=== PATIENT | male | born 1985 | race Caucasian/White ===

== ENCOUNTER → 2020-07-28 13:38 | Outpatient (CLI) | payer OTHER, SELFPAY ==
--- NOTE | ~2020-07-28 | US_ITS ---
EXAMINATION: US retroperitoneal comp DATE: 07/28/2020 14:05 INDICATION: Renal colic. Abdominal pain. Enlarged kidney. TECHNIQUE: Multiple ultrasound grayscale images of the kidneys were obtained. COMPARISON: None. FINDINGS: The right kidney measures 13.5 x 5.6 x 6.5 cm. The left kidney measures 14.0 x 6.2 x 6.0 cm. The kidn eys demonstrate normal echogenicity. Left hydronephrosis. 7 mm echogenic and shadowing stone at the l ower pole of the left kidney. No right-sided hydronephrosis or nephrolithiasis. The bladder is normal . IMPRESSION: 1. Mild left hydronephrosis with 7 mm stone at the lower pole of the left kidney suggesting possibil ity of a nonvisualized obstructing renal stone. Reviewed, dictated and finalized at location A. IMPRESSION: 1. Mild left hydronephrosis with 7 mm stone at the lower pole of the left kidn ey suggesting possibility of a nonvisualized obstructing renal stone.
== END ==
PROVIDERS: Visit Provider Urology
DX: N23 Unspecified renal colic (principal)
CPT/HCPCS: 76770

== ENCOUNTER → 2020-08-10 08:01 | Outpatient (CLI) | payer OTHER, SELFPAY ==
--- NOTE | ~2020-08-10 | CT_ITS ---
EXAMINATION: CT abdomen pelvis wo con EXAM DATE: 08/10/2020 08:21 INDICATION: Renal colic. TECHNIQUE: Spiral CT of the abdomen and pelvis was performed without contrast. Axial, coronal and sag ittal images were reviewed. The dose-length product (DLP) for this examination was 766.34 mGy-cm. T he exposure was tailored according to patient size (auto mA exposure control), and iterative reconstr uction (ASIR) was used as additional dose reduction technique. There is no prior study for compariso n. FINDINGS: There are bilateral kidney stones, larger stone burden on the left with an inferior stone o r stones measuring about 9 mm in size. There are 2 punctate right calyceal stones. Mildly dilated rig ht renal pelvis, but no obstructing ureteral stones. The prostate is unremarkable. The bladder is un remarkable. The liver, spleen, adrenal glands and pancreas are unremarkable. Gallbladder is unremar kable. No biliary obstruction. There is no retroperitoneal or pelvic lymphadenopathy. The appendix is normal. The stomach and small bowel are unremarkable. There is expected amount of c olonic stool. No free intraperitoneal gas. The heart is normal in size. There are no pericardial or pleural effusions. The lung bases are unremarkable. The bones are unremarkable. IMPRESSION: Bilateral calyceal stones. Dilated left renal pelvis without obstructing etiology identif ied. Reviewed, dictated and finalized at location A. IMPRESSION: Bilateral calyceal stones. Dilated left renal pelvis without obstru cting etiology identified.
== END ==
PROVIDERS: PCP Internal Medicine; Visit Provider Urology
DX: N23 Unspecified renal colic (principal); N20.0 Calculus of kidney
CPT/HCPCS: 74176

== ENCOUNTER → 2020-08-22 10:06 | Outpatient (CLI) | payer OTHER, SELFPAY ==
--- NOTE | ~2020-08-22 | XR_ITS ---
XR abdomen/kub 1V 08/22/2020 10:45 Indication: Renal colic Procedure: KUB Comparison: No prior studies for comparison. Findings: Bowel gas pattern is nonobstructive. Moderate colonic fecal loading. There are clustered st ones in the left kidney. No acute osseous abnormality. Impression: 1: Left nephrolithiasis. Reviewed, dictated and finalized at location A. Impression: 1: Left nephrolithiasis.
== END ==
PROVIDERS: PCP Internal Medicine; Visit Provider Urology
DX: N20.0 Calculus of kidney (principal)
CPT/HCPCS: 74018

== ENCOUNTER → 2020-09-29 15:24 | Outpatient (CLI) | payer OTHER, SELFPAY ==
--- NOTE | ~2020-09-29 | XR_ITS ---
XR abdomen/kub 1V 09/29/2020 15:41 Indication: Renal colic Procedure: KUB Comparison: 08/22/2020 Findings: There are multiple left renal stones. Bowel gas pattern nonobstructive. Moderate colonic fe lesli loading. No acute osseous abnormality. Impression: 1: Left nephrolithiasis. Reviewed, dictated and finalized at location A. Impression: 1: Left nephrolithiasis.
== END ==
PROVIDERS: PCP Internal Medicine; Visit Provider Nurse Practitioner Adult Health
DX: N23 Unspecified renal colic (principal); N20.0 Calculus of kidney
CPT/HCPCS: 74018

== ENCOUNTER → 2020-10-07 10:24 | Outpatient (CLI) | payer OTHER, SELFPAY ==
--- NOTE | ~2020-10-07 | XR_ITS ---
EXAMINATION: XR abdomen/kub 1V DATE: 10/07/2020 11:55 INDICATION: Left ureteral stone. TECHNIQUE: A supine view of the abdomen on 2 radiographs was obtained. COMPARISON: 09/29/2020 FINDINGS: 11 mm cluster of stones at a lower pole calyx of the left kidney. There are three, 3-4 mm stones in t he mid to distal left ureter projecting over the left sacral ala projecting medial to couple unchange d bone islands. No stones seen at the right kidney or ureter. Moderate amount of stool scattered thro ughout the colon. No dilated loops of bowel to suggest obstruction. Visualized lung bases are clear. Heart size is normal. IMPRESSION: 1. Left nephrolithiasis with 1 mm cluster of stones at a lower pole calyx of the left kidney and thre e, 3-4 mm stones in the mid to distal left ureter. Reviewed, dictated and finalized at location A. IMPRESSION: 1. Left nephrolithiasis with 1 mm cluster of stones at a lower pole calyx of th e left kidney and three, 3-4 mm stones in the mid to distal left ureter.
== END ==
PROVIDERS: PCP Internal Medicine; Visit Provider Urology
DX: N20.1 Calculus of ureter (principal)
CPT/HCPCS: 74018

== ENCOUNTER 2020-10-10 07:06 | Outpatient (CLI) | payer OTHER, SELFPAY ==
--- NOTE | 2020-10-10 07:23 | ECG_ITS ---
Measurements Intervals [place] Rate: 76 P: 50 ME: 135 QRS: 50 QRSD: 117 T: 28 QT: 379 QTc: 428 Interpretive Statements SINUS RHYTHM WITH SINUS ARRHYTHMIA MODERATE INTRAVENTRICULAR CONDUCTION DELAY BORDERLINE ST-T WAVE ABNORMALITY- INFERIOR LEADS BORDERLINE ECG Electronically Signed On 10-10-2020 8:13:36 CDT by Steve Tejada D.O.
[2020-10-10 07:39] LABS: Anion Gap 10 mmol/L (8-16); Blood Urea Nitrogen 12 mg/dL (9-20); Calcium 10.1 mg/dL (8.4-10.2); Carbon Dioxide 30 mmol/L (22-30); Chloride 100 mmol/L (98-107); Estimated Glomerular Filt Rate > 60; Glucose 153 mg/dL (65-110); Potassium 4.1 mmol/L (3.4-5.0); Sodium 140 mmol/L (137-145)
== END 2020-10-10 07:07 | disposition home or self-care (01) ==
PROVIDERS: PCP Internal Medicine; Visit Provider Anesthesiology
DX: E11.9 Type 2 diabetes mellitus without complications (principal); Z01.818 Encounter for other preprocedural examination; I45.9 Conduction disorder, unspecified
CPT/HCPCS: 36415; 80048; 93005

== ENCOUNTER 2020-10-10 21:29 | Emergency (ER) | payer OTHER, SELFPAY ==
[2020-10-10] VITALS (16 sets, daily range): BP systolic 117–150; BP diastolic 80–96; PULSE 97; RESP 18; TEMP 36.7; O2SAT 94–100
--- NOTE | ~2020-10-10 | CT_ITS ---
EXAMINATION: CT abdomen pelvis wo con DATE: 10/10/2020 22:24 INDICATION: Left flank pain TECHNIQUE: Computed tomography (CT) of the abdomen and pelvis was performed without intravenous contr ast. Automated exposure control and iterative reconstruction technique were employed. The dose-length product was 449.75 mGy-cm. COMPARISON: 08/10/20 FINDINGS: Unchanged 5 mm right middle lobe nodule. Heart size is normal. No pericardial or pleural effusion. Li galo, gallbladder, spleen, pancreas and bilateral adrenal glands are normal. Bowels including the appe ndix are normal. No free intraperitoneal gas or fluid. No pathologically enlarged abdominal or pelvic lymphadenopathy. Mild degenerative skeletal changes in the spine and at the bilateral hips. There is a cluster of 4 stones measuring from 3-5 mm at the distalmost left ureter. There is more pro ximal mild left hydroureter and moderate to severe left hydronephrosis. 8 mm stone at a lower pole ca lyx of the left kidney with a couple additional punctate 1 mm or smaller right renal stones. 3 mm and 2 mm nonobstructing stones in the right kidney. Latter is normal. IMPRESSION: 1. Bilateral nephrolithiasis with a linear collection of four, 3-5 mm stones at the distalmost left u reter resulting in moderate to severe left hydronephrosis. Reviewed, dictated and finalized at location A. IMPRESSION: 1. Bilateral nephrolithiasis with a linear collection of four, 3-5 mm stones at the distalmost left ureter resulting in moderate to severe left hydronephrosis .
[2020-10-10] MEDS: SODIUM CHLORIDE 0.9% IV 1,000 ML 999 ML IV CONT (22:07)
[2020-10-10] MEDS: MORPHINE SULFATE (*CRX) 4 MG/ML INJ IV PUSH (22:08)
[2020-10-10] MEDS: ONDANSETRON INJ 4 MG/2 ML VIAL IV PUSH (22:08)
[2020-10-10 22:19] LABS: Basophils Percent Auto 0.4 % (0.2-1.2); Eosinophils Percent Auto 0.4 % (0-4.4); Hematocrit 43.2 % (42.0-52.0); Hemoglobin 14.3 g/dL (14.0-18.0); Immature Granulocyte Absolute 0.01 K/mm3 (0.00-0.031); Immature Granulocyte Percent A 0.1 % (0-0.5); Lymphocytes Absolute Auto 0.93 K/mm3 (0.9-3.2); Lymphocytes Percent Auto 11.3 % (18.3-44.2); Mean Corpuscular HGB Conc 33.1 g/dl (32-36); Mean Corpuscular Hemoglobin 29.1 pg (26-34); Mean Platelet Volume 9.8 fl (7.4-10.4); Monocytes Absolute Auto 0.8 K/mm3 (0.1-0.6); Monocytes Percent Auto 9.9 % (2.6-8.5); Neutrophils Absolute Auto 6.4 K/mm3 (1.3-6.7); Neutrophils Percent Auto 77.9 % (45.5-73.1); Platelet Count Result 251 k/mm3 (150-375); Red Blood Count 4.91 M/mm3 (4.6-6.20); Red Cell Distribution Width 12.6 % (11.5-14.5); White Blood Count 8.2 K/mm3 (4.5-10.0)
[2020-10-10 22:52] LABS: Alanine Aminotransferase 21 U/L (4-50); Albumin Level 4.2 g/dL (3.5-5.1); Alkaline Phosphatase 68 U/L (38-126); Anion Gap 9 mmol/L (8-16); Aspartate Amino Transferase 31 U/L (17-59); Bilirubin,Total 0.5 mg/dL (0.2-1.3); Blood Urea Nitrogen 15 mg/dL (9-20); Calcium 9.9 mg/dL (8.4-10.2); Carbon Dioxide 29 mmol/L (22-30); Chloride 97 mmol/L (98-107); Estimated CRCL calculation 115 ml/min; Estimated Glomerular Filt Rate > 60; Glucose 191 mg/dL (65-110); Lipase 114 U/L (23-300); Potassium 3.7 mmol/L (3.4-5.0); Sodium 135 mmol/L (137-145)
[2020-10-10 23:02] LABS: Add Urine Microscopic? YES; Appearance Urine Clear (Clear); Bilirubin Urine Negative (Negative); Blood Urine 3+ (Negative); Color Urine Yellow (Yellow); Glucose Urine UA 3+ mg/dL (Negative); Ketones Urine Negative (Negative); Leukocyte Esterase Ur Negative LEU/UL (Negative); Mucus Urine Rare /lpf; Nitrate Urine Negative (Negative); Protein Urine 1+ mg/dL (Negative); RBC Urine >75 /hpf (0-2); Specific Grav Ur 1.024 (1.001-1.035); Urobilinogen Urine Negative mg/dL (<2.0); WBC Urine 0-3 /hpf
--- NOTE | 2020-10-10 23:02 | ED.GENADULT ---
HPI - General Adult General Chief complaint: Abdominal Pain Stated complaint: Kidney stone Time Seen by Provider: 10/10/20 21:48 History of Present Illness HPI narrative: Patient a 35-year-old gentleman who presents the emergency department with chief complaint of left-sided flank pain. Patient reports he is being followed for kidney stones by Dr. Garcia and reports that he is currently been attempting to pass a stone. Patient states that it got worse today reports that the pain is sharp reports not improved by anything reports that he is pacing around the room and unable to get comfortable. Patient denies fever Related Data Home Medications Medication Instructions Recorded Confirmed allopurinol 300 mg PO DAILY 10/09/20 10/09/20 atorvastatin 20 mg PO DAILY 10/09/20 10/09/20 dulaglutide [Trulicity] 3 mg SUBCUT WEEKLY 10/09/20 10/09/20 empagliflozin [Jardiance] 10 mg PO DAILY 10/09/20 10/09/20 glimepiride 2 mg PO BID 10/09/20 10/09/20 insulin lispro protamin-lispro 24 unit SUBCUT BID 10/09/20 10/09/20 [Humalog Mix 75-25(U-100)Insuln] metformin 1,000 mg PO BID 10/09/20 10/09/20 tamsulosin mg PO 10/10/20 tamsulosin mg PO 10/10/20 tramadol mg 10/10/20 tramadol mg 10/10/20 Allergies Allergy/AdvReac Type Severity Reaction Status Date / Time No Known Allergies Allergy Verified 10/10/20 21:41 Review of Systems Review of Systems: Narrative: A 10 system review of systems was completed on the patient and is negative except for what is stated in the HPI. Nursing and ancillary documentation was reviewed. [facility] Social History Social History Smoking status: Never smoker Alcohol intake: current Drinks per week: 1 Exam Narrative: Exam Narrative: GENERAL: Well-appearing, well-nourished, and in no acute distress. HEAD: Normocephalic, atraumatic. EYES: PERRLA and EOMI. ENT: Nares clear, no rhinorrhea or epistaxis. Mucous membranes moist. NECK: Supple. CHEST: Clear to auscultation. No respiratory distress. HEART: Regular rate and rhythm. No murmur heard. Normal peripheral pulses. ABDOMEN: Soft, nontender, nondistended, normal active bowel sounds. EXTREMITIES: Normal range of motion. No edema. SKIN: Warm, dry, no rash. NEURO: No focal deficits. Alert and oriented x3. PSYCH: Normal mood and affect. Course Vital Signs Vital signs: Vital Signs Temperature 36.7 C 10/10/20 21:45 Pulse Rate 97 10/10/20 21:45 Respiratory Rate 18 10/10/20 21:45 Blood Pressure 150/96 H 10/10/20 21:45 Pulse Oximetry 100 10/10/20 21:45 Temperature 36.7 C 10/10/20 21:45 Pulse Rate 97 10/10/20 21:45 Respiratory Rate 18 10/10/20 21:45 Blood Pressure 127/81 10/10/20 23:16 Pulse Oximetry 98 10/10/20 23:16 Medical Decision Making Vital Signs Vital Signs: Vital Signs Temperature 36.7 C 10/10/20 21:45 Pulse Rate 97 10/10/20 21:45 Respiratory Rate 18 10/10/20 21:45 Blood Pressure 150/96 H 10/10/20 21:45 Pulse Oximetry 100 10/10/20 21:45 Temperature 36.7 C 10/10/20 21:45 Pulse Rate 97 10/10/20 21:45 Respiratory Rate 18 10/10/20 21:45 Blood Pressure 127/81 10/10/20 23:16 Pulse Oximetry 98 10/10/20 23:16 Lab Data Result diagrams: 10/10/20 22:10 10/10/20 22:10 Labs: Lab Results 10/10/20 10/10/20 10/10/20 Range/Units 22:10 22:10 22:37 WBC 8.2 (4.5-10.0) K/mm3 RBC 4.91 (4.6-6.20) M/mm3 Hgb 14.3 (14.0-18.0) g/dL Hct 43.2 (42.0-52.0) % MCV 88.0 (80-100) fl MCH 29.1 (26-34) pg MCHC 33.1 (32-36) g/dl RDW 12.6 (11.5-14.5) % Plt Count 251 (150-375) k/mm3 MPV 9.8 (7.4-10.4) fl Immature Gran % (Auto) 0.1 (0-0.5) % Neut % (Auto) 77.9 H (45.5-73.1) % Lymph % (Auto) 11.3 L (18.3-44.2) % Gila % (Auto) 9.9 H (2.6-8.5) % Eos % (Auto) 0.4 (0-4.4) % Baso % (Auto) 0.4 (0.2-1.2) % Lymph # (Auto
[2020-10-10] MEDS: HYDROmorphone HCL INJ (*CRX) 1 MG/ML SYR IV PUSH (23:22)
[2020-10-11] VITALS (7 sets, daily range): BP systolic 116–124; BP diastolic 75–78; PULSE 67; RESP 16; O2SAT 95–98
== END 2020-10-11 00:56 | disposition home or self-care (01) ==
PROVIDERS: Emergency Provider Emergency Medicine; PCP Internal Medicine
DX: N13.2 Hydronephrosis with renal and ureteral calculous obstruction (principal); Z79.84 Long term (current) use of oral hypoglycemic drugs; E11.9 Type 2 diabetes mellitus without complications
CPT/HCPCS: 36415; 74176; 80053; 81001; 83690; 85025; 96361; 96374; 96375; 99284; J1170; J2270; J2405; J7030

== ENCOUNTER 2020-10-11 20:08 | Inpatient (IN) | payer OTHER, SELFPAY ==
--- NOTE | ~2020-10-11 | XR_ITS ---
EXAMINATION: XR abdomen/kub 1V DATE: 10/11/2020 20:28 INDICATION: Kidney stone TECHNIQUE: A supine view of the abdomen on 2 radiographs was obtained. COMPARISON: CT dated 10/10/2020 FINDINGS: Steinstrasse with linear collection of multiple small stones measuring up to 5 mm situated along a 2. 5 cm length of the distalmost left ureter. There are a few additional small stones are seen at the lo wer pole of the left kidney and 3 mm stone at the upper pole of the right kidney. Normal bowel gas pa ttern with large amount of stool in the proximal colon. Lung bases are clear. Mild lumbar dextrocurva ture. IMPRESSION: 1. Bilateral nephrolithiasis including steinstrasse with linear collection of multiple stones measuri ng up to 5 mm at the distalmost left ureter. Reviewed, dictated and finalized at location A. IMPRESSION: 1. Bilateral nephrolithiasis including steinstrasse with linear collection of m ultiple stones measuring up to 5 mm at the distalmost left ureter.
--- NOTE | ~2020-10-11 | XR_ITS ---
EXAMINATION: XR retrograde pyelo w/stent LT EXAM DATE: 10/13/2020 12:23 INDICATION: Left-sided retrograde stent. TECHNIQUE: Fluoroscopy used during XR retrograde pyelo w/stent LT performed by Dr. Ian avila MD, urologist. The radiologist Jamarcus Bates M.D. dictating this report of the image(s) availabl e was not present for the procedure. Total fluoroscopic time of 46. The DAP for this procedure was 673 radcm2. A total of 11 images sent to PACS from the exam. Cine run(s) available for review. FINDINGS: Left ureter was cannulated, injected. There is mild left hydronephrosis. A double-J ureter al stent was placed. Correlate with procedure note. IMPRESSION: Mild left hydronephrosis. Stent in position. Reviewed, dictated and finalized at location A.
[2020-10-11 20:09] VITALS: BP 154/97; PULSE 99; RESP 20; TEMP 36.8; O2SAT 99
[2020-10-11 21:00] VITALS: RESP 16; O2SAT 99
[2020-10-11 21:08] LABS: Basophils Percent Auto 0.3 % (0.2-1.2); Eosinophils Percent Auto 0.3 % (0-4.4); Hematocrit 42.3 % (42.0-52.0); Immature Granulocyte Absolute 0.01 K/mm3 (0.00-0.031); Immature Granulocyte Percent A 0.1 % (0-0.5); Lymphocytes Percent Auto 10.2 % (18.3-44.2); Mean Corpuscular HGB Conc 33.1 g/dl (32-36); Mean Corpuscular Hemoglobin 29.2 pg (26-34); Mean Corpuscular Volume 88.3 fl (80-100); Monocytes Absolute Auto 0.7 K/mm3 (0.1-0.6); Monocytes Percent Auto 10.5 % (2.6-8.5); Neutrophils Absolute Auto 5.4 K/mm3 (1.3-6.7); Neutrophils Percent Auto 78.6 % (45.5-73.1); Platelet Count Result 228 k/mm3 (150-375); Red Blood Count 4.79 M/mm3 (4.6-6.20); Red Cell Distribution Width 12.8 % (11.5-14.5); White Blood Count 6.9 K/mm3 (4.5-10.0)
[2020-10-11] MEDS: SODIUM CHLORIDE 0.9% IV 1,000 ML 999 ML IV CONT (21:11)
[2020-10-11] MEDS: ONDANSETRON INJ 4 MG/2 ML VIAL IV PUSH (21:12)
[2020-10-11] MEDS: HYDROmorphone HCL INJ (*CRX) 1 MG/ML SYR IV PUSH (21:12)
[2020-10-11 21:15] VITALS: RESP 16; O2SAT 99
[2020-10-11 21:20] LABS: Alanine Aminotransferase 20 U/L (4-50); Albumin Level 3.8 g/dL (3.5-5.1); Alkaline Phosphatase 53 U/L (38-126); Anion Gap 8 mmol/L (8-16); Aspartate Amino Transferase 26 U/L (17-59); Bilirubin,Total 0.5 mg/dL (0.2-1.3); Blood Urea Nitrogen 11 mg/dL (9-20); Calcium 9.2 mg/dL (8.4-10.2); Carbon Dioxide 29 mmol/L (22-30); Chloride 101 mmol/L (98-107); Estimated CRCL calculation 142 ml/min; Estimated Glomerular Filt Rate > 60; Glucose 147 mg/dL (65-110); Lipase 421 U/L (23-300); Potassium 4.2 mmol/L (3.4-5.0); Sodium 138 mmol/L (137-145)
--- NOTE | 2020-10-11 21:20 | PC.NURSE ---
Addendum entered by Inez Hinson RN 10/11/20 21:24: Pt denies difficulty urinating. urine clear, yellow. voided approx. 450 ml on arrival without issue. Original Note: pt here last night for left flank pain and known kidney stone. scheduled for surgery 10/13 with urology. pt reports no changes and pain similar to last night. iv placed, labs drawn, and pt medicated as ordered. call light in reach.
--- NOTE | 2020-10-11 21:25 | ED.GENADULT ---
HPI - General Adult General Chief complaint: Urogenital-Male Stated complaint: kidney stone Time Seen by Provider: 10/11/20 20:22 History of Present Illness HPI narrative: Patient 35-year-old gentleman who presents the emergency department with chief complaint of flank pain. Patient was seen in the emergency department last night after he had pain from the kidney stone that he is scheduled to have a procedure on Monday. Patient sees Dr. Garcia as his primary urologist and reports that he has a stone in the distal ureter. The patient was taking tramadol was seen in the ER pain was controlled and the patient was started on hydrocodone as an outpatient. The patient returns after he feels as though his pain has gotten worse at home and reports he been unable to manage it at home. Related Data Home Medications Medication Instructions Recorded Confirmed allopurinol 300 mg PO DAILY 10/09/20 10/11/20 atorvastatin 20 mg PO DAILY 10/09/20 10/11/20 dulaglutide [Trulicity] 3 mg SUBCUT WEEKLY 10/09/20 10/11/20 empagliflozin [Jardiance] 10 mg PO DAILY 10/09/20 10/11/20 glimepiride 2 mg PO BID 10/09/20 10/11/20 insulin lispro protamin-lispro 24 unit SUBCUT BID 10/09/20 10/11/20 [Humalog Mix 75-25(U-100)Insuln] metformin 1,000 mg PO BID 10/09/20 10/11/20 tamsulosin 0.4 mg PO DAILY 10/10/20 10/11/20 tramadol 50 mg PO PRN 10/10/20 Allergies Allergy/AdvReac Type Severity Reaction Status Date / Time No Known Allergies Allergy Verified 10/11/20 20:12 Review of Systems Review of Systems: Narrative: A 10 system review of systems was completed on the patient and is negative except for what is stated in the HPI. Nursing and ancillary documentation was reviewed. [facility] Social History Social History Smoking status: Never smoker Alcohol intake: current Drinks per week: 1 Gender identity (if verbalized by the patient): Male Exam Narrative: Exam Narrative: GENERAL: Well-appearing, well-nourished, and in no acute distress. HEAD: Normocephalic, atraumatic. EYES: PERRLA and EOMI. ENT: Nares clear, no rhinorrhea or epistaxis. Mucous membranes moist. NECK: Supple. CHEST: Clear to auscultation. No respiratory distress. HEART: Regular rate and rhythm. No murmur heard. Normal peripheral pulses. ABDOMEN: Soft, nontender, nondistended, normal active bowel sounds. EXTREMITIES: Normal range of motion. No edema. SKIN: Warm, dry, no rash. NEURO: No focal deficits. Alert and oriented x3. PSYCH: Normal mood and affect. Course Vital Signs Vital signs: Vital Signs Temperature 36.8 C 10/11/20 20:09 Pulse Rate 99 10/11/20 20:09 Respiratory Rate 20 10/11/20 20:09 Blood Pressure 154/97 H 10/11/20 20:09 Pulse Oximetry 99 10/11/20 20:09 Temperature 36.8 C 10/11/20 20:09 Pulse Rate 99 10/11/20 20:09 Respiratory Rate 16 10/11/20 21:15 Blood Pressure 154/97 H 10/11/20 20:09 Pulse Oximetry 99 10/11/20 21:15 Medical Decision Making Vital Signs Vital Signs: Vital Signs Temperature 36.8 C 10/11/20 20:09 Pulse Rate 99 10/11/20 20:09 Respiratory Rate 20 10/11/20 20:09 Blood Pressure 154/97 H 10/11/20 20:09 Pulse Oximetry 99 10/11/20 20:09 Temperature 36.8 C 10/11/20 20:09 Pulse Rate 99 10/11/20 20:09 Respiratory Rate 16 10/11/20 21:15 Blood Pressure 154/97 H 10/11/20 20:09 Pulse Oximetry 99 10/11/20 21:15 Lab Data Result diagrams: 10/11/20 21:00 10/11/20 21:00 Labs: Lab Results 10/11/20 10/11/20 Range/Units 21:00 21:00 WBC 6.9 (4.5-10.0) K/mm3 RBC 4.79 (4.6-6.20) M/mm3 Hgb 14.0 (14.0-18.0) g/dL Hct 42.3 (42.0-52.0) % MCV 88.3 (80-100) fl MCH 29.2 (26-34) pg MCHC 33.1 (32-36) g/dl RDW 12.8 (11.5-14.5) % Plt Count 228 (150-375) k/mm3 MPV 10.0 (7.4-10.4) fl Immature Gran % (Auto) 0.1 (0-0.5) % Neut % (Auto) 78.6 H
[2020-10-11] MEDS: KETOROLAC 30 MG/ML VIAL (*BKC) 15 MG IV PUSH (21:56)
--- NOTE | 2020-10-11 22:52 | PC.NURSE ---
Report received from RORO Wiley RN. Awaiting patient arrival to floor.
--- NOTE | 2020-10-11 22:53 | PC.NURSE ---
Report to LAZARUS Duffy. Pt admitted to room 323-2.
[2020-10-11 22:54] VITALS: BP 154/97; PULSE 99; RESP 16; O2SAT 99
[2020-10-11 23:00] VITALS: BP 139/79; PULSE 82; RESP 18; TEMP 36.3; O2SAT 98
--- NOTE | 2020-10-11 23:11 | ADMGEN ---
This patient, Weston Magdaleno, was admitted to 3 Med Surg Room 323-02@v [id number]. Patient/family oriented to hospital policies and general routines including ID bracelet, bed and alarms, visiting hours, pain management, procedures, bathroom and other care routines, personal items, smoking policy, room service/diet, and visiting hours. Information on how to activate the Rapid Response Team has been discussed. Patient/Family are encouraged to report perceived risks to care and to ask questions if they do not understand what they are told or what they should do.
[2020-10-11] MEDS: SODIUM CHLORIDE 0.9% IV 1,000 ML 125 ML IV CONT (23:25)
--- NOTE | 2020-10-12 00:20 | PM.IMHP ---
H&P: HPI History of Present Illness Date/Time: 10/12/20 00:20 Chief Complaint: FLANK PAIN Narrative: THIS IS A 35-YEAR-OLD MALE WITH PAST MEDICAL HISTORY SIGNIFICANT FOR GOUT, TYPE 2 DIABETES MELLITUS, DIET AND ORAL AGENTS CONTROLLED WELL HUMALOG INSULIN, UROLITHIASIS PATIENT PRESENTED TO THE EMERGENCY ROOM DUE TO LEFT FLANK PAIN NOW ON AND OFF FOR A WEEK OR SO BUT WORSE TODAY PATIENT HAD AND OUTPATIENT EXTRACORPOREAL WAVE LITHOTRIPSY. HE DENIES ANY FEVERS CHILLS RIGORS ANY NAUSEA VOMITING DIARRHEA PAIN IS LOCALIZED TO THE LEFT FLANK. PAIN WAS 10/10 IN INTENSITY. HE HAD BEEN TO THE EMERGENCY DEPARTMENT THE NIGHT BEFORE AND WAS DISCHARGED WITH ORAL MEDICATIONS FOR PAIN CONTROL HOWEVER HE HAD TO RETURN TODAY DUE TO UNCONTROLLED PAIN. CT OF ABDOMEN AND PELVIS WAS SIGNIFICANT FOR SEVERAL STONES IN THE LEFT DISTAL URETER WITH HYDRONEPHROSIS. Review of Systems Review of Systems: Narrative: PATIENT PRESENTED TO THE EMERGENCY ROOM DUE TO LEFT FLANK PAIN Constitutional: Constitutional: Denies chills and Denies fever(s) Eyes: Eyes: Denies change in vision ENT: Denies nasal congestion, Denies nasal discharge and Denies nasal obstruction Cardiovascular: Cardiovascular: Denies syncope, Denies irregular heart rhythm, Denies claudication, Denies leg edema, Denies lightheadedness, Denies radiating jaw, neck or arm pain, Denies palpitations and Denies dyspnea on exertion Respiratory: Respiratory: Denies cough and Denies dyspnea Gastrointestinal: Gastrointestinal: Denies abdominal pain, Denies diarrhea, Denies nausea and Denies vomiting Genitourinary: Genitourinary: Reports flank pain Musculoskeletal: Musculoskeletal: Reports no additional musculoskeletal complaints Integumentary/Breasts: Skin/Breast: Reports system reviewed and no additional complaints, except as docu Neurologic: Reports system reviewed and no additional complaints, except as documented Psychiatric: Psychiatric: Reports no additional psychiatric complaints Endocrine: Endocrine: Reports no additional endocrine complaints Hematologic/Lymphatic: Hematologic/Lymphatic: Reports no additional hematologic/lymphatic complaints Allergic/Immunologic: Allergic/Immunologic: Reports no additional allergic/immunologic complaints [facility] Family History Family History (Updated 10/11/20 @ 23:36 by Loulou Gutierrez RN) Father Diabetes mellitus Mother Hypertension Social History Social History Smoking status: Never smoker Alcohol intake: current Drinks per week: 1 Substance use: never Substance use type: does not use Gender identity (if verbalized by the patient): Male Spiritual care concerns: No Meds Home Medications and Allergies Home Medications Medication Instructions Recorded Confirmed Type allopurinol 300 mg PO DAILY 10/09/20 10/11/20 History atorvastatin 20 mg PO DAILY 10/09/20 10/11/20 History dulaglutide [Trulicity] 3 mg SUBCUT WEEKLY 10/09/20 10/11/20 History empagliflozin [Jardiance] 10 mg PO DAILY 10/09/20 10/11/20 History glimepiride 2 mg PO BID 10/09/20 10/11/20 History insulin lispro protamin-lispro 24 unit SUBCUT BID 10/09/20 10/11/20 History [Humalog Mix 75-25(U-100)Insuln] metformin 1,000 mg PO BID 10/09/20 10/11/20 History tamsulosin 0.4 mg PO DAILY 10/10/20 10/11/20 History hydrocodone-acetaminophen 1 tablet PO Q6H PRN 3 Days #12 10/11/20 10/11/20 Rx tablet ondansetron 4 mg PO Q8H PRN #10 tablet 10/11/20 10/11/20 Rx Allergies Allergy/AdvReac Type Severity Reaction Status Date / Time No Known Allergies Allergy Verified 10/11/20 23:19 Vital Signs Vital Signs - 24 hr 10/11/20 20:09 10/11/20 21:00 10/11/20 21:15 Temperature 98.2 F Pulse Rate 99 Respiratory Rate 20 16 16 Blood Pressure 154/97 H Pulse Oximetry 99 99 99 10/11/20 22:54 10/11/20 23:00 Temperature 97.3 F L Pulse Rate 99 82 Respiratory Rate 16 18 Blood Pressure 154/
[2020-10-12 06:00] VITALS: BP 132/76; PULSE 86; RESP 20; TEMP 36.5; O2SAT 98
[2020-10-12 06:59] LABS: Basophils Percent Auto 0.4 % (0.2-1.2); Eosinophils Absolute Auto 0.1 K/mm3 (0-0.3); Eosinophils Percent Auto 2.4 % (0-4.4); Hemoglobin 12.3 g/dL (14.0-18.0); Immature Granulocyte Absolute 0.02 K/mm3 (0.00-0.031); Immature Granulocyte Percent A 0.4 % (0-0.5); Lymphocytes Absolute Auto 1.21 K/mm3 (0.9-3.2); Lymphocytes Percent Auto 22.6 % (18.3-44.2); Mean Corpuscular HGB Conc 33.2 g/dl (32-36); Mean Corpuscular Hemoglobin 29.3 pg (26-34); Mean Corpuscular Volume 88.1 fl (80-100); Mean Platelet Volume 10.3 fl (7.4-10.4); Monocytes Absolute Auto 0.7 K/mm3 (0.1-0.6); Monocytes Percent Auto 12.3 % (2.6-8.5); Neutrophils Absolute Auto 3.3 K/mm3 (1.3-6.7); Neutrophils Percent Auto 61.9 % (45.5-73.1); Platelet Count Result 207 k/mm3 (150-375); Red Cell Distribution Width 12.7 % (11.5-14.5); White Blood Count 5.4 K/mm3 (4.5-10.0)
[2020-10-12 07:05] LABS: Anion Gap 8 mmol/L (8-16); Blood Urea Nitrogen 10 mg/dL (9-20); Calcium 8.7 mg/dL (8.4-10.2); Carbon Dioxide 28 mmol/L (22-30); Chloride 104 mmol/L (98-107); Estimated CRCL calculation 115 ml/min; Estimated Glomerular Filt Rate > 60; Glucose 100 mg/dL (65-110); Potassium 3.7 mmol/L (3.4-5.0); Sodium 140 mmol/L (137-145)
[2020-10-12] MEDS: SODIUM CHLORIDE 0.9% IV 1,000 ML 125 ML IV CONT (07:46)
[2020-10-12 08:31] LABS: Glucose Point of Care 105 mg/dl (65-105)
[2020-10-12] MEDS: allopurinoL 300 MG TABLET PO (09:02)
[2020-10-12] MEDS: TAMSULOSIN HCL 0.4 MG CAPSULE PO (09:02)
[2020-10-12 10:12] LABS: Glucose Point of Care 99 mg/dl (65-105)
[2020-10-12] MEDS: ATORVASTATIN 20 MG TABLET PO (12:14)
[2020-10-12 12:17] LABS: Glucose Point of Care 90 mg/dl (65-105)
--- NOTE | 2020-10-12 12:50 | WPDUROPN2 ---
Progress Note: A&P Assessment and Plan (1) Hydronephrosis: Code(s): N13.30 - Unspecified hydronephrosis Status: Acute (2) Flank pain: Code(s): R10.9 - Unspecified abdominal pain Status: Acute (3) Ureterolithiasis: Code(s): N20.1 - Calculus of ureter Status: Acute Assessment and Plan: Okay for patient to eat, will plan to proceed with his surgery tomorrow as planned, keep overnight for pain control. NPO after midnight. Obtain consent: Cystoscopy, left ureteroscopy with stone extraction, left stent placement, left retrograde pyelogram and possible holmium laser. Subjective Subjective Date/Time Seen: 10/12/20 12:50 Patient seems to be doing well on pain medication at this time, he states he is in no pain today. He was having severe discomfort over the weekend which brought him to the ER twice, ultimately being admitted the second time. He was already scheduled for Monday with Dr. Garcia for a cystoscopy, left ureteroscopy with stone extraction, left stent placement, left retrograde pyelogram and possible holmium laser. He was seen in the office last week and diagnosed with steinstrasse stones noted on KUB in the left ureter, then placed on the OR schedule for tomorrow. Review of Systems Cardiovascular: Cardiovascular: Denies chest pain Respiratory: Respiratory: Reports no additional respiratory complaints Gastrointestinal: Gastrointestinal: Denies abdominal pain, Denies nausea and Denies vomiting Genitourinary: Genitourinary: Denies hematuria, Denies dysuria, Denies flank pain, Denies urinary frequency, Denies urinary hesitancy and Denies urinary urgency Exam Resp: Effort & Inspection: normal respiratory effort Cardio: Rate: regular rate GI: GI Palp: Yes Soft to palpation and No Tenderness to palpation present (GI) : General: Yes no CVA tenderness Extrem: General: no edema Objective Data Vital Signs Vital Signs: Vital Signs - 24 hr 10/11/20 20:09 10/11/20 21:00 10/11/20 21:15 Temperature 98.2 F Pulse Rate 99 Respiratory Rate 20 16 16 Blood Pressure 154/97 H Pulse Oximetry 99 99 99 10/11/20 22:54 10/11/20 23:00 10/12/20 06:00 Temperature 97.3 F L 97.7 F Pulse Rate 99 82 86 Respiratory Rate 16 18 20 Blood Pressure 154/97 H 139/79 132/76 Pulse Oximetry 99 98 98 Intake/Output Intake/Output: Intake & Output 10/09/20 10/10/20 10/11/20 10/12/20 23:59 23:59 23:59 23:59 Intake Total 1000 1000 Balance 1000 1000 Meds/Results Medications: Active Medications Generic Name Dose Route Start Last Admin Trade Name Freq PRN Reason Stop Dose Admin Hydrocodone Bitart/Acetaminophen 1 tab 10/12/20 00:56 Hydrocodone/Acetaminophen (*Crx) 5-325 Mg Tablet PO Q6H PRN Pain Rated 4-6 Allopurinol 300 mg 10/12/20 08:00 10/12/20 09:02 Allopurinol 300 Mg Tablet PO 300 mg DAILY@0800 KETTY Administration Atorvastatin Calcium 20 mg 10/12/20 09:00 10/12/20 12:14 Atorvastatin 20 Mg Tablet PO 20 mg DAILY KETTY Administration Dextrose 12.5 gm 10/11/20 21:42 Dextrose 50% 25 Gm/50 Ml Syringe IV PUSH PRN PRN Hypoglycemia Protocol Glucagon 1 mg 10/11/20 21:42 Glucagon For Inj 1 Mg Vial IM PRN PRN Hypoglycemia Protocol Glucose 15 gm 10/11/20 21:42 Glucose Oral Gel 15 Gm Of Glucse In 37.5 Gm Tube PO PRN PRN Hypoglycemia Protocol Hydromorphone HCl 1 mg 10/11/20 21:42 Hydromorphone Hcl Inj (*Crx) 1 Mg/Ml Syr IV PUSH Q4H PRN Pain Rated 7-10 Sodium Chloride 1,000 mls @ 125 mls/hr 10/11/20 21:45 10/12/20 07:46 Normal Saline Iv IV CONT 125 mls/hr .Q8H KETTY Administration Dextrose 1,000 mls @ 100 mls/hr 10/11/20 21:42 Dextrose 5% 1,000 Ml IVPB PRN PRN Hypoglycemia Protocol Insulin Lispro Protam/Lispro Human 24 units 10/12/20 08:00 10/12/20 09:03 Insulin Npl/Insulin Lispro 75/25 100 Units/Ml Vial (*Bkc) SUB-Q Not Giv
[2020-10-12 14:00] VITALS: BP 126/76; PULSE 100; RESP 16; TEMP 36.6; O2SAT 99
[2020-10-12] MEDS: HYDROmorphone HCL INJ (*CRX) 1 MG/ML SYR IV PUSH (16:25)
--- NOTE | 2020-10-12 17:02 | PM.IMPN ---
Progress Note: A&P Assessment and Plan (1) Flank pain: Code(s): R10.9 - Unspecified abdominal pain Status: Acute Assessment and Plan: PLACED IN OBSERVATION CARB CONSISTENT DIET VITALS PER UNIT PROTOCOL UP AT BENJA PAIN CONTROL IV FLUIDS (2) Ureterolithiasis: Code(s): N20.1 - Calculus of ureter Status: Acute Assessment and Plan: UROLOGY HAS BEEN CONSULTED (3) Hydronephrosis: Code(s): N13.30 - Unspecified hydronephrosis Status: Acute Assessment and Plan: SECONDARY TO OBSTRUCTION IV FLUIDS Subjective Date/time seen: 10/12/20 17:02 Pt is admitted for ureterolithiasis; agree with current H/P Objective Data Vital Signs Vital Signs: Vital Signs - 24 hr 10/11/20 20:09 10/11/20 21:00 10/11/20 21:15 Temperature 36.8 C Pulse Rate 99 Respiratory Rate 20 16 16 Blood Pressure 154/97 H Pulse Oximetry 99 99 99 10/11/20 22:54 10/11/20 23:00 10/12/20 06:00 Temperature 36.3 C L 36.5 C Pulse Rate 99 82 86 Respiratory Rate 16 18 20 Blood Pressure 154/97 H 139/79 132/76 Pulse Oximetry 99 98 98 10/12/20 14:00 Temperature 36.6 C Pulse Rate 100 Respiratory Rate 16 Blood Pressure 126/76 Pulse Oximetry 99 Intake/Output Intake/Output: Intake & Output 10/09/20 10/10/20 10/11/20 10/12/20 23:59 23:59 23:59 23:59 Intake Total 1000 1590 Balance 1000 1590 Meds/Results Medications: Active Medications Generic Name Dose Route Start Last Admin Trade Name Freq PRN Reason Stop Dose Admin Hydrocodone Bitart/Acetaminophen 1 tab 10/12/20 00:56 Hydrocodone/Acetaminophen (*Crx) 5-325 Mg Tablet PO Q6H PRN Pain Rated 4-6 Allopurinol 300 mg 10/12/20 08:00 10/12/20 09:02 Allopurinol 300 Mg Tablet PO 300 mg DAILY@0800 KETTY Administration Atorvastatin Calcium 20 mg 10/12/20 09:00 10/12/20 12:14 Atorvastatin 20 Mg Tablet PO 20 mg DAILY KETTY Administration Dextrose 12.5 gm 10/11/20 21:42 Dextrose 50% 25 Gm/50 Ml Syringe IV PUSH PRN PRN Hypoglycemia Protocol Glucagon 1 mg 10/11/20 21:42 Glucagon For Inj 1 Mg Vial IM PRN PRN Hypoglycemia Protocol Glucose 15 gm 10/11/20 21:42 Glucose Oral Gel 15 Gm Of Glucse In 37.5 Gm Tube PO PRN PRN Hypoglycemia Protocol Hydromorphone HCl 1 mg 10/11/20 21:42 10/12/20 16:25 Hydromorphone Hcl Inj (*Crx) 1 Mg/Ml Syr IV PUSH 1 mg Q4H PRN Administration Pain Rated 7-10 Dextrose 1,000 mls @ 100 mls/hr 10/11/20 21:42 Dextrose 5% 1,000 Ml IVPB PRN PRN Hypoglycemia Protocol Insulin Lispro Protam/Lispro Human 24 units 10/12/20 08:00 10/12/20 09:03 Insulin Npl/Insulin Lispro 75/25 100 Units/Ml Vial (*Bkc) SUB-Q Not Given BIDWM [facility] Ketorolac Tromethamine 30 mg 10/11/20 21:42 Ketorolac 30 Mg/Ml Vial (*Bkc) IV PUSH 10/16/20 21:43 Q6H PRN Pain Rated 4-6 Ondansetron HCl 4 mg 10/11/20 21:42 Ondansetron Inj 4 Mg/2 Ml Vial IV PUSH Q4H PRN Nausea Tamsulosin HCl 0.4 mg 10/12/20 09:00 10/12/20 09:02 Tamsulosin Hcl 0.4 Mg Capsule PO 0.4 mg DAILY KETTY Administration Radiology Results: ITS Impressions Abdomen X-Ray 10/11/20 20:29 IMPRESSION: 1. Bilateral nephrolithiasis including steinstrasse with linear collection of multiple stones measuring up to 5 mm at the distalmost left ureter. Labs Labs: Laboratory Results - last 24 hr 10/11/20 10/11/20 10/12/20 21:00 21:00 06:19 WBC 6.9 5.4 RBC 4.79 4.20 L Hgb 14.0 12.3 L Hct 42.3 37.0 L MCV 88.3 88.1 MCH 29.2 29.3 MCHC 33.1 33.2 RDW 12.8 12.7 Plt Count 228 207 MPV 10.0 10.3 Immature Gran % (Auto) 0.1 0.4 Neut % (Auto) 78.6 H 61.9 Lymph % (Auto) 10.2 L 22.6 Ballard % (Auto) 10.5 H 12.3 H Eos % (Auto) 0.3 2.4 Baso % (Auto) 0.3 0.4 Lymph # (Auto) 0.70 L 1.21 Ballard # (Auto) 0.7 H 0.7 H Eos # (Auto) 0.0 0.1 Baso # (
[2020-10-12 17:30] LABS: Hemoglobin A1C 7.7 % (<5.7)
[2020-10-12 18:12] LABS: Glucose Point of Care 144 mg/dl (65-105)
[2020-10-12] MEDS: KETOROLAC 30 MG/ML VIAL (*BKC) IV PUSH (18:47)
[2020-10-12 21:20] LABS: Glucose Point of Care 227 mg/dl (65-105)
[2020-10-12 22:00] VITALS: BP 131/85; PULSE 76; RESP 14; TEMP 37.3; O2SAT 98
[2020-10-13] VITALS (9 sets, daily range): BP systolic 109–135; BP diastolic 63–95; PULSE 70–89; RESP 13–16; TEMP 36.2–37.4; O2SAT 97–100
[2020-10-13 07:59] LABS: Glucose Point of Care 172 mg/dl (65-105)
[2020-10-13] MEDS: ATORVASTATIN 20 MG TABLET PO (08:38)
[2020-10-13] MEDS: TAMSULOSIN HCL 0.4 MG CAPSULE PO (08:38)
[2020-10-13] MEDS: allopurinoL 300 MG TABLET PO (08:38)
[2020-10-13 11:06] LABS: Glucose Point of Care 147 mg/dl (65-105)
--- NOTE | 2020-10-13 11:14 | P.PNUR_ITS ---
Subjective Subjective Date/Time Seen: 10/13/20 11:14 Objective Data Vital Signs Vital Signs: Vital Signs - 24 hr 10/12/20 14:00 10/12/20 22:00 10/13/20 06:00 Temperature 36.6 C 37.3 C 36.4 C Pulse Rate 100 76 70 Respiratory Rate 16 14 14 Blood Pressure 126/76 131/85 132/77 Pulse Oximetry 99 98 100 Intake/Output Intake/Output: Intake & Output 10/10/20 10/11/20 10/12/20 10/13/20 23:59 23:59 23:59 23:59 Intake Total 1000 2930 300 Output Total 900 900 Balance 1000 2030 -600 Meds/Results Medications: Active Medications Generic Name Dose Route Start Last Admin Trade Name Freq PRN Reason Stop Dose Admin Hydrocodone Bitart/Acetaminophen 1 tab 10/12/20 00:56 Hydrocodone/Acetaminophen (*Crx) 5-325 Mg Tablet PO Q6H PRN Pain Rated 4-6 Allopurinol 300 mg 10/12/20 08:00 10/13/20 08:38 Allopurinol 300 Mg Tablet PO 300 mg DAILY@0800 KETTY Administration Atorvastatin Calcium 20 mg 10/12/20 09:00 10/13/20 08:38 Atorvastatin 20 Mg Tablet PO 20 mg DAILY KETTY Administration Dextrose 12.5 gm 10/11/20 21:42 Dextrose 50% 25 Gm/50 Ml Syringe IV PUSH PRN PRN Hypoglycemia Protocol Glucagon 1 mg 10/11/20 21:42 Glucagon For Inj 1 Mg Vial IM PRN PRN Hypoglycemia Protocol Glucose 15 gm 10/11/20 21:42 Glucose Oral Gel 15 Gm Of Glucse In 37.5 Gm Tube PO PRN PRN Hypoglycemia Protocol Hydromorphone HCl 1 mg 10/11/20 21:42 10/12/20 16:25 Hydromorphone Hcl Inj (*Crx) 1 Mg/Ml Syr IV PUSH 1 mg Q4H PRN Administration Pain Rated 7-10 Dextrose 1,000 mls @ 100 mls/hr 10/11/20 21:42 Dextrose 5% 1,000 Ml IVPB PRN PRN Hypoglycemia Protocol Cefazolin Sodium 2 gm in 50 mls @ 100 mls/hr 10/13/20 11:13 Ancef 2 Gm/D5w 50 Ml IVPB 10/13/20 11:42 ONCE ONE Insulin Aspart 3 - 6 units 10/12/20 17:00 10/13/20 08:39 Insulin Aspart (*Bkc) 100 Units/Ml SUB-Q Not Given TIDWM [facility] Protocol Insulin Lispro Protam/Lispro Human 24 units 10/12/20 08:00 10/13/20 08:39 Insulin Npl/Insulin Lispro 75/25 100 Units/Ml Vial (*Bkc) SUB-Q Not Given BIDWM [facility] Ketorolac Tromethamine 30 mg 10/11/20 21:42 10/12/20 18:47 Ketorolac 30 Mg/Ml Vial (*Bkc) IV PUSH 10/16/20 21:43 30 mg Q6H PRN Administration Pain Rated 4-6 Ondansetron HCl 4 mg 10/11/20 21:42 Ondansetron Inj 4 Mg/2 Ml Vial IV PUSH Q4H PRN Nausea Tamsulosin HCl 0.4 mg 10/12/20 09:00 10/13/20 08:38 Tamsulosin Hcl 0.4 Mg Capsule PO 0.4 mg DAILY [facility] Administration Radiology Results: ITS Impressions Abdomen X-Ray 10/11/20 20:29 IMPRESSION: 1. Bilateral nephrolithiasis including steinstrasse with linear collection of multiple stones measuring up to 5 mm at the distalmost left ureter. Labs Labs: Laboratory Results - last 24 hr 10/12/20 10/12/20 10/12/20 06:17 11:56 18:00 POC Capillary Glucose 90 144 H H
--- NOTE | 2020-10-13 11:14 | WPDHPUPDATE1 ---
History and Physical Update Update Date/Time: 10/13/20 11:14 History and Physical has been reviewed, including an updated exam of the patient. There are NO changes in the patient's condition. Risks, benefits, and alternatives have been discussed and questions answered. Patient agrees to proceed with procedure. will proceed with cystoscopy, left retrograde pyelogram, left ureteroscopy with stone extraction, possible holmium laser and stent placement
[2020-10-13] MEDS: LACTATED RINGERS 1,000 ML 30 ML IV CONT (11:15)
--- NOTE | 2020-10-13 11:15 | PC.NURSE ---
To OR per CRISTINO linares na. Report given to RN.
--- NOTE | 2020-10-13 11:16 | WPDUROPN2 ---
Progress Note: A&P Assessment and Plan (1) Ureterolithiasis: Code(s): N20.1 - Calculus of ureter Status: Acute Assessment and Plan: Will plan for cystoscopy, left retrograde pyelogram, left ureteroscopy with stone extraction, possible holmium laser and stent placement Subjective Subjective Date/Time Seen: 10/13/20 11:16 Principal diagnosis: left ureteral and renal calculus Interval history: patient is then passed the Steinstrasse of stones in the left ureter. Will proceed with intervention today. Review of Systems Review of Systems: All systems reviewed & are unremarkable except as noted in HPI and below Exam Const: General: cooperative Resp: Effort & Inspection: normal respiratory effort Cardio: Rate: regular rate Objective Data Vital Signs Vital Signs: Vital Signs - 24 hr 10/12/20 14:00 10/12/20 22:00 10/13/20 06:00 Temperature 36.6 C 37.3 C 36.4 C Pulse Rate 100 76 70 Respiratory Rate 16 14 14 Blood Pressure 126/76 131/85 132/77 Pulse Oximetry 99 98 100 Intake/Output Intake/Output: Intake & Output 10/10/20 10/11/20 10/12/20 10/13/20 23:59 23:59 23:59 23:59 Intake Total 1000 2930 300 Output Total 900 900 Balance 1000 2030 -600 Meds/Results Medications: Active Medications Generic Name Dose Route Start Last Admin Trade Name Freq PRN Reason Stop Dose Admin Hydrocodone Bitart/Acetaminophen 1 tab 10/12/20 00:56 Hydrocodone/Acetaminophen (*Crx) 5-325 Mg Tablet PO Q6H PRN Pain Rated 4-6 Allopurinol 300 mg 10/12/20 08:00 10/13/20 08:38 Allopurinol 300 Mg Tablet PO 300 mg DAILY@0800 KETTY Administration Atorvastatin Calcium 20 mg 10/12/20 09:00 10/13/20 08:38 Atorvastatin 20 Mg Tablet PO 20 mg DAILY KETTY Administration Dextrose 12.5 gm 10/11/20 21:42 Dextrose 50% 25 Gm/50 Ml Syringe IV PUSH PRN PRN Hypoglycemia Protocol Glucagon 1 mg 10/11/20 21:42 Glucagon For Inj 1 Mg Vial IM PRN PRN Hypoglycemia Protocol Glucose 15 gm 10/11/20 21:42 Glucose Oral Gel 15 Gm Of Glucse In 37.5 Gm Tube PO PRN PRN Hypoglycemia Protocol Hydromorphone HCl 1 mg 10/11/20 21:42 10/12/20 16:25 Hydromorphone Hcl Inj (*Crx) 1 Mg/Ml Syr IV PUSH 1 mg Q4H PRN Administration Pain Rated 7-10 Dextrose 1,000 mls @ 100 mls/hr 10/11/20 21:42 Dextrose 5% 1,000 Ml IVPB PRN PRN Hypoglycemia Protocol Cefazolin Sodium 2 gm in 50 mls @ 100 mls/hr 10/13/20 11:13 Ancef 2 Gm/D5w 50 Ml IVPB 10/13/20 11:42 ONCE ONE Insulin Aspart 3 - 6 units 10/12/20 17:00 10/13/20 08:39 Insulin Aspart (*Bkc) 100 Units/Ml SUB-Q Not Given TIDWM [facility] Protocol Insulin Lispro Protam/Lispro Human 24 units 10/12/20 08:00 10/13/20 08:39 Insulin Npl/Insulin Lispro 75/25 100 Units/Ml Vial (*Bkc) SUB-Q Not Given BIDWM [facility] Ketorolac Tromethamine 30 mg 10/11/20 21:42 10/12/20 18:47 Ketorolac 30 Mg/Ml Vial (*Bkc) IV PUSH 10/16/20 21:43 30 mg Q6H PRN Administration Pain Rated 4-6 Ondansetron HCl 4 mg 10/11/20 21:42 Ondansetron Inj 4 Mg/2 Ml Vial IV PUSH Q4H PRN Nausea Tamsulosin HCl 0.4 mg 10/12/20 09:00 10/13/20 08:38 Tamsulosin Hcl 0.4 Mg Capsule PO 0.4 mg DAILY KETTY Administration Radiology Results: ITS Impressions Abdomen X-Ray 10/11/20 20:29 IMPRESSION: 1. Bilateral nephrolithiasis including steinstrasse with linear collection of multiple stones measuring up to 5 mm at the distalmost left ureter. Labs Labs: Laboratory Results - last 24 hr 10/12/20 10/12/20 10/12/20 06:17 11:56 18:00 POC Capillary Glucose 90 144 H Hemoglobin A1c 7.7 H 10/12/20 10/13/20 10/13/20 20:15 07:57 11:03 POC Capillary Glucose 227 H 172 H 147 H Hemoglobin A1c
[2020-10-13] MEDS: ceFAZolin 2 GM/D5W 50 ML 2 GM/50 ML BAG IVPB (11:37)
--- NOTE | 2020-10-13 12:19 | W.PM.PROC2 ---
Procedure Note - Detailed Date of Procedure 10/13/20 Pre-op Diagnosis Ureterolithiasis, intractable pain Post-op Diagnosis same Procedure Performed cystoscopy left retrograde pyelogram, left ureteroscopy with stone extraction, left ureteral stent placement 4.8 Panamanian contour Surgeon Ian Garcia MD Description of Procedure patient is taken to the operative suite and correctly identified. Once anesthesia was obtained was placed in dorsal lithotomy position and prepped and draped usual sterile fashion. Nineteen Panamanian scope was inserted into the bladder. There is no tumors. There is some small stones noted in the bladder which were evacuated. A guidewire was then placed in the left ureteral orifice. We dilated with an 8/10 dilator. Ureteral scope was inserted. The Steinstrasse that was noted on initial exam was now gone. He has passed those stones. We thus placed a access sheath in and placed a mini flexible scope up into the kidney. We noted approximately 20-30 small little stones in the left lower pole. We retrieved a significant amount of the stones. Some were just too small to grasp. Pyelogram was then performed to confirm placement of the stent. 4.8 Panamanian contour stent was then placed with the proximal end coiled in the renal pelvis and the distal in the bladder. Bladder was drained. 2% viscous lidocaine was inserted into the urethra the patient is taken recovery stable condition. He can be discharged home later today in follow-up in the office in a week's time for stent removal. Urine Output 900 Drains Yes Packing No Pathology yes Complications No immediate complications Condition stable Disposition PACU
[2020-10-13 13:03] LABS: Glucose Point of Care 137 mg/dl (65-105)
--- NOTE | 2020-10-13 13:13 | SUR.PHASEI ---
[id number] sbar faxed floor notified
--- NOTE | 2020-10-13 13:40 | PC.NURSE ---
Returned from OR per stretcher. Report received from RN.
[2020-10-13 14:50] LABS: Glucose Point of Care 130 mg/dl (65-105)
--- NOTE | 2020-10-13 17:00 | PM.DS ---
DS: Admitting Diagnosis Discharge Date 10/13/20 Admitting Diagnosis ureterolithiasis DS: Summary Hospital Course Hospital Course: Date of service 10/13/2020 Hospital Course: 35-YEAR-OLD man with a PMH significant for Gout; DM typ II who presented to the ED with intermittent worsening left flank pain. The pain started approximately 1 week prior. He underwent extracorporeal wave lithotripsy outpatient. He was also recently seen in the ED the night prior to admission and was dischraged with oral pain medication. He received no relief an returned her to [place]. CT of A/P showed several stones in the left distal ureter with hydronephrosis. He was admitted and Dr. Izquierdo was consulted. IVF fluids were initiated and supportive care provided with pain control. He underwent cystoscopy left retrograde pyelogram, left ureteroscopy with stone extraction, left ureteral stent placement 4.8 Somali contour. He tolerated the procedure well. He now tolerating his diet and pain denies any pain. He is stable for discharge and will follow up with urology outpatient for stent removal. Discharge Diagnosis (1) Hydronephrosis: Code(s): N13.30 - Unspecified hydronephrosis Status: Acute (2) Flank pain: Code(s): R10.9 - Unspecified abdominal pain Status: Acute (3) Ureterolithiasis: Code(s): N20.1 - Calculus of ureter Status: Acute Time Spent with Patient Time attestation: Total time spent providing and/or coordinating discharge services: Time spent: Greater than 30 minutes Exam Narrative: Const: General: no acute distress, alert and awake Orientation/consciousness: patient oriented x3 HENMT: Head: normocephalic and atraumatic Ears: hearing grossly normal bilaterally and external ears normal Face and sinus: face symmetric Mouth: Yes Normal oral and palatal mucosa present Eyes: EOM: EOMs intact bilaterally Neck: Neck: full ROM, trachea midline and no JVD Thyroid: thyroid normal Chest: Chest palpation & inspection: normal inspection of the chest Resp: Effort & Inspection: normal respiratory effort Auscultation: clear to auscultation bilaterally Cardio: Jugular venous distension: no JVD Rate: regular rate Rhythm: regular rhythm Heart sounds: S1 normal heart sound present and S2 normal heart sound present GI: Inspection: normal to inspection GI Palp: Yes Soft to palpation Percussion: Yes normal to percussion Auscultation: normal bowel sounds : General: Yes no CVA tenderness Back/Spine/Pelvis: Back: no CVA tenderness Skin: General skin exam: normal color Rashes: no rashes Neuro: General: patient oriented x3 and CN's II-XI intact bilaterally Cranial nerves: Yes Equal, round and reactive pupils present Speech: normal speech Psych: Appearance: grossly normal Affect: normal affect Judgement: Good judgement present (Psych) DS: Data Data Completed and Pending Completed studies during hospitalization: Pending at discharge 10/13/20 12:17 Surgical [PTH] Routine Discharge Plan Discharge Attending physician on discharge: Johnie Rice Consulting providers: Cleopatra Moreira ; Mickey Hernandez ; Cleopatra Edwards ; Ian Garcia ; Jamarcus Bates ; Stew Alves Discharging Clinician: Cleopatra Moreira Patient Disposition: Home, Self-Care Activity: no shower, no straining and as tolerated Diet: regular Discharge Instructions: Patient will need to call the office to schedule a stent removal next week with Dr. Garcia. [phone] Patient Instructions: Antibiotic Form, Cystoscopy (GEN) Stand Alone Forms: General Discharge Information Follow-up/Referrals: Johns,Dl Chamberlain MD [Primary Care Provider] - 2 Weeks Ian Garcia MD [Physician] - Discharge Medications: New sulfamethoxazole-trimethoprim [Bactrim DS] 800-160 mg tablet 1 tablet PO .qd Qty: 3 RF: 0 Continued tamsulosin 0.4 mg capsule 0.4 mg PO DAILY RF: 0 h
== END 2020-10-13 16:09 | disposition home or self-care (01) | DRG 661 ==
LOC: ANHED 21:59 → ANH3MEDSUR 22:25
PROVIDERS: Nurse Practitioner Adult Health; Urology; Admitting Provider Internal Medicine; Emergency Provider Emergency Medicine; PCP Internal Medicine; Visit Provider Internal Medicine
PROC: 0TC18ZZ Extirpation of Matter from Left Kidney, Via Natural or Artificial Opening Endoscopic (ICD-10-PCS; CPT 52352; principal; 2020-10-13 11:30)
DX: N13.2 Hydronephrosis with renal and ureteral calculous obstruction (principal); M10.9 Gout, unspecified; E11.9 Type 2 diabetes mellitus without complications; Z79.4 Long term (current) use of insulin
CPT/HCPCS: 36415; 74018; 74176; 74420; 80048; 80053; 81001; 82365; 82948; 83036; 83690; 85025; 88300; 93005; 96361; 96374; 96375; 99284; 99285; A9270; C1769; C1894; C2617; J0690; J1170; J1200; J1815; J1885; J2250; J2270; J2405; J2704; J3010; J7030; J7120; Q9966

== ENCOUNTER 2022-11-14 06:36 | Day surgery (SDC) | payer OTHER, SELFPAY ==
--- NOTE | 2022-11-14 06:58 | P.PNAN_ITS ---
Anes - Initial Pre Proc Eval Procedure: Operation Date: 11/14/22 08:30 Proposed Procedures p Esophagogastroduodenoscopy - Silvestre Foley MD s Diagnostic Colonoscopy - Silvestre Foley MD Date/Time: 11/14/22 06:58 Surgeon: Silvestre Foley MD Pre Op Diagnosis: Melena, RUQ Pain, Gerd w/o Esophagitis Patient Data Age: 37 Gender: M Height: 1.83 m Weight: 103.5 kg Allergies Allergy/AdvReac Type Severity Reaction Status Date / Time No Known Allergies Allergy Verified 11/14/22 07:35 Home Medications Medication Instructions Recorded Confirmed Type allopurinol 300 mg tablet 300 mg PO DAILY 10/09/20 11/14/22 History atorvastatin 20 mg tablet 20 mg PO DAILY 10/09/20 11/14/22 History empagliflozin 10 mg tablet 10 mg PO DAILY 10/09/20 11/14/22 History (Jardiance) glimepiride 2 mg tablet 2 mg PO BID 10/09/20 11/14/22 History insulin lispro protamine-lispro 24 unit subcut BID 10/09/20 11/14/22 History 100 unit/mL (75-25) subcutaneous pen metformin 1,000 mg tablet 1,000 mg PO BID 10/09/20 11/14/22 History tirzepatide 5 mg/0.5 mL 5 mg subcut WEEKLY 10/14/22 11/14/22 History subcutaneous pen injector (Mounjaro) Patient hx anesthesia problems: none Family hx anesthesia problems: none Results Review: All pre-operative results and documents have been reviewed as part of the pre- operative evaluation. [facility] Past Medical History Medical History (Updated 10/14/22 @ 12:36 by Misty Jorgensen APRN) Diabetes mellitus Diabetes type 2, controlled GERD (gastroesophageal reflux disease) Hematochezia Hyperlipidemia RUQ pain Family History Family History Father Diabetes mellitus Mother Hypertension Social History Social History Smoking status: Never smoker Alcohol intake: current Drinks per week: 1 Substance use: never Substance use type: does not use Living arrangements: with family Gender identity (if verbalized by the patient): Male Spiritual care concerns: No Anes - Eval Final PreProcedure Day of Procedure 11/14/22 06:58 Patient weight: obese Heart: regular rate and rhythm Lungs: clear to auscultation Airway: Mallampati scale class II Neurological: alert and oriented Last oral intake: >/= 8 hours ASA classification: III Emergent: no Anesthetic plan: proceed Anesthesia type and monitoring: general GIVS and standard monitoring Results Review: All pre-operative results and documents have been reviewed as part of the pre- operative evaluation. Informed Consent: The patient's anesthetic plan and its attendant risks and benefits were discussed with the patient/family/POA. Questions were solicited and answers provided to the satisfaction of the patient/family/POA.
[2022-11-14 07:38] VITALS: BP 121/83; PULSE 84; RESP 14; TEMP 36.9; O2SAT 98
[2022-11-14] MEDS: LACTATED RINGERS 1,000 ML 150 ML IV CONT (07:51)
--- NOTE | 2022-11-14 08:34 | WPDHPUPDATE1 ---
History and Physical Update Update Date/Time: 11/14/22 08:34 History and Physical has been reviewed, including an updated exam of the patient. There are NO changes in the patient's condition. Risks, benefits, and alternatives have been discussed and questions answered. Patient agrees to proceed with procedure.
[2022-11-14 09:08] VITALS: BP 108/74; PULSE 89; RESP 20; O2SAT 95
[2022-11-14 09:18] VITALS: BP 116/88; PULSE 81; RESP 20; O2SAT 100
[2022-11-14 09:28] VITALS: BP 113/83; PULSE 73; RESP 20; O2SAT 100
--- NOTE | 2022-11-14 12:34 | WPDANESPN ---
Anes - Prog Note Post-Op Date/Time: 11/14/22 12:34 Cardiovascular status: normal Respiratory status: normal Airway patency: baseline Mental status: baseline Post-Op hydration status: normal Vital Signs: Last Vital Signs Temp 36.9 C 11/14/22 07:38 Pulse 73 11/14/22 09:28 Resp 20 11/14/22 09:28 BP 113/83 11/14/22 09:28 Pulse Ox 100 11/14/22 09:28 O2 Del Method Room Air 11/14/22 09:28 Pain Score (VAS): 0 I/O: Intake & Output 11/13/22 11/14/22 11/14/22 23:59 07:59 15:59 Intake Total 600 Balance 600 Post-procedural complaints: none Patient Feedback: Patient satisfied with anesthetic care. Other Findings: Patient vital signs back to baseline. Patient denies nausea and vomiting. Patient's pain under control. Patient OK for discharge.
[2022-11-15 14:19] LABS: Glucose Point of Care 174 mg/dl (65-105)
== END 2022-11-14 09:36 | disposition home or self-care (01) ==
PROVIDERS: PCP Internal Medicine; Visit Provider Internal Medicine Gastroenterology
PROC: 0DJ08ZZ Inspection of Upper Intestinal Tract, Via Natural or Artificial Opening Endoscopic (ICD-10-PCS; CPT 43235; principal; 2022-11-14 08:30)
PROC: 0DJD8ZZ Inspection of Lower Intestinal Tract, Via Natural or Artificial Opening Endoscopic (ICD-10-PCS; CPT 45378; 2022-11-14 08:30)
DX: K21.9 Gastro-esophageal reflux disease without esophagitis (principal); K92.1 Melena; K64.8 Other hemorrhoids; K22.2 Esophageal obstruction; K21.00 Gastro-esophageal reflux disease with esophagitis, without bleeding; K29.70 Gastritis, unspecified, without bleeding; K29.80 Duodenitis without bleeding; K44.9 Diaphragmatic hernia without obstruction or gangrene
CPT/HCPCS: 45378; 43249; 43239

== ENCOUNTER 2022-11-14 08:00 | Outpatient (NON) | payer OTHER, SELFPAY | END 2022-11-14 08:01 | disposition home or self-care (01) | LOC: ANHLAB 11-15 09:16 | PROVIDERS: PCP Internal Medicine; Visit Provider Internal Medicine Gastroenterology | DX: K21.9 Gastro-esophageal reflux disease without esophagitis (principal) | CPT/HCPCS: 88305 ==

== ENCOUNTER → 2023-04-03 08:21 | Outpatient (CLI) | payer OTHER, SELFPAY ==
--- NOTE | ~2023-04-03 | MR_ITS ---
MRI of the lumbar spine Clinical History: Back pain Technique: Axial T2-weighted images, and sagittal T1-weighted, T2-weighted, and T2 fat-sat images wer e acquired. Following intravenous administration of 15 cc MultiHance gadolinium, T1-weighted fat-sat imaging was performed in the axial and sagittal planes. Findings: There is no fracture or sublocation of the lumbar spine. Vertebral bodies maintain normal h eight and alignment. No suspicious marrow signal abnormality seen. At L1-L2, there is no disc bulge or herniation. There is mild facet joint hypertrophy. No spinal lovely l stenosis or neural foraminal narrowing. At L2-L3, there is minimal disc bulge with mild facet arthropathy. No central canal stenosis or neura l foraminal narrowing. L3-L4, there is mild disc protrusion/bulge with mild to moderate facet arthropathy. No gabriela central canal stenosis. There is minimal bilateral neural foraminal narrowing. At L4-L5, there is disc bulge, most prominent at the left foraminal region, with advanced bilateral f acet arthropathy. There is mild to moderate left neural foraminal narrowing. Right neural foramen pre served. No central canal stenosis. At L5-S1, there is disc protrusion at the right paracentral to right foraminal region with moderate b ilateral facet arthropathy. There is moderate to advanced right neural foraminal narrowing as well as probable impingement of the descending right S1-S2 level nerve root. No left neural foraminal narrow ing. There is mild compression of the right side of the thecal sac. Paravertebral soft tissues are unremarkable. No abnormal post contrast enhancement identified. Impression: Degenerative spondylosis at L4-L5 and L5-S1, as detailed above. In particular, there is narrowing of the right L5-S1 level neural foramen and probable impingement of the descending right S1-S2 level ner ve root by right paracentral disc protrusion. Reviewed, dictated and finalized at location . HAZARD INSPECTOR Impression: Degenerative spondylosis at L4-L5 and L5-S1, as detailed above. In particular, there is narrowing of the right L5-S1 level neural foramen and probable impinge ment of the descending right S1-S2 level nerve root by right paracentral disc p rotrusion.
== END ==
PROVIDERS: PCP Neurological Surgery; Visit Provider Internal Medicine
DX: M43.06 Spondylolysis, lumbar region (principal); M47.817 Spondylosis without myelopathy or radiculopathy, lumbosacral region
CPT/HCPCS: 72158; A9577

== ENCOUNTER 2023-10-02 09:50 | Outpatient (CLI) | payer OTHER, SELFPAY ==
--- NOTE | ~2023-10-02 | US_ITS ---
Limited Abdominal Sonogram: Real-time sonographic imaging of the right upper quadrant was performed. Clinical History: Right upper quadrant pain Findings: The liver appears normal with no evidence of mass lesion or bile duct dilatation. Main por kwesi vein demonstrates normal direction of flow. The gallbladder is well distended, and appears normal with no evidence of gallstone or wall thickening. The common bile duct measures 5 mm. The visualize d pancreas, aorta, and IVC are unremarkable. Impression: No significant abnormality seen. Reviewed, dictated and finalized at location M. Impression: No significant abnormality seen.
== END 2023-10-02 09:51 ==
LOC: GOSHIMG 09:51
PROVIDERS: PCP Internal Medicine; Visit Provider Nurse Practitioner
DX: R10.11 Right upper quadrant pain (principal)
CPT/HCPCS: 76705

== ENCOUNTER 2023-11-10 07:43 | Outpatient (CLI) | payer OTHER, SELFPAY ==
--- NOTE | ~2023-11-10 | NM_ITS ---
EXAMINATION: NM hepatobiliary wo pharm DATE: 11/10/2023 11:46 CDT INDICATION: Right upper quadrant pain COMPARISON: Ultrasound dated 10/02/2023 TECHNIQUE: 4.9 mCi Tc-99m mebrofenin (Choletec) was administered intravenously. Scintigraphic images of the abdomen were obtained for one hour. At the 1 hour time point, the patient drank 8 oz Ensure, and imaging was continued for 60 minutes. Gallbladder ejection fraction was calculated by the technol ogist. FINDINGS: There is normal clearance of radiotracer from the blood pool. There is homogeneous tracer u ptake by the liver. Activity progresses to the bowel and gallbladder. The gallbladder ejection fract ion is 52%. Note that with this technique, normal GBEF >= 33%. IMPRESSION: 1. Normal hepatobiliary scan. Reviewed, dictated and finalized at location B.
== END 2023-11-10 07:44 | disposition home or self-care (01) ==
PROVIDERS: PCP Internal Medicine; Visit Provider Nurse Practitioner
DX: R10.11 Right upper quadrant pain (principal)
CPT/HCPCS: 78226; A9537

== ENCOUNTER 2024-02-06 08:33 | Outpatient (CLI) | payer OTHER, SELFPAY ==
--- NOTE | ~2024-02-06 | CT_ITS ---
EXAMINATION: CT abdomen pelvis w con DATE: 02/06/2024 09:19 INDICATION: Right upper quadrant abdominal pain TECHNIQUE: Computed tomography (CT) of the abdomen and pelvis was performed with 100 mL Omnipaque-350 intravenous contrast. Automated exposure control and iterative reconstruction technique were employe d. The dose-length product was 922.66 mGy-cm. COMPARISON: 10/10/2020 FINDINGS: Lung bases are clear. Heart size is normal. No pericardial or pleural effusion. Liver, gallbladder, s pleen, pancreas and bilateral adrenal glands are normal. Bilateral nonobstructing nephrolithiasis wit h 2 stones in the right kidney and 4 in the left kidney the largest measuring 5.5 mm at the upper alessandro e the right kidney and the remainder all measuring 2-3 mm. Mild left hydronephrosis with no evident o bstructing stone or mass at the transition point at the ureteropelvic junction. Bilateral ureters are normal. No right-sided hydronephrosis. Bowels are unremarkable with no wall thickening or obstructio n. The appendix is not visualized. No pericecal inflammatory change to suggest acute appendicitis. Bl adder is normal. Trace free fluid in the deep pelvis. No abscess or free intraperitoneal gas. No path ologically enlarged abdominal or pelvic lymphadenopathy. Moderate lower thoracic and mild lumbar spon dylosis. IMPRESSION: 1. Bilateral nonobstructing nephrolithiasis with mild left hydronephrosis without evident obstructing stone or mass at the transition point at the ureteropelvic junction. Reviewed, dictated and finalized at location B. USION ENGINEER IMPRESSION: 1. Bilateral nonobstructing nephrolithiasis with mild left hydronephrosis witho ut evident obstructing stone or mass at the transition point at the ureteropelv ic junction.
[2024-02-06 09:13] LABS: Estimated Glomerular Filt Rate > 60
== END 2024-02-06 08:34 | disposition home or self-care (01) ==
LOC: ANHIMG 08:34
PROVIDERS: PCP Internal Medicine; Visit Provider Nurse Practitioner
DX: N13.2 Hydronephrosis with renal and ureteral calculous obstruction (principal)
CPT/HCPCS: 74177; Q9967

== ENCOUNTER 2024-10-02 01:07 | Day surgery (SDC) | payer BC, SELFPAY ==
[2024-09-11 09:16] VITALS: BMI 31.4
--- OUTSIDE RECORDS SUMMARY | 2024-10-02 01:10 | XMS_ITS | Continuity of Care Document ---
Author Organization [facility] Address [address] [place] [address] Phone Care Team Providers Care Photo Checker Name Role Phone Norbert Armando WOO Unavailable Unavailable Procedures Procedure Date PT Re-evaluation Therapeutic Exercise Therapeutic Activities Neuromuscular Re-Ed Hot or Cold Pack Therapeutic Exercise Therapeutic Activities Neuromuscular Re-Ed Therapeutic Exercise Therapeutic Activities Neuromuscular Re-Ed Hot or Cold Pack Therapeutic Exercise Therapeutic Activities Neuromuscular Re-Ed Hot or Cold Pack Therapeutic Exercise Therapeutic Activities Neuromuscular Re-Ed Hot or Cold Pack Therapeutic Exercise Therapeutic Activities Neuromuscular Re-Ed Hot or Cold Pack Therapeutic Exercise Neuromuscular Re-Ed Manual Therapy Hot or Cold Pack PT Evaluation Moderate Complexity Therapeutic Exercise Neuromuscular Re-Ed Hot or Cold Pack Advance Directives Directive Yes / No Effective Date File Name No Information Encounters Encounter Description Practice Location Reason(s) For Visit Diagnoses Date Provider Providers Copied on Encounter [facility], [address], [place], [place], [id number], tel:[phone] Tl Herrera No Information 0 9 Stuppy Armando. [address] [place] [address], [facility] [address], [place], [facility], . tel:[phone] Referring Provider: Stew Krause, [address], [place], [address]. tel:[phone] [facility], [place], [place], [id number], tel:[phone] OFdaniele Herrera Calcific tendinitis of left shoulderImpingement syndrome of left shoulderAbnormal posture 8 9 Stuppy Armando. [address] [place] [address], [address], [address], . tel:[phone] Referring Provider: Stew Krause, [facility], [place], [address]. tel:[phone] [facility] [address], [place], [place], [id number], [place] tel:[phone] Tl Herrera Calcific tendinitis of left shoulderImpingement syndrome of left shoulderAbnormal posture 2 9 Luna Pippa. . Referring Provider: Stew Krause, [address], [place], [address]. tel:[phone] [facility], [place], [place], [id number], [place] tel:[phone] OFdaniele Herrera Calcific tendinitis of left shoulderImpingement syndrome of left shoulderAbnormal posture 9 Stuppy Armando. [address] [place] [address], [address], [place], [address], [place]. tel:[phone] Referring Provider: Stew Krause, [facility] [facility] [address], [place], [address]. tel:[phone] [facility], [place], [place], [id number], tel:[phone] [place] Calcific tendinitis of left shoulderImpingement syndrome of left shoulderAbnormal posture 9 Stuppy Armando. [address] [place] [address], [address], [place], [place], [facility], . tel:[phone] Referring Provider: Stew Krause, [facility] [facility] [address], [place], [address]. tel:[phone] [facility], [address], [place], [place], [address], tel:[phone] [place] Calcific tendinitis of left shoulderImpingement syndrome of left shoulderAbnormal posture 9 Stuppy Armando. [address] [place] [address], [address], [place], [place], [facility], . tel:[phone] Referring Provider: Stew Krause, [facility] [facility] [address], [place], [address]. tel:[phone] [facility] [address], [place], [place], [address], [place] tel:[phone] [place] Calcific tendinitis of left shoulderImpingement syndrome of left shoulderAbnormal posture 9 Stuppy Armando. [address] [place] [address], [address], [place], [place], [facility], [place]. tel:[phone] Referring Provider: Stew Krause, [facility] [facility] [address], [place], [address]. tel:[phone] [facility] [address], [place], [place], [address], [place] tel:[phone] [place] Calcific tendinitis of left shoulderImpingement syndrome of left shoulderAbnormal posture 9 Stuppy Armando. [address] [place] [address], [address], [place], [place], [facility], [place]. tel:[phone] Referring Provider: Stew Krause, [address], [place], [address]. tel:[phone] Family History Family Member Type Diagnosis Age At Onset No Information Payers Payer name Insurance type Covered green party ID Sariah alcocer(s) [facility] [id number] Social History Type Description Quantity Date Captured Comments Alcohol Use Details Unknown Caffeine Use Details Unknown Tobacco Use Status No Information Smoking Status No Information Non-Smoking Tobacco Use Details : No Details Available : No Details Available Sex Male Chief Complaint And Reason For Visit No Information Reason For Referral Reason For Referral No Information Plan Of Treatment Date Type Action Status Referral Ordered: PCP timeframe: 1 week. (related to Overweight) ordered Referral Ordered: PCP timeframe: 1 week. (related to Overweight) ordered History Of Present Illness Encounter Date Complaint History Of Prese nt Illness No Information Functional Status Date Functional Assessmen t Pain Score 0/10 Instructions Date Instruction Additional Infor mation No Information Assessments Type Assessment Date No Information Patient Care Teams Name Effective Dates (start - stop) Status Members No Information
--- OUTSIDE RECORDS SUMMARY | 2024-10-02 01:10 | XMS_ITS | Continuity of Care Document ---
Author Organization [facility] Address [address] [place] [address] Phone Care Team Providers Care Cable Installer Repairer Helper Name Role Phone Mick BARON, [place] Unavailable Unavailable Procedures Procedure Date EMERGENCY DEPT VISIT Advance Directives Directive Yes / No Effective Date File Name No Information Encounters Encounter Description Practice Location Reason(s) For Visit Diagnoses Date Provider Providers Copied on Encounter EMERGENCY DEPT VISIT [facility], [address], [place], [address], [place] tel:[phone] [facility] Spondylosis w/o myelopathy or radiculopathy, lumbar regionOther intervertebral disc degeneration, lumbosacral region with discogenic back pain and lower extremity painOsteophyte, vertebraeCalculus of kidneyOther chronic pain 5 Mick BARON [place]. [address] [place], [id number] , [place]. 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
--- OUTSIDE RECORDS SUMMARY | 2024-10-02 01:10 | XMS_ITS | Encounter Summary ---
Author Organization [facility] Address [address] [place] [address] Care Team Providers Care Invasive Manager Name Role Phone Dl Johns MD Primary Care Provider Encounter Details Date Type Department Care Team (Latest Contact Info) Description 09/03/2024 Results Follow-Up [facility] [address] [place] [id number] [place] [address] [place] [address] Comprehensive metabolic panel, Lipid panel, Albumin Creatinine Ratio, Urine Social History Tobacco Use Types Packs/Day Years Used Date Smoking Tobacco: Never Smokeless Tobacco: Never Alcohol Use Standard Drinks/Week Comments Yes 0 (1 standard drink = 0.6 oz pur e alcohol) AUDIT-C Answer Date Recorded Q1: How often do you have a drink containing alcohol? Never 04/12/2024 Q2: How many drinks containi ng alcohol do you have on a typical day when you are drinking? Patient does not drink Q3: How often do you have si x or more drinks on one occasion? Never 04/12/2024 PHQ-2 Answer Date Recorded PHQ-2 Total Score (If total score is 3 or more points, staff should administer the PHQ-9) 0 04/12/2024 Sex and Gender Information Value Date Recorded Sex Assigned at Not on file Legal Sex Male 11:20 AM INCIDENT RESPONSE LEAD Gender Identity Not on file Sexual Orientation Straight 04/12/2024 3: 24 PM INCIDENT RESPONSE LEAD documented as of this encounter Plan of Treatment Not on file documented as of this encounter Visit Diagnoses Not on filedocumented in this encounter Care Teams Invasive Manager Relationship Specialty Start Date End Date Dl Johns MD PCP - General 06/24/16 documented as of this encounter
--- OUTSIDE RECORDS SUMMARY | 2024-10-02 01:10 | XMS_ITS | Clinical Summary ---
Author Organization [facility] Address [address] [place] [address] Care Team Providers Care Breakfast And Room Attendant Name Role Phone Unavailable Primary Care Provider Unavailabl e Source Comments [facility],non-owned Affiliates and Associated Physician Practices is amultiple site organization consisting of ambulatory clinics and hospital sitesin [place] and [place]. This disclosure is being madepursuant to the Care Everywhere program and may not contain all information available regarding this patient. Last updated 17.[facility] [employer] Allergies No known active allergies Medications * Be aware that medications may not be up to date on this document. Alwaysverify current medications with the patient. diclofenac sodium EC (VOLTAREN) 75 MG tablet Take 1 Tab by mouth 3 times daily. 90 Tab 5 4 Active metFORMIN (GLUCOPHAGE) 1000 MG tablet Take 1,000 mg by mouth 2 times daily. Active glimepiride (AMARYL) 2 MG tablet Take 2 mg by mouth 2 times daily. Active atorvastatin (LIPITOR) 20 MG tablet Take 20 mg by mouth at bedtime. Active Insulin Lispro Prot & Lispro (HUMALOG MIX 75/25 KWIKPEN SC) Inject 20 Units subcutaneously 2 times daily. Active allopurinol (ZYLOPRIM) 300 MG tablet Take 300 mg by mouth once daily. 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 Not on file Not on file Last Filed Vital Signs Vital Sign Reading Time Taken Comments Blood Pressure - - Pulse - - Temperature - - Respiratory Rate - - Oxygen Saturation - - Inhaled Oxygen Concentration - - Weight 120.2 kg (265 lb) 02/05/2014 7:56 AM INFANTRY WEAPONS OFFICER Height 182.9 cm (6') 02/05/2014 7:56 AM INFANTRY WEAPONS OFFICER Body Mass Index 35.94 02/05/2014 7:56 AM INFANTRY WEAPONS OFFICER Plan of Treatment Health Maintenance Due Date Last Done Comments HIV SCREENING 1999 HEPATITIS C SCREENING 04/24/2002 DTAP/TDAP/TD VACCINES (1 - Tdap) 2003 HEPATITIS B VACCINE (1 of 3 - 19+ 3-dose series) 2003 COVID-19 VACCINE (1 - 2023-2 5 season) 2023 DEPRESSION SCREENING 03/27/2024 INFLUENZA VACCINE (Season Ended) 2024 ZOSTER VACCINE (1 of 2) 2034 HIB VACCINE Aged Out No longer eligi ble based on patient's age to complete this topic HPV VACCINE Aged Out No longer eligi ble based on patient's age to complete this topic MENINGOCOCCAL (Group B) VACC INE SHARED DECISION-MAKING Aged Out No longer eligibl e based on patient's age to complete this topic MENINGOCOCCAL GROUPS A/C/Y/W VACCINE Aged Out No longer eligible b ased on patient's age to complete this topic PNEUMOCOCCAL VACCINE Aged Out No long er eligible based on patient's age to complete this topic Insurance [facility]
--- OUTSIDE RECORDS SUMMARY | 2024-10-02 01:10 | XMS_ITS | Data Portability ---
Author Organization [place] [facility], Main Office Address [address] [place] [address] Assessment No assessment recorded. Plan of Treatment Reminders Order Date Submit Date Provider Last Modified By Organization Details Last Modified Time Details Appointments None recorded. Lab lipid panel, serum 2024 025 [email or web address] [facility], [address] , [place], [address], 5 08:24:51 CMP, serum or plasma 2024 025 [id number] [facility], [address] , [place], [address], 5 08:24:51 uric acid, serum or plasma 2023 024 [place] [facility], [address] , [place], [address], 4 02:59:48 magnesium, serum or plasma 2023 024 [place] [facility], [address] , [place], [address], 4 02:59:47 vitamin B12, serum 2023 024 [place] [facility], [address] , [place], [address], 4 02:59:51 HbA1c (hemoglobin A1c), blood 2023 024 [place] [facility], [address] , [place], [address], 4 02:59:54 microalbumi n, urine 2023 024 [place] [facility], [address], [place], [address], 4 02:59:50 lipid panel, serum 2023 024 [place] [facility], [address], [place], [address], 4 02:59:45 CMP, serum or plasma 2023 024 [place] [facility], [address], [place], [address], 4 02:59:49 TSH, serum or plasma 2023 024 [place] [facility], [address], [place], [address], 4 02:59:53 T4, free, serum 2023 024 [place] [facility], [address], [place], [address], 4 02:59:52 uric acid, serum or plasma 2023 024 [id number] [facility], [address], [place], [address], 4 10:42:28 vitamin B12, serum 2023 024 [facility], [address], [place], [address], 4 10:42:29 magnesium, serum or plasma 2023 024 [facility], [address], [place], [address], 4 10:42:29 HbA1c (hemoglobin A1c), blood 2023 024 [id number] [facility], [address] , [place], [address], 4 10:42:28 lipid panel, serum 2023 024 [id number] [facility], [address], [place], [address], 4 10:42:28 CMP, serum or plasma 2023 024 [id number] [facility], [address], [place], [address], 4 10:42:28 uric acid, serum or plasma 2022 023 [id number] [facility], [address] [facility], [place], [address], 3 12:04:56 CMP, serum or plasma 2022 023 [id number] [facility], [address] [facility], [facility], [place], [address], 3 12:04:55 lipid panel, serum 2022 023 [id number] [facility], [address] [facility], [facility], [place], [address], 3 12:04:55 TSH, serum or plasma 2022 023 [id number] [facility], [address] [facility], [facility], [place], [address], 3 12:04:55 T4, free, serum 2022 023 [id number] [facility], [address] [facility], [facility], [place], [address], 3 12:04:55 Referral None recorded. Procedures None recorded. Surgeries None recorded. Imaging None recorded. Medication Orders methylpredn isolone 4 mg tablets in a dose pack [address] [facility] #[id number], [address], [place], [address], 12:27:52 Patient TargetsNo targets recorded. Patient Instructions Encounter Date Encounter Id Patient Instructions Last Modified By Organization Details Last Modified Time 01/25/2023 [id number] [facility] HAIC: 7.4 Calculated MB mg%Hyperlipidemia- type 2 diabetes-GERD clinically stable. Will check blood work in form of CMP, lipid and thyroid. New on current Rx follow-up in six months.FDA recommendations of a influenza, RSV, COVID, pneumococcal immunizations strongly advised. Portions of the record may have been created with voice recognition software. Occasional wrong-word or s ound-a-like substitutions may have occurred due to the inherent limitations of voice recognition software. Read the chart carefully and recognize, using context, where substitutions have occurred. Next Appt: 6 Months Approximate Date: 07/24/2023 [email or web address] Not available 01/25/2023 17:14:03 07/26/2023 [id number] Follow-up hyperlipidemia, gout, type 2 diabetes, GERD as well as obesity class one all clinically stable. Will check blood work consisting of CBC, CMP, lipid, hemoglobin A1c, B12 and magnesium level. Continue on current Rx follow-up in six months. Next Appointment: 6 Months Approximate Date: 01/22/2024 Portions of the record may have been created with voice recognition software. Occasional wrong-word or s ound-a-like substitutions may have occurred due to the inherent limitations of voice recognition software. Read the chart carefully and recognize, using context, where substitutions have occurred. [email or web address] Not available 07/26/2023 17:07:26 01/24/2024 [id number] Follow-up for hyperlipidemia, type 2 diabetes, GERD, gout will continue with current medication. Check blood work consisting of CBC, CMP, lipid, thyroid, hemoglobin A1c and microalbumin. Continue on current Rx follow-up in six months Follow Up: 6 Months Approximate Date: 07/22/2024 Portions of the record may have been created with voice recognition software. Occasional wrong-word or s ound-a-like substitutions may have occurred due to the inherent limitations of voice recognition software. Read the chart carefully and recognize, using context, where substitutions have occurred. [email or web address] Not available 01/24/2024 17:11:46 07/24/2024 [id number] Follow-up essential hypertension, hyperlipidemia, type 2 diabetes insulin requiring and GERD all clinically stable. Will check blood work consisting of a lipid panel. Does not need the metabolic panels for the hemoglobin A1c pending those results from the clinical social worker. He is not due for a colonoscopy and/or prostate examination. Continue on current Rx follow-up in six months Follow Up: 6 Months Approximate Date: 01/20/2025 Portions of record are template driven. When necessary additional context will be provided. Additionally some portions have been created with voice recognition software. Occasional wrong-word or s ound-a-like substitutions may have occurred due to the inherent limitations of voice recognition software. Read the chart carefully and recognize, using context, where substitutions may have occurred. Created: Dl Johns M.D. 07.24.2024 04:49 PM [email or web address] Not available 07/24/2024 17:49:38 08/20/2024 [id number] Lumbar radiculopathy. Plan to give a trial of a Medrol Dosepak. Keep Appointment: Mon 04:00 PM [place] Portions of record are template driven. When necessary additional context will be provided. Additionally some portions have been created with voice recognition software. Occasional wrong-word or s ound-a-like substitutions may have occurred due to the inherent limitations of voice recognition software. Read the chart carefully and recognize, using context, where substitutions may have occurred. Created: Dl Johns M.D. 08.20.2024 11:27 AM [email or web address] Not available 08/20/2024 12:27:47 Reason for Referral None Reported. Results Created Date Observation Date Name Description Value Unit Range Abnormal Flag Note LastModifiedBy Organization Detail LastModifiedTime 02/04/2002/04/2023 LIPID PANEL , STAND ZEYAD cholesterol, total 134 mg/dL <200 normal Not Available [facility] [address] [place], [address], 02/04/2023 04:51:00 02/04/20 23 02/04/2023 LIPID PANEL , STAND ZEYAD HDL cholesterol 38 mg/dL > or = 40 low Not Available [facility] [address] [place], [address], 02/04/2023 04:51:00 02/04/20 23 02/04/2023 LIPID PANEL , STAND ZEYAD triglyceride s 92 mg/dL <150 normal Not Available [facility] [address] [place], [address], 02/04/2023 04:51:00 02/04/20 23 02/04/2023 LIPID PANEL , STAND ZEYAD LDL-choleste rol 78 mg/dL _(lesli c) normal Refer ence range : <100 Zandra able range <100 mg/dL for prima ry preve ntion ; <70 mg/dL for patie nts with CHD or diabe tic patie nts with > or = 2 CHD risk facto rs. LDL-C is now calcu lated using the Sharla n-Hop kins calcu roslyn n, which is a valid ated novel hemanto guicho santosi zion duran r accur acy than the Fried fatemeh equat ion in the estim ation of LDL-C . Sharla vaughn SS et al. SARA. 2013; 310(1 9): 2061- 2068 (http ://ed ucati on.Qu shannonVital [employer]. com/f aq/FA Q164) Not Available [facility] [address] [facility] , [place], [address], 02/04/2023 04:51:00 02/04/20 23 02/04/2023 LIPID PANEL , STAND ZEYAD chol/HDLC ratio 3.5 (calc ) <5.0 normal Not Available [facility] [address] [place], [address], 02/04/2023 04:51:00 02/04/20 23 02/04/2023 LIPID PANEL , STAND ZEYAD non HDL cholesterol 96 mg/dL _(lesli c) <130 normal For patie nts with diabe lilliana plus 1 major ASCVD risk facto r, treat ing to a non-H DL-C goal of <100 mg/dL (LDL- C of <70 mg/dL ) is consi dered a thera peuti c optio n. Not Available [facility] [address] [place], [address], 02/04/2023 04:51:00 02/04/20 23 02/04/2023 URIC ACID uric acid 3.0 mg/dL 4.0-8. 0 low Thera peuti c targe t for gout patie nts: <6.0 mg/dL Not Available [address] [address] [place], [address], 02/04/2023 04:51:01 02/04/20 23 02/04/2023 COMPR EHENS NORY METAB OLIC PANEL glucose 141 mg/dL 65-99 high Fasti ng refer ence inter brendan For someo ne witho ut known diabe lilliana, a gluco se value >125 mg/dL indic ates that they may have diabe lilliana and this shoul d be confi rmed with a follo w-up test. Not Available [address] [address] [address] , [place], [address], 02/04/2023 04:51:02 02/04/20 23 02/04/2023 COMPR EHENS NORY METAB OLIC PANEL urea nitrogen (BUN) 12 mg/dL 7-25 normal Not Available [address] [address] [place], [address], 02/04/2023 04:51:02 02/04/20 23 02/04/2023 COMPR EHENS NORY METAB OLIC PANEL creatinine 0.78 mg/dL 0.60-1 .26 normal Not Available [facility] [address] [address] [place], [address], 02/04/2023 04:51:02 02/04/20 23 02/04/2023 COMPR EHENS NORY METAB OLIC PANEL eGFR 117 mL/mi n/1.7 3m2 > or = 60 normal Not Available [address] [address] [place], [address], 02/04/2023 04:51:02 02/04/20 23 02/04/2023 COMPR EHENS NORY METAB OLIC PANEL BUN/creatini ne ratio SEE NOTE: (calc ) 6-22 Not Repor fabiana: BUN and Creat inine are withi n refer ence range . Not Available [address] [address] [place], [address], 02/04/2023 04:51:02 02/04/20 23 02/04/2023 COMPR EHENS NORY METAB OLIC PANEL sodium 141 mmol/ L 135-14 6 normal Not Available [address] [address] [place], [address], 02/04/2023 04:51:02 02/04/20 23 02/04/2023 COMPR EHENS NORY METAB OLIC PANEL potassium 4.1 mmol/ L 3.5-5. 3 normal Not Available [address] [address] [place], [address], 02/04/2023 04:51:02 02/04/20 23 02/04/2023 COMPR EHENS NORY METAB OLIC PANEL chloride 103 mmol/ L 98-110 normal Not Available [address], [address], 02/04/2023 04:51:02 02/04/20 23 02/04/2023 COMPR EHENS NORY METAB OLIC PANEL carbon dioxide 30 mmol/ L 20-32 normal Not Available [address], [address], 02/04/2023 04:51:02 02/04/20 23 02/04/2023 COMPR EHENS NORY METAB OLIC PANEL calcium 9.1 mg/dL 8.6-10 .3 normal Not Available [address] [place], [address], 02/04/2023 04:51:02 02/04/20 23 02/04/2023 COMPR EHENS NOYR METAB OLIC PANEL protein, total 6.8 g/dL 6.1-8. 1 normal Not Available [address], [address], 02/04/2023 04:51:02 02/04/20 23 02/04/2023 COMPR EHENS NORY METAB OLIC PANEL albumin 4.2 g/dL 3.6-5. 1 normal Not Available [address], [address], 02/04/2023 04:51:02 02/04/20 23 02/04/2023 COMPR EHENS NORY METAB OLIC PANEL globulin 2.6 g/dL_ (calc ) 1.9-3. 7 normal Not Available [address], [address], 02/04/2023 04:51:02 02/04/20 23 02/04/2023 COMPR EHENS NORY METAB OLIC PANEL albumin/glob ulin ratio 1.6 (calc ) 1.0-2. 5 normal Not Available [address], [address], 02/04/2023 04:51:02 02/04/20 23 02/04/2023 COMPR EHENS NORY METAB OLIC PANEL bilirubin, total 0.4 mg/dL 0.2-1. 2 normal Not Available [address], [address], 02/04/2023 04:51:02 02/04/20 23 02/04/2023 COMPR EHENS NORY METAB OLIC PANEL alkaline phosphatase 54 U/L 36-130 normal Not Available [facility] [address], [address], 02/04/2023 04:51:02 02/04/20 23 02/04/2023 COMPR EHENS NORY METAB OLIC PANEL AST 14 U/L 10-40 normal Not Available [address], [address], 02/04/2023 04:51:02 02/04/20 23 02/04/2023 COMPR EHENS NORY METAB OLIC PANEL ALT 16 U/L 9-46 normal Not Available [address], [address], 02/04/2023 04:51:02 02/04/20 23 02/04/2023 T4, FREE T4, free 1.4 NG/dL 0.8-1. 8 normal Not Available [address], [address], 02/04/2023 04:51:04 02/04/20 23 02/04/2023 TSH TSH 0.92 mIU/L 0.40-4 .50 normal Not Available [address], [address], 02/04/2023 04:51:05 08/05/19 24 08/08/2023 LIPID PANEL , STAND ZEYAD cholesterol, total 137 mg/dL <200 normal Not Available [address], [address], 08/08/2023 03:12:00 08/05/19 24 08/08/2023 LIPID PANEL , STAND ZEYAD HDL cholesterol 38 mg/dL > or = 40 low Not Available [address], [address], 08/08/2023 03:12:00 08/05/19 24 08/08/2023 LIPID PANEL , STAND ZEYAD triglyceride s 81 mg/dL <150 normal Not Available [address], [address], 08/08/2023 03:12:00 08/05/19 24 08/08/2023 LIPID PANEL , STAND ZEYAD LDL-choleste rol 83 mg/dL _(lesli c) normal Refer ence range : <100 Zandra able range <100 mg/dL for prima ry preve ntion ; <70 mg/dL for patie nts with CHD or diabe tic patie nts with > or = 2 CHD risk facto rs. LDL-C is now calcu lated using the Sharla n-Hop kins calcu roslyn n, which is a valid ated novel metho d provi ding duran r accur acy than the Fried fatemeh equat ion in the estim ation of LDL-C . Sharla vaughn SS et al. SARA. 2013; 310(1 9): 2061- 2068 (http ://ed ucati on.Qu estDi [employer]. com/f aq/FA Q164) Not Available [facility] [address] [place] [address] [facility] [place], [address], 08/08/2023 03:12:00 08/05/19 24 08/08/2023 LIPID PANEL , STAND ZEYAD chol/HDLC ratio 3.6 (calc ) <5.0 normal Not Available [facility] [address], [address], 08/08/2023 03:12:00 08/05/19 24 08/08/2023 LIPID PANEL , STAND ZEYAD non HDL cholesterol 99 mg/dL _(lesli c) <130 normal For patie nts with diabe lilliana plus 1 major ASCVD risk facto r, treat ing to a non-H DL-C goal of <100 mg/dL (LDL- C of <70 mg/dL ) is consi dered a thera peuti c optio n. Not Available [facility] [address] [place], [address], 08/08/2023 03:12:00 08/05/19 24 08/08/2023 MAGNE SIUM magnesium 2.0 mg/dL 1.5-2. 5 normal Not Available [facility] [address] [place] [address] [place], [address], 08/08/2023 03:12:01 08/05/19 24 08/08/2023 URIC ACID uric acid 3.4 mg/dL 4.0-8. 0 low Thera peuti c targe t for gout patie nts: <6.0 mg/dL Not Available [address], [address], 08/08/2023 03:12:02 08/05/19 24 08/08/2023 COMPR EHENS NORY METAB OLIC PANEL glucose 138 mg/dL 65-99 high Fasti ng refer ence inter brendan For someo ne witho ut known diabe lilliana, a gluco se value >125 mg/dL indic ates that they may have diabe lilliana and this shoul d be confi rmed with a follo w-up test. Not Available [address], [address], 08/08/2023 03:12:03 08/05/19 24 08/08/2023 COMPR EHENS NORY METAB OLIC PANEL urea nitrogen (BUN) 16 mg/dL 7-25 normal Not Available [address], [address], 08/08/2023 03:12:03 08/05/19 24 08/08/2023 COMPR EHENS NORY METAB OLIC PANEL creatinine 0.81 mg/dL 0.60-1 .26 normal Not Available [address], [address], 08/08/2023 03:12:03 08/05/19 24 08/08/2023 COMPR EHENS NORY METAB OLIC PANEL eGFR 115 mL/mi n/1.7 3m2 > or = 60 normal Not Available [address], [address], 08/08/2023 03:12:03 08/05/19 24 08/08/2023 COMPR EHENS NORY METAB OLIC PANEL BUN/creatini ne ratio SEE NOTE: (calc ) 6-22 Not Repor fabiana: BUN and Creat inine are withi n refer ence range . Not Available [facility] [address] [place], [address], 08/08/2023 03:12:03 08/05/19 24 08/08/2023 COMPR EHENS NORY METAB OLIC PANEL sodium 139 mmol/ L 135-14 6 normal Not Available [address], [address], 08/08/2023 03:12:03 08/05/19 24 08/08/2023 COMPR EHENS NORY METAB OLIC PANEL potassium 4.3 mmol/ L 3.5-5. 3 normal Not Available [address], [address], 08/08/2023 03:12:03 08/05/19 24 08/08/2023 COMPR EHENS NORY METAB OLIC PANEL chloride 103 mmol/ L 98-110 normal Not Available [address], [address], 08/08/2023 03:12:03 08/05/19 24 08/08/2023 COMPR EHENS NORY METAB OLIC PANEL carbon dioxide 28 mmol/ L 20-32 normal Not Available [address], [address], 08/08/2023 03:12:03 08/05/19 24 08/08/2023 COMPR EHENS NORY METAB OLIC PANEL calcium 9.3 mg/dL 8.6-10 .3 normal Not Available [address], [address], 08/08/2023 03:12:03 08/05/19 24 08/08/2023 COMPR EHENS NORY METAB OLIC PANEL protein, total 7.1 g/dL 6.1-8. 1 normal Not Available [address], [address], 08/08/2023 03:12:03 08/05/19 24 08/08/2023 COMPR EHENS NORY METAB OLIC PANEL albumin 4.4 g/dL 3.6-5. 1 normal Not Available [address], [address], 08/08/2023 03:12:03 08/05/19 24 08/08/2023 COMPR EHENS NORY METAB OLIC PANEL globulin 2.7 g/dL_ (calc ) 1.9-3. 7 normal Not Available [address], [address], 08/08/2023 03:12:03 08/05/19 24 08/08/2023 COMPR EHENS NORY METAB OLIC PANEL albumin/glob ulin ratio 1.6 (calc ) 1.0-2. 5 normal Not Available [address], [address], 08/08/2023 03:12:03 08/05/19 24 08/08/2023 COMPR EHENS NORY METAB OLIC PANEL bilirubin, total 0.5 mg/dL 0.2-1. 2 normal Not Available [address], [address], 08/08/2023 03:12:03 08/05/19 24 08/08/2023 COMPR EHENS NORY METAB OLIC PANEL alkaline phosphatase 57 U/L 36-130 normal Not Available [address], [address], 08/08/2023 03:12:03 08/05/19 24 08/08/2023 COMPR EHENS NORY METAB OLIC PANEL AST 29 U/L 10-40 normal Not Available [address], [address], 08/08/2023 03:12:03 08/05/19 24 08/08/2023 COMPR EHENS NORY METAB OLIC PANEL ALT 21 U/L 9-46 normal Not Available [address], [address], 08/08/2023 03:12:03 08/05/19 24 08/08/2023 VITAM IN B12 vitamin B12 368 pg/mL 200-11 00 normal Pleas e Note: Altho ugh the refer ence range for vitam in B12 is 200-1 100 pg/mL , it has been repor fabiana that betwe en 5 and 10% of patie nts with value s betwe en 200 and 400 pg/mL may exper ience neuro psych iatri c and hemat ologi c abnor malit ies due to occul t B12 defic iency ; less than 1% of patie nts with value s above 400 pg/mL will have sympt oms. Not Available [facility] [address] [address], [place], [address], 08/08/2023 03:12:04 08/05/19 24 08/08/2023 HEMOG LOBIN A1C hemoglobin A1C 7.5 %_of_ total _HGB <5.7 high For someo ne witho ut known diabe lilliana, a hemog lobin A1c value of 6.5% or great er indic ates that they may have diabe lilliana and this shoul d be confi rmed with a follo w-up test. For someo ne with known diabe lilliana, a value <7% indic ates that their diabe lilliana is well contr olled and a value great er than or equal to 7% indic ates subop timal contr ol. A1c targe ts shoul d be indiv idual ized based on durat ion of diabe lilliana, age, comor bid condi tions , and other consi derat ions. Curre ntly, no conse nsus exist s regar ding use of hemog lobin A1c for diagn osis of diabe lilliana for child nav. This test was perfo rmed on the Inder radha c503 platf orm. Effec tive , lazaro flores in test platf orms from the [facility] tect to the Inder radha c503 may have shift ed HbA1c resul ts emily red to histo rical resul ts. Based on labor atory valid ation testi ng condu cted at [facility] , the Inder platf orm relat nory to the [facility]bot t platf orm had an avera ge incre ase in HbA1c value of < or = 0.3%. This diffe rence is withi n accep fabiana varia bilit y estab lishe d by the Myriam prabhakar Glyco hemog lobin Stand ardiz ation Progr am. Note that not all indiv idual s will have had a shift in their resul ts and direc t emily rison s betwe en histo rical and curre nt resul ts for testi ng condu cted on diffe rent platf orms is not recom meggan d. Not Available [facility] [address] [place], [address], 08/08/2023 03:12:05 01/26/20 24 01/27/2024 LIPID PANEL , STAND ZEYAD cholesterol, total 129 mg/dL <200 normal Not Available [facility] [address], [address], 01/27/2024 02:59:45 01/26/20 24 01/27/2024 LIPID PANEL , STAND ZEYAD HDL cholesterol 39 mg/dL > or = 40 low Not Available [facility] [address], [address], 01/27/2024 02:59:45 01/26/20 24 01/27/2024 LIPID PANEL , STAND ZEYAD triglyceride s 93 mg/dL <150 normal Not Available [facility] [address], [address], 01/27/2024 02:59:45 01/26/2001/27/2024 LIPID PANEL , STAND ZEYAD LDL-choleste rol 72 mg/dL _(lesli c) normal Refer ence range : <100 Zandra able range <100 mg/dL for prima ry preve ntion ; <70 mg/dL for patie nts with CHD or diabe tic patie nts with > or = 2 CHD risk facto rs. LDL-C is now calcu lated using the Sharla n-[facility] kins sarthak mcgowan n, which is a valid ated novel metho d daniellei zion garland than the Fried fatemeh equat ion in the estim ation of LDL-C . Sharla vaughn SS et al. SARA. 2013; 310(1 9): 2061- 2068 (http ://ed ucati on.[employer]. [employer]/f aq/FA Q164) Not Available [facility] [address] [address] [place], [address], 01/27/2024 02:59:45 01/26/20 24 01/27/2024 LIPID PANEL , STAND ZEYAD chol/HDLC ratio 3.3 (calc ) <5.0 normal Not Available [facility] [address] [address] [address], [place], [address], 01/27/2024 02:59:45 01/26/20 24 01/27/2024 LIPID PANEL , STAND ZEYAD non HDL cholesterol 90 mg/dL _(lesli c) <130 normal For patie nts with diabe lilliana plus 1 major ASCVD risk facto r, treat ing to a non-H DL-C goal of <100 mg/dL (LDL- C of <70 mg/dL ) is belén willis thera peuti c optio n. Not Available [facility] [address] [address] [address], [place], [address], 01/27/2024 02:59:45 01/26/20 24 01/27/2024 MAGNE SIUM magnesium 1.9 mg/dL 1.5-2. 5 normal Not Available [facility] [address] [address] [place], [address], 01/27/2024 02:59:47 01/26/20 24 01/27/2024 URIC ACID uric acid 3.0 mg/dL 4.0-8. 0 low Thera peuti c targe t for gout patie nts: <6.0 mg/dL Not Available [facility] [address] [address] [place], [address], 01/27/2024 02:59:48 01/26/20 24 01/27/2024 COMPR EHENS NORY METAB OLIC PANEL glucose 153 mg/dL 65-99 high Fasti ng refer ence inter brendan For someo ne witho ut known diabe lilliana, a gluco se value >125 mg/dL indic ates that they may have diabe lilliana and this shoul d be confi rmed with a follo w-up test. Not Available [address] [place], [address], 01/27/2024 02:59:49 01/26/2001/27/2024 COMPR EHENS NORY METAB OLIC PANEL urea nitrogen (BUN) 10 mg/dL 7-25 normal Not Available [address] [place], [address], 01/27/2024 02:59:49 01/26/20 24 01/27/2024 COMPR EHENS NORY METAB OLIC PANEL creatinine 0.71 mg/dL 0.60-1 .26 normal Not Available [address] [place], [address], 01/27/2024 02:59:49 01/26/20 24 01/27/2024 COMPR EHENS NORY METAB OLIC PANEL eGFR 120 mL/mi n/1.7 3m2 > or = 60 normal Not Available [address], [address], 01/27/2024 02:59:49 01/26/20 24 01/27/2024 COMPR EHENS NORY METAB OLIC PANEL BUN/creatini ne ratio SEE NOTE: (calc ) 6-22 Not Repor fabiana: BUN and Creat inine are withi n refer ence range . Not Available [address] [address] [place], [address], 01/27/2024 02:59:49 01/26/20 24 01/27/2024 COMPR EHENS NORY METAB OLIC PANEL sodium 138 mmol/ L 135-14 6 normal Not Available [address], [address], 01/27/2024 02:59:49 01/26/20 24 01/27/2024 COMPR EHENS NORY METAB OLIC PANEL potassium 4.1 mmol/ L 3.5-5. 3 normal Not Available [address], [address], 01/27/2024 02:59:49 01/26/20 24 01/27/2024 COMPR EHENS NORY METAB OLIC PANEL chloride 100 mmol/ L 98-110 normal Not Available [address], [address], 01/27/2024 02:59:49 01/26/20 24 01/27/2024 COMPR EHENS NORY METAB OLIC PANEL carbon dioxide 29 mmol/ L 20-32 normal Not Available [address], [address], 01/27/2024 02:59:49 01/26/20 24 01/27/2024 COMPR EHENS NORY METAB OLIC PANEL calcium 9.2 mg/dL 8.6-10 .3 normal Not Available [address], [address], 01/27/2024 02:59:49 01/26/20 24 01/27/2024 COMPR EHENS NORY METAB OLIC PANEL protein, total 6.8 g/dL 6.1-8. 1 normal Not Available [address], [address], 01/27/2024 02:59:49 01/26/20 24 01/27/2024 COMPR EHENS NORY METAB OLIC PANEL albumin 4.3 g/dL 3.6-5. 1 normal Not Available [address], [address], 01/27/2024 02:59:49 01/26/20 24 01/27/2024 COMPR EHENS NORY METAB OLIC PANEL globulin 2.5 g/dL_ (calc ) 1.9-3. 7 normal Not Available [address], [address], 01/27/2024 02:59:49 01/26/20 24 01/27/2024 COMPR EHENS NORY METAB OLIC PANEL albumin/glob ulin ratio 1.7 (calc ) 1.0-2. 5 normal Not Available [address], [address], 01/27/2024 02:59:49 01/26/20 24 01/27/2024 COMPR EHENS NORY METAB OLIC PANEL bilirubin, total 0.5 mg/dL 0.2-1. 2 normal Not Available [address], [address], 01/27/2024 02:59:49 01/26/20 24 01/27/2024 COMPR EHENS NORY METAB OLIC PANEL alkaline phosphatase 83 U/L 36-130 normal Not Available [address], [address], 01/27/2024 02:59:49 01/26/20 24 01/27/2024 COMPR EHENS NORY METAB OLIC PANEL AST 25 U/L 10-40 normal Not Available [address], [address], 01/27/2024 02:59:49 01/26/20 24 01/27/2024 COMPR EHENS NORY METAB OLIC PANEL ALT 33 U/L 9-46 normal Not Available [address], [address], 01/27/2024 02:59:49 01/26/20 24 01/27/2024 ALBUM IN, RANDO M URINE W/O CREAT ININE albumin, urine 0.2 mg/dL see note: normal Refer ence Range : Refer ence Range Not estab lishe d Not Available [address], [address], 01/27/2024 02:59:50 01/26/20 24 01/27/2024 ALBUM IN, RANDO M URINE W/O CREAT ININE KARIN The ADA defin es abnor malit ies in album in excre tion as follo ws: Album inuri a Categ ory Resul t (mg/g creat inine ) Laina l to Mildl y incre ased <30 Moder ately incre ased 30-29 9 Sever milvia incre ased > OR = 300 The ADA recom mends that at least two of three speci mens colle cted withi n a 3-6 month perio d be abnor mal befor e consi torres g a patie nt to be withi n a diagn ostic categ ory. Not Available [employer] [address], [address], 01/27/2024 02:59:50 01/26/20 24 01/27/2024 VITAM IN B12 vitamin B12 324 pg/mL 200-11 00 normal Pleas e Note: Altho ugh the refer ence range for vitam in B12 is 200-1 100 pg/mL , it has been repor fabiana that betwe en 5 and 10% of patie nts with value s betwe en 200 and 400 pg/mL may exper ience neuro psych iatri c and hemat ologi c abnor malit ies due to occul t B12 defic iency ; less than 1% of patie nts with value s above 400 pg/mL will have sympt oms. Not Available [address], [address], 01/27/2024 02:59:51 01/26/20 24 01/27/2024 T4, FREE T4, free 1.6 NG/dL 0.8-1. 8 normal Not Available [employer] [address] [place], [address], 01/27/2024 02:59:52 01/26/20 24 01/27/2024 TSH TSH 0.90 mIU/L 0.40-4 .50 normal Not Available [facility] [address], [address], 01/27/2024 02:59:53 01/26/20 24 01/27/2024 HEMOG LOBIN A1C hemoglobin A1C 8.1 %_of_ total _HGB <5.7 high For someo ne witho ut known diabe lilliana, a hemog lobin A1c value of 6.5% or great er indic ates that they may have diabe lilliana and this shoul d be confi rmed with a follo w-up test. For someo ne with known diabe lilliana, a value <7% indic ates that their diabe lilliana is well contr olled and a value great er than or equal to 7% indic ates subop timal contr ol. A1c targe ts shoul d be indiv idual ized based on durat ion of diabe lilliana, age, comor bid condi tions , and other consi derat ions. Curre ntly, no conse nsus exist s regar ding use of hemog lobin A1c for diagn osis of diabe lilliana for child nav. Not Available [facility] [address], [address], 01/27/2024 02:59:54 08/04/19 25 08/04/2024 LIPID PANEL , STAND ZEYAD cholesterol, total 124 mg/dL <200 normal Not Available [facility] [address], [address], 08/04/2024 07:11:55 08/04/19 25 08/04/2024 LIPID PANEL , STAND ZEYAD HDL cholesterol 41 mg/dL > or = 40 normal Not Available [facility] [address] [place], [address], 08/04/2024 07:11:55 08/04/19 25 08/04/2024 LIPID PANEL , STAND ZEYAD triglyceride s 86 mg/dL <150 normal Not Available [address], [address], 08/04/2024 07:11:55 08/04/19 25 08/04/2024 LIPID PANEL , STAND ZEYAD LDL-choleste rol 66 mg/dL _(lesli c) normal Refer ence range : <100 Zandra able range <100 mg/dL for prima ry preve ntion ; <70 mg/dL for patie nts with CHD or diabe tic patie nts with > or = 2 CHD risk facto rs. LDL-C is now calcu lated using the Sharla n-Hop kins calcu roslyn n, which is a valid ated novel metho d provi ding duran r accur acy than the Fried fatemeh equat ion in the estim ation of LDL-C . Sharla vaughn SS et al. SARA. 2013; 310(1 9): 2061- 2068 (http ://ed ucati on.Qu shannonVital [employer]. DropThought/f aq/FA Q164) Not Available [address] [address] [place], [address], 08/04/2024 07:11:55 08/04/19 25 08/04/2024 LIPID PANEL , STAND ZEYAD chol/HDLC ratio 3.0 (calc ) <5.0 normal Not Available [employer] [facility] [address] [place], [address], 08/04/2024 07:11:55 08/04/19 25 08/04/2024 LIPID PANEL , STAND ZEYAD non HDL cholesterol 83 mg/dL _(lesli c) <130 normal For patie nts with diabe lilliana plus 1 major ASCVD risk facto r, treat ing to a non-H DL-C goal of <100 mg/dL (LDL- C of <70 mg/dL ) is consi dered a thera peuti c optio n. Not Available [employer] [facility] [address] [address] [place], [address], 08/04/2024 07:11:55 08/04/19 25 08/04/2024 COMPR EHENS NORY METAB OLIC PANEL glucose 190 mg/dL 65-99 high Fasti ng refer ence inter brendan For someo ne witho ut known diabe lilliana, a gluco se value >125 mg/dL indic ates that they may have diabe lilliana and this shoul d be confi rmed with a follo w-up test. Not Available [address] [address] [place], [address], 08/04/2024 07:11:57 08/04/19 25 08/04/2024 COMPR EHENS NORY METAB OLIC PANEL urea nitrogen (BUN) 14 mg/dL 7-25 normal Not Available [address], [address], 08/04/2024 07:11:57 08/04/19 25 08/04/2024 COMPR EHENS NORY METAB OLIC PANEL creatinine 0.82 mg/dL 0.60-1 .29 normal Not Available [facility] [address], [address], 08/04/2024 07:11:57 08/04/19 25 08/04/2024 COMPR EHENS NORY METAB OLIC PANEL eGFR 114 mL/mi n/1.7 3m2 > or = 60 normal Not Available [address] [place], [address], 08/04/2024 07:11:57 08/04/19 25 08/04/2024 COMPR EHENS NORY METAB OLIC PANEL BUN/creatini ne ratio SEE NOTE: (calc ) 6-22 Not Repor fabiana: BUN and Creat inine are withi n refer ence range . Not Available [address], [address], 08/04/2024 07:11:57 08/04/19 25 08/04/2024 COMPR EHENS NORY METAB OLIC PANEL sodium 140 mmol/ L 135-14 6 normal Not Available [address], [address], 08/04/2024 07:11:57 08/04/1908/04/2024 COMPR EHENS NORY METAB OLIC PANEL potassium 4.4 mmol/ L 3.5-5. 3 normal Not Available [address], [address], 08/04/2024 07:11:57 08/04/19 25 08/04/2024 COMPR EHENS NORY METAB OLIC PANEL chloride 103 mmol/ L 98-110 normal Not Available [address], [address], 08/04/2024 07:11:57 08/04/19 25 08/04/2024 COMPR EHENS NORY METAB OLIC PANEL carbon dioxide 30 mmol/ L 20-32 normal Not Available [address], [address], 08/04/2024 07:11:57 08/04/1908/04/2024 COMPR EHENS NORY METAB OLIC PANEL calcium 9.3 mg/dL 8.6-10 .3 normal Not Available [address], [address], 08/04/2024 07:11:57 08/04/19 25 08/04/2024 COMPR EHENS NORY METAB OLIC PANEL protein, total 6.7 g/dL 6.1-8. 1 normal Not Available [address], [address], 08/04/2024 07:11:57 08/04/1908/04/2024 COMPR EHENS NORY METAB OLIC PANEL albumin 4.2 g/dL 3.6-5. 1 normal Not Available [address], [address], 08/04/2024 07:11:57 08/04/19 25 08/04/2024 COMPR EHENS NORY METAB OLIC PANEL globulin 2.5 g/dL_ (calc ) 1.9-3. 7 normal Not Available [address], [address], 08/04/2024 07:11:57 08/04/19 25 08/04/2024 COMPR EHENS NORY METAB OLIC PANEL albumin/glob ulin ratio 1.7 (calc ) 1.0-2. 5 normal Not Available [address], [address], 08/04/2024 07:11:57 08/04/19 25 08/04/2024 COMPR EHENS NORY METAB OLIC PANEL bilirubin, total 0.5 mg/dL 0.2-1. 2 normal Not Available [address], [address], 08/04/2024 07:11:57 08/04/19 25 08/04/2024 COMPR EHENS NORY METAB OLIC PANEL alkaline phosphatase 63 U/L 36-130 normal Not Available [address], [address], 08/04/2024 07:11:57 08/04/19 25 08/04/2024 COMPR EHENS NORY METAB OLIC PANEL AST 13 U/L 10-40 normal Not Available [address], [address], 08/04/2024 07:11:57 08/04/19 25 08/04/2024 COMPR EHENS NORY METAB OLIC PANEL ALT 14 U/L 9-46 normal Not Available [address], [address], 08/04/2024 07:11:57 04/03/19 24 04/03/2023 MRI, lumba r spine , w/wo contr ast No observ ation record ed. [address] [facility] [address], [place], [address], 04/03/2023 17:19:53 04/10/19 24 04/03/2023 MRI, lumba r spine , w/o contr ast No observ ation record ed. [place] [id number] Not Available 2023 12:14:45 10/02/19 24 10/02/2023 US, abdom en No observ ation record ed. [address] [facility] [address], [place], [address], 10/02/2023 12:29:58 11/10/19 24 11/10/2023 NM, hepat obili immanuel scan No observ ation record ed. [address], [place], [address], 11/10/2023 16:53:09 02/06/20 24 02/06/2024 CT, abdom en + pelvi s, w/o contr ast No observ ation record ed. [address], [place], [address], 02/06/2024 12:46:26 Result Notes None recorded. Problems Name Problem SNOMED Code Status Onset Date Resolution Date Notes Provider Name and Address Organization Details Recorded Time Disorder of shoulder 716365845 Active Not Available [facility] 3 01:08:57 Lumbar radiculop athy 445345439 Active 2021 Dl Johns MD [address], [place], [address] , [place] [employer] 5 12:24:21 Lumbar radiculop athy 052038476 Completed 201905/08/2019 Dl Johns MD [address], [place], [address] , [place] [employer] 5 12:24:21 Hyperchol esterolem ia 62019732 Active Not Available [facility] 3 01:08:57 Spasm of back muscles 522505662 Active 2021 Not Available [facility] 3 01:08:57 Sciatica 36833948 Completed Not Available [facility] 3 01:08:58 Calyceal renal calculus 969912423 Active Not Available [facility] 3 01:08:58 Calculus in pelviuret cheryl junction 248831428 Active Not Available [facility] 3 01:08:58 Low back pain 596735016 Active 2021 Not Available [facility] 3 01:08:58 Low back strain 241781129 Active 2021 Not Available [facility] 3 01:08:58 Knee pain Active Not Available [facility] 3 01:08:58 Type 2 diabetes mellitus without complicat ion 507385837 Active Not Available [facility] 3 01:08:58 Right side sciatica 40854469869 9101 Active 2019 Not Available [facility] 3 01:08:58 Migraine 23265182 Active Not Available [facility] 3 01:08:59 Gout 78525893 Active Not Available [facility] 3 01:08:59 Kidney stone 33141490 Active 2020 Not Available [facility] 3 01:08:59 Hemorrhoi ds 40927797 Active 2022 Dl Johns MD [address], [place], [address] , [employer] [facility] [employer] 3 12:53:55 Painless rectal bleeding 532006807 Active 2022 Dl Johns MD [address], [place], [address] , [employer] [facility] [employer] [facility] 3 10:38:13 Gastro-es ophageal reflux disease with esophagit is 406922461 Active 2022 Dl Johns MD [address], [place], [address] , [employer] [facility] 3 17:08:09 Prolapsed lumbar intervert ebral disc 999003361 Active 2022 Dl Johns MD [address], [address] [address], [place], [address] , [facility] [employer] [facility] [employer] [facility] 3 10:30:11 Obese class I 36997779117 4107 Active 2023 Dl Johns MD [address] [facility], [address], [address] , [facility] [employer] [facility] [employer] [facility] 4 17:02:31 Essential hypertens ion 46043683 Active 2023 Dl Johns MD [address], [place], [address] , [facility] [employer] [facility] [employer] [facility] 4 14:59:41 Insulin treated type 2 diabetes mellitus 966993329 Active 2024 Dl Johns MD [address], [address], [address] , [facility] [employer] [facility] [employer] [facility] 5 17:45:20 Notes:Some problems listed i n Document: #[id number] could not be added to this patient's chart. Please review this document and add these problems to the patient's chart manually as needed. Problem Notes None recorded. Medical Equipment None Reported. Medications Name Sig Start Date Stop Date Status Note LastModified by Organization Details LastModified Time Singulair 10 mg tablet Take 1 tablet every day by oral route. 05/01 completed Not Available Not Available Not Available losartan 50 mg tablet TAKE 1 TABLET DAILY 2024 active Not Available Not Available Not Avai lable cyclobenzap rine 10 mg tablet Take 1 tablet three times daily 07/27 completed Not Available Not Available Not Available amoxicillin 500 mg capsule Take 1 capsule 3 times a day by oral route for 10 days. 06/20 completed Not Available Not Available Not Available Humalog Mix 75-25 (U-100) Insulin 100 unit/mL subcutaneou s suspension 24 UNITS TWICE A DAY 07/27 completed Not Available Not Available Not Available methocarbam ol 500 mg tablet TAKE 2 TABLETS BY MOUTH 2 TIMES A DAY NEEDED FOR MUSCLE SPASM active Not Available Not Available No t Available metformin 500 mg tablet Take 1 tablet twice a day by oral route. 01/25 completed Not Available Not Available Not Available rabeprazole 20 mg tablet,michelle yed release TAKE 1 TABLET TWICE A DAY active Not Available Not Available No t Available atorvastati n 20 mg tablet TAKE 1 TABLET BY MOUTH ONCEDAILY active Not Available Not Available No t Available atorvastati n 10 mg tablet Take 1 tablet every day by oral route. 2013 active Not Available Not Available Not Avai lable ibuprofen 800 mg tablet Take 1 tablet every 8 hours by oral route as needed. 07/11 completed Not Available Not Available Not Available tizanidine 4 mg tablet 01/26 completed Not Available Not Available Not Available Lotrisone 1 %-0.05 % topical cream Apply by topical route twice daily active Not Available Not Available No t Available hydrocodone 5 mg-acetamin ophen 325 mg tablet Take 1 tablet every 6 hours by oral route as needed. 07/24 completed Not Available Not Available Not Available sucralfate 1 gram tablet 07/24 completed Not Available Not Available Not Available sulfamethox azole 800 mg-trimetho prim 160 mg tablet TAKE 1 TABLET BY MOUTH EVERY DAY 01/27 completed Not Available Not Available Not Available hydrocodone 10 mg-acetamin ophen 325 mg tablet 07/24 completed Not Available Not Available Not Available omeprazole 40 mg capsule,del ayed release Take 1 capsule twice a day by oral route. 07/24 completed Not Available Not Available Not Available tramadol 50 mg tablet TAKE 1 TABLET BY MOUTH EVERY 6 HOURS NEEDED 01/27 completed Not Available Not Available Not Available glimepiride 2 mg tablet TAKE 1 TABLET BY MOUTH TWICE DAILY AFTER BREAKFAST AND DINNER active Not Available Not Available No t Available ketorolac 10 mg tablet TAKE 1 TABLET BY MOUTH EVERY 8 HOURS NEEDED FOR PAIN active Not Available Not Available No t Available oxycodone-a cetaminophe n 5 mg-325 mg tablet 01/26 completed Not Available Not Available Not Available hydrocortis one 2.5 % topical cream with perineal applicator APPLY A THIN LAYER TO THE AFFECTED AREA(S) BY TOPICAL ROUTE 2-4 TIMESDAIL Y 04/30 /2025 completed Not Available Not Available Not Available Tessalon Perles 100 mg capsule Take 1 capsule 3 times a day by oral route. active Not Available Not Available No t Available tamsulosin 0.4 mg capsule TAKE 1 CAPSULE BY MOUTH DAILY 01/27 completed Not Available Not Available Not Available Valium 5 mg tablet Take 1 tablet twice a day by oral route. 07/02 completed Not Available Not Available Not Available diazepam 2 mg tablet 07/28 completed Not Available Not Available Not Available baclofen 10 mg tablet Take 1 tablet 4 times a day by oral route. active Not Available Not Available No t Available hydrocodone 7.5 mg-acetamin ophen 325 mg tablet Take 1 tablet every 6 hours by oral route as needed. DX: M54.5 active Not Available Not Available No t Available metformin 1,000 mg tablet TAKE 1 TABLET TWICE DAILY WITH MEALS active Not Available Not Available No t Available omeprazole 20 mg capsule,del ayed release Take 1 capsule every day by oral route. 01/23 completed Not Available Not Available Not Available diclofenac sodium 75 mg tablet,michelle yed release Take 1 tablet twice a day by oral route. 05/01 completed Not Available Not Available Not Available allopurinol 300 mg tablet TAKE 1 TABLET BY MOUTH DAILY active Not Available Not Available No t Available gabapentin 100 mg capsule 07/24 completed Not Available Not Available Not Available methylpredn isolone 4 mg tablets in a dose pack TAKE 6 TABLETS ON DAY 1 DIRECTED ON PACKAGE AND DECREASE BY 1 TAB EACH DAY FOR A TOTAL OF 6 DAYS active Not Available Not Available No t Available oxybutynin chloride 5 mg tablet TAKE 1 TABLET BY MOUTH THREE TIMES DAILY NEEDED 01/27 completed Not Available Not Available Not Available ondansetron 4 mg disintegrat ing tablet DISSOLVE 1 TABLET ON THE TONGUE EVERY 8 HOURS NEEDED FOR NAUSEA OR VOMITING 01/27 completed Not Available Not Available Not Available fluticasone propionate 50 mcg/actuati on nasal spray,suspe nsion [place] 1 spray every day by intranasa l route. 07/11 completed Not Available Not Available Not Available colestipol 1 gram tablet TAKE 1 TABLET TWICE A DAY active Not Available Not Available No t Available naproxen 500 mg tablet Take 1 tablet twice a day by oral route. 01/27 completed Not Available Not Available Not Available BD Ultra-Fine Mini Pen Needle 31 gauge x /16 USE TO INJECT INSULIN TWO TIMES A DAY active Not Available Not Available No t Available [place] every 6 hours as needed 07/11 completed Not Available Not Available Not Available Humalog Mix 75-25(U-100 )Insuln 20 units 2 times a day 05/01 completed Not Available Not Available Not Available Humalog Mix 75-25 KwikPen U-100 insulin 100 unit/mL subcutaneou s pen INJECT 24 UNITS TWICE A DAY 07/24 completed Not Available Not Available Not Available Humalog KwikPen Insulin 05/25 completed Not Available Not Available Not Available Contour Next Meter 01/25 completed Not Available Not Available Not Available Jardiance 10 mg tablet Take 1 tablet every day by oral route. 07/24 completed Not Available Not Available Not Available Jardiance 25 mg tablet TAKE 1 TABLET BY MOUTH DAILY active Not Available Not Available No t Available Jardiance 10 mg once a day 05/20 completed Not Available Not Available Not Available Trulicity 1.5 mg/0.5 mL subcutaneou s pen injector 01/25 completed Not Available Not Available Not Available Trulicity 0.75 mg/0.5 mL subcutaneou s pen injector Inject 0.5 mL every week by subcutane ous route. 01/25 completed Not Available Not Available Not Available Accu-Chek Guide test strips USE TO TEST BLOOD SUGARS 3 TIMES A DAY. active Not Available Not Available No t Available OneTouch Ultra Blue Test Strip 01/25 completed Not Available Not Available Not Available Novolin 70-30 FlexPen U-100 Insulin 100 unit/mL (70-30) subcutaneou s INJECT 32 UNITS SUBCUTANE OUSLY TWO TIMES A DAY active Not Available Not Available No t Available Novolin N FlexPen 100 unit/mL (3 mL) subcutaneou s insulin pen Inject 28 units twice a day by subcutane ous route. active Not Available Not Available No t Available Trulicity 3 mg/0.5 mL subcutaneou s pen injector INJECT 3 MG BY SUBCUTANE OUS ROUTE ONCE WEEKLY 01/23 completed Not Available Not Available Not Available Trulicity 4.5 mg/0.5 mL subcutaneou s pen injector INJECT 0.5 ML (4.5 MG TOTAL) UNDER THE SKIN EVERY 7 DAYS 07/24 completed Not Available Not Available Not Available Ozempic 1 mg/dose (4 mg/3 mL) subcutaneou s pen injector INJECT 1MG SUBCUTANE OUSLY EVERY 7 DAYS active Not Available Not Available No t Available Ozempic 2 mg/dose (8 mg/3 mL) subcutaneou s pen injector INJECT 2 MG SUBCUTANE OUSLY EVERY 7 DAYS active Not Available Not Available No t Available Mounjaro 7.5 mg/0.5 mL subcutaneou s pen injector 01/25 completed Not Available Not Available Not Available Mounjaro 5 mg/0.5 mL subcutaneou s pen injector 01/25 completed Not Available Not Available Not Available Mounjaro 2.5 mg/0.5 mL subcutaneou s pen injector INJECT 2.5 MG BY SUBCUTANE OUS ROUTE ONCE WEEKLY FOR 4 WEEKS 01/25 completed Not Available Not Available Not Available Vitals Date Recorded Body height Body mass index (BMI) Body weight Heart rate Body temperature Oxygen saturation Oxygen saturation in Arterial blood by Pulse oximetry Systolic And Diastolic Provider Name and Address Organization Details Last Updated DateTime 5 182.88 cm 31.4 kg/m2 846741. 63 g 86 /min 97 [degF] 98 % 98 % 118/78 mm[Hg] Dayan Cr [employer] [facility] [facility] 5 17:26:21 Date Recorded Body height Body mass index (BMI) Body weight Heart rate Body temperature Oxygen saturation Oxygen saturation in Arterial blood by Pulse oximetry Systolic And Diastolic Provider Name and Address Organization Details Last Updated DateTime 4 182.88 cm 31.7 kg/m2 516207. 61 g 80 /min 97.9 [degF] 98 % 98 % 124/80 mm[Hg] MARISSA [place] [employer] [facility] [employer] [facility] 4 16:55:29 Date Recorded Body height Body mass index (BMI) Body weight Heart rate Body temperature Oxygen saturation Oxygen saturation in Arterial blood by Pulse oximetry Systolic And Diastolic Provider Name and Address Organization Details Last Updated DateTime 5 182.88 cm 30.2 kg/m2 851846. 1 g 97 /min 97 [degF] 96 % 96 % 120/72 mm[Hg] Dayan [employer] [facility] 5 12:17:25 Date Recorded Body height Body mass index (BMI) Body weight Heart rate Body temperature Oxygen saturation Oxygen saturation in Arterial blood by Pulse oximetry Systolic And Diastolic Provider Name and Address Organization Details Last Updated DateTime 4 182.88 cm 32.1 kg/m2 069905. 39 g 79 /min 97 [degF] 98 % 98 % 120/84 mm[Hg] Dayan [employer] [facility] [employer] [facility] 4 17:01:39 Date Recorded Body height Body mass index (BMI) Body weight Heart rate Body temperature Oxygen saturation Oxygen saturation in Arterial blood by Pulse oximetry Systolic And Diastolic Provider Name and Address Organization Details Last Updated DateTime 3 186.69 cm 30.8 kg/m2 271887. 39 g 82 /min 97 [degF] 98 % 98 % 120/72 mm[Hg] Dayan [employer] [facility] [employer] [facility] 3 17:03:04 Social History Question Answer Notes LastModified by Organizat ion Details LastModified Time In The 14 Days Before Symptom Onset, Have You Had Close Contact With A Laboratory-confirme d COVID-19 While That Case Was Ill? No [id number] Information not available 05/25/2022 In The 14 Days Before Symptom Onset, Have You Had Close Contact With A Person Who Is Under Investigation For COVID-19 While That Person Was Ill? No [id number] Information not available 05/25/2022 Have You Recently Traveled Abroad? No [id number] Information not available 05/25/2022 Sex: Unknown Functional Status None recorded. Mental Status None recorded. Family History Nothing Reported Notes:Father 70 HTN, DM, cho lesterol and Gout Mother 69 with HTN and Type II DM one sister living and in good health Medical History Condition Response NERVE DISEASE N BLINDNESS N RHEUMATIC FEVER N KIDNEY STONES N BLADDER PROBLEMS N MRSA N OTHER # 1 N POLIO N LUNG DISEASE/DISORDER N HISTORY OF DRUG ABUSE N COPD N RADIATION / CHEMOTHERAPY N Other # 2 N BLOOD DISEASES N EAR OR HEARING PROBLEMS N MUMPS N SHINGLES N DEPRESSION (INCLUDING POST ) N BOWEL PROBLEMS N STROKE/TIA N ULCERS N BENIGN PROSTATIC HYPERPLASIA N MEASLES N HYPOTENSION N MYOCARDIAL INFARCTION N OBESITY N GERD/NAUSEA N ANEURYSM N URINARY/BLADDER/KIDNEY PROBLEMS N CORONARY ARTERY DISEASE (CAD) N ADDICTION CONCERNS N Impotence N ENDOMETRIOSIS N USE OF BLOOD THINNERS N SKIN PROBLEMS N GASTROINTESTINAL DISORDER N PERIPHERAL VASCULAR DISEASE N MUSCLE,JOINT OR BONE PROBLEMS N GASTROINTESTINAL BLEEDING N BLOOD CLOTS N ASTHMA N CATARACTS N ERECTILE DYSFUNCTION N VARICOSITIES N GI PROBLEMS N Low Testosterone N INFERTILITY N AIDS/HIV N CHEMOTHERAPY / RADIATION N LIVER DISEASE N MALE HYPOGONADISM N HYPERTENSION N Deficiency N TOURETTE'S N ANXIETY DISORDER N BLOOD TRANSFUSION N ANEMIA/BLOOD DISORDER N CHRONIC EAR INFECTIONS N BRONCHITIS N TUBERCULOSIS N GLAUCOMA N FOOT PROBLEM N DIVERTICULITIS N SLEEP APNEA N CHICKENPOX N INFECTIOUS DISEASE N PROSTATE N HEART ARRHYTHMIA N INSOMNIA N HIGH CHOLESTEROL / HYPERLIPIDEMIA Y EYE PROBLEMS N HYPERTHYROIDISM N EDEMA N CHRONIC PAIN SYNDROME N HYPOTHYROIDISM N CAROTID BLOCKAGE N CONSTIPATION N BACK / NECK PROBLEMS N HAVE YOU BEEN HOSPITALIZED OR SEEN IN [facility] IN THE PAST YEAR ? N ATHEROSCLEROSIS N BREAST PROBLEMS N DIALYSIS N ECZEMA N OSTEOPOROSIS N ARTHRITIS N NO SIGNIFICANT PAST MEDICAL HISTORY N APPENDICITIS N DIABETES, TYPE Y BAD TEETH N ENT N HEARTBURN / REFLUX N AUTISM SPECTRUM DISORDER (ASD) N HEPATITIS / LIVER DISEASE N GOUT N SLEEP DISORDER N ALZHEIMER'S DISEASE N Brain Problems N DEMENTIA N HERPES N SEIZURES/EPILEPSY N HEADACHES/MIGRAINES Y VASCULAR DISEASE N PACEMAKER N Blood Disorder N DIZZINESS N HEART DISEASE/HEART PROBLEMS N KIDNEY DISEASE N MULTIPLE SCLEROSIS N CANCER: SPECIFY N CARDIAC ARRHYTHMIA N ATRIAL FIBRILLATION N Gall Stones N PULMONARY EMBOLISM N AUTOIMMUNE DISEASE N Immunizations Vaccine Type Date Status Note Provider Nam e and Address Organization Details Recorded Time SARS-COV-2 (COVID-19) vaccine, UNSPECIFIED 3 completed Dayan herrera [facility] [employer] [facility] 01/25/2023 17:04:44 influenza, unspecified formulation 3 completed Dayan herrera [employer] [facility] nap- Naturally Attached Parents [facility] 01/25/2023 17:04:56 SARS-COV-2 (COVID-19) vaccine, UNSPECIFIED 4 completed Dayan herrera [facility] 01/24/2024 17:06:38 influenza, unspecified formulation 4 completed Dayan herrera [facility] 01/24/2024 17:07:01 Influenza, split virus, quadrivalent, preservative 2 completed Not Available [facility] 05/25/2022 01:25:13 SARS-COV-2 (COVID-19) vaccine, UNSPECIFIED 2 completed Not Available [facility] 05/25/2022 01:25:13 SARS-COV-2 (COVID-19) vaccine, UNSPECIFIED 1 completed Not Available [facility] 05/25/2022 01:25:13 Influenza, adjuvanted, trivalent, PF 1 completed Not Available [facility] 05/25/2022 01:25:13 SARS-COV-2 (COVID-19) vaccine, UNSPECIFIED 1 completed Not Available [facility] 05/25/2022 01:25:14 SARS-COV-2 (COVID-19) vaccine, UNSPECIFIED 1 completed Not Available [facility] 05/25/2022 01:25:14 Tdap 9 completed Not Available [facility] 05/25/2022 01:25:14 Influenza, split virus, quadrivalent, preservative 5 completed Not Available [facility] 05/25/2022 01:25:14 Past Encounters Encounter ID Performer Location Encounter Start Date Encounter Closed Date Diagnosis/Indication Diagnosis SNOMED-CT Code Diagnosis ICD10 Code Diagnosis Note [id number] Dl Johns MD [facility] Internal Med [place] [address] [facility], [facility] [address] [place] [address] 05/25/2020 00:00:00 05/25/2020 17:23:54 [id number] Dl Johns MD [facility] [place] Internal Med [place] [address] [facility], [address] [address] 09/30/2020 00:00:00 09/30/2020 17:20:31 [id number] Dl Johns MD Pasquale[facility] [place] Internal Med [place] [address] [address] 01/27/2021 00:00:00 01/27/2021 17:40:30 [id number] Dl Johns MD [facility] [place] Internal Med [facility] [address] [address] 06/21/2021 00:00:00 06/21/2021 10:38:59 [id number] Dl Johns MD [facility] [place] Internal Med [facility] [address] [address] 07/28/2021 00:00:00 07/28/2021 17:06:53 [id number] Dl Johns MD [place] [facility] [place] Internal Med [facility] [address] [address] 01/26/2022 00:00:00 01/26/2022 17:28:49 [id number] Dl Johns MD [place]_[facility] [place] Internal Med [facility] [address] [address] 07/27/2022 16:52:27 07/27/2022 17:17:08 Hypercholesterolemia 26385295 E78.00 Gout 16011641 M10.9 Type 2 jero betes mellitus without complication 631628313 E11.9 Lumbar radiculopathy 128 027964 M54.16 [id number] Dl Johns MD [place]_[facility] [place] Internal Med [facility] [address] [address] 10/05/2022 10:22:58 10/05/2022 10:41:37 Adult health examination 997226668 Z00.00 Depression screening 171 453086 Z13.31 Hypercholesterolemia 136 94113 E78.00 Type 2 jero betes mellitus without complication 614907543 E11.9 Gout 32844753 M10.9 Painless r ectal bleeding 240603177 K62.5 [id number] Dl Johns MD [place] [place] Internal Med [facility] [address] [address] 01/25/2023 16:55:26 01/25/2023 17:16:49 Hypercholesterolemia 94420036 E78.00 Type 2 jero betes mellitus without complication 519076214 E11.9 Gastro-eso phageal reflux disease with esophagitis 243184373 K21.00 Gout 62773244 M10.9 [id number] Dl Johns MD [facility] Internal Med [facility] [address] [address] 07/26/2023 16:49:04 07/26/2023 17:09:40 Hypercholesterolemia 58551579 E78.00 Gout 96358690 M10.9 Type 2 jero betes mellitus without complication 807214558 E11.9 Gastro-eso phageal reflux disease with esophagitis 755911258 K21.00 Obese class I 5433502645 08552 E66.9 [id number] Dl Johns MD [facility] Internal Med [facility] [address] [address] 01/24/2024 16:49:39 01/24/2024 17:16:39 Hypercholesterolemia 12714723 E78.00 Type 2 jero betes mellitus without complication 662629880 E11.9 Gastro-eso phageal reflux disease with esophagitis 836363042 K21.00 Gout 41690260 M10.9 [id number] Dl Johns MD [facility] Internal Med [facility] [address] [address] 07/24/2024 16:53:57 07/24/2024 17:50:11 Essential hypertension 65277326 I10 Hypercholesterolemia 136 75425 E78.00 Insulin tr eated type 2 diabetes mellitus 764547358 E11.9 Z79.4 Gastro-eso phageal reflux disease with esophagitis 372613215 K21.00 [id number] Dl Johns MD [place] [place] Internal Med [facility] [address] [address] 08/20/2024 11:53:26 08/20/2024 12:29:33 Lumbar radiculopathy 933793883 M54.16 Health Concerns Section Related Observation LastModified by Organization Detai ls LastModified Time None Recorded Concern Status LastModified by Organization Details LastModified Time None Recorded Advance Directives Directive None Recorded Payers Insurance Date Sequence Insurance Name Policy Number Policy Augustin Covered Member ID Augustin Member ID Guarantor Name 08/20/2024 1 [facility] [id number] Weston Magdaleno [id number] Weston Magdaleno 08/20/[address] [facility] [id number] 2 Weston Magdaleno [id number] Weston Magdaleno Notes Date Note Type Note Provider Name and Address Organization Details Recorded Time 01/26/20 23 text/htm l Patient Name: Weston Branch Of Service: Monday ( 01.25.2023 ): 1985 Age: 37 There has been approximately a 10 lb weight gain since 10/05/2022. This represents approximately a 4.4% change in weight. Weight change attributable to lifestyle changes. Vital Signs:Blood Pressure: Sitting Rt. Arm 120/72Pulse: Sitting 82 /min and RegularRespiratory Rate: 12Height 72.5 in or 1.8 mWeight 237 lb or 107.5 kgBMI 31.7Temperature: 97 F or 36.1 CDCCT HAIC: 7.4 Calculated MB mg%Pulse Oximetry: 98 % at rest on no oxygen Chief Complaint: Addressed in HPI Problems or conditions discussed in the HPI were the only ones reviewed during the encounter.Only social and family history addressed in the HPI were reviewed during this encounter. Attendant(s): NoneConstitutional and Systemic Symptoms:none Medication Reconciliation: from medication list. Emkjvufyyzg30/21/2023 colonoscopy negative with the exception for some internal hemorrhoids. Repeat in approximately 10 years11/14/2022: Upper endoscopy reflux esophagitis grade 1. Small hiatus hernia. Nonobstructive ring was noted at the esophageal cardia. A dilatation was performed using 18-20 mm. Mild gastritis in the stomach was noted. Mild duodenitis was also noted in the 2nd portion of the duodenum. History of Present Illness #1. Type II Hypercholesterolaemia: Currently taking medication and tolerating well. No interval complaints of any muscle pain or arthralgia. No significant liver changes with medications. Last lipid panel: fair control. Therapy reviewed regarding treatment of cholesterol management and include diet and Atorvastatin Calcium. #2. Type II Diabetes: Has had no polyuria polyphagia or polydipsia. Has had no hypoglycemic like responses. No new history of any numbness, tingling, weakness or visual problems. No nausea, anorexia or other constitutional symptoms. There has been no foot problems or non healing lesions. The last HAIC was DCCT HAIC: 7.4 Calculated MB mg%. Average blood sugars 125-150 mg%. Checking sugars : not at all Medication Types Include: Metformin, GLP-1, Sulfonylureas, SGLT2 inhibitors and Insulin Secondary complications include none. Macro-vascular complications include none. Therapy reviewed regarding diabetic management and include Amaryl, Glucophage, Humalog, Jardiance and Trulicity Compliance: good Renal Protection: Jardiance Lipid management: statins Urinary microalbumin: A1 . Ophthalmological: has seen eye doctor within the last year #3. Hx of esophageal reflux currently stable. Hx of Complications: stricture The severity, duration and intensity of symptoms have improved. Frequency: most meals Treatment consists medications taken on a regular basis. Current therapy includes Omeprazole. There has been no nausea, eructation, vomiting, hematemesis, dysphagia, velopharyngeal insufficiency and odynophagia. No change in he frequency or intensity of symptoms. Has had no melena. Has had no hematemesis. Discuss the possibility of trying to reduce the frequency of the use of any PPI inhibitors or H2 antagonist to see if symptoms can be controlled with last intensive therapyMedication List Reviewed and Reconciled 01/25/2023Jardiance 10 MG (TABLET - ORAL) One DailyAllopurinol 300 MG (TABLET - ORAL) One Daily For GoutGlucophage 1000 MG One Bid With Meals For Type II DmAmaryl 2 MG (TABLET - ORAL) One Daily In Morning For Type II DmAtorvastatin Calcium 20 MG (TABLET - ORAL) One DailyHumalog 75 UNITS/ ML-25 UNITS/ ML (INJECTABLE - INJECTION) 24 Untis Twice DailyTrulicity 3 MG/.5ML INJECTION, SOLUTION WeeklyOmeprazole 20 MG CAPSULE, DELAYED RELEASE Once DailyVaccination and Tfwepktwxdwr5272-42 Toeduwiyh4858-79 Covid Booster Sqmxux5727-05 Covid Booster Yryxyzl4964-79 Covid Eamekqf8173-19 TdapSurgical HistoryEsophageal dilatation, L4-L5 MicrodisectomyPreventative Testing Confirmed by Our Zfumusc4011/14/2022 UPPER RPVYQNUDW76/21/2023 COLONOSCOPY ( 10 YEARS ) 303/ ALBUMIN 4.4 G/DL N104/08/2020 MICRO ALBUMIN 0.6 MG/DL N104/08/2020 HAIC 7.9 % OF TOTAL HGB H004/21/2016 LETTER OPHTHALMOLOGYSocial HistoryDoes not smoke or drinkNo illicit 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 This represents approximately a 1.3% change in weight. Weight change attributable to lifestyle changes. Vital Signs:Blood Pressure: Sitting Rt. Arm 124/80Pulse: Sitting 80 /min and RegularRespiratory Rate: 12Height 72 in or 1.8 mWeight 234 lb or 106.1 kgBMI 31.7Temperature: 97.9 F or 36.6 CDCCT HAIC: 7.9 Calculated MB mg%Pulse Oximetry: 98 % at rest on no oxygen Chief Complaint: Addressed in HPI Problems or conditions discussed in the HPI were the only ones reviewed during the encounter.Only social and family history addressed in the HPI were reviewed during this encounter. Attendant(s): NoneConstitutional and Systemic Symptoms:none Medication Reconciliation: from medication list. Sspcalepfnx72/21/2023 colonoscopy negative with the exception for some internal hemorrhoids. Repeat in approximately 10 years11/14/2022: Upper endoscopy reflux esophagitis grade 1. Small hiatus hernia. Nonobstructive ring was noted at the esophageal cardia. A dilatation was performed using 18-20 mm. Mild gastritis in the stomach was noted. Mild duodenitis was also noted in the 2nd portion of the duodenum. History of Present Illness #1. Type II Hypercholesterolaemia: Currently taking medication and tolerating well. No interval complaints of any muscle pain or arthralgia. No significant liver changes with medications. Last lipid panel: fair control. Therapy reviewed regarding treatment of cholesterol management and include diet and Atorvastatin Calcium. #2. Gouty Arthritis: History of gouty arthritis. Has had no attacks since last examination. Currently taking allopurinol. No interval complaints of any new joint involvement. #3. Type II Diabetes: Has had no polyuria polyphagia or polydipsia. Has had no hypoglycemic like responses. No new history of any numbness, tingling, weakness or visual problems. No nausea, anorexia or other constitutional symptoms. There has been no foot problems or non healing lesions. The last HAIC was DCCT HAIC: 7.9 Calculated MB mg%. Average blood sugars > 150 mg%. Checking sugars : several times a week Medication Types Include: Metformin, GLP-1, Sulfonylureas, SGLT2 inhibitors and Insulin Secondary complications include none. Macro-vascular complications include none. Therapy reviewed regarding diabetic management and include Amaryl, Glucophage, Jardiance, Novolin-70/30 and Trulicity Compliance: good Renal Protection: not required at this stage Lipid management: statins Urinary microalbumin: A1 . Ophthalmological: has seen eye doctor within the last year #4. Hx of obesity. Currently Class 1 Obesity BMI 30-34.99. Has tried numerous dietary support and supplements with no benefit. Instructed on the health consequences of the obese status particularly cancer - diabetes and heart disease. Discussed new modalities of weight loss including GLP-1 medications that are used to treat diabetes. Potential candidate for bariatric surgery: No. Wishes to be evaluated by Dietary: No and was offered to be evaluated and instructed by sorter packer on weight loss diet. Active Medication ListJardiance 10 MG (TABLET - ORAL) One DailyAllopurinol 300 MG (TABLET - ORAL) One Daily For GoutGlucophage 1000 MG One Bid With Meals For Type II DmAmaryl 2 MG (TABLET - ORAL) One Daily In Morning For Type II DmAtorvastatin Calcium 20 MG (TABLET - ORAL) One DailyTrulicity 3 MG/.5ML INJECTION, SOLUTION WeeklyOmeprazole 20 MG CAPSULE, DELAYED RELEASE Once DailyNovolin-70/30 70-30 26u Bid Vaccination and Bekrszwmldqq2377-93 Yzlnyrhcg8776-63 Covid Booster Umknru5503-15 Covid Booster Nkzezoj2131-39 Covid Vqjndpe4515-16 Tdap Surgical Xbtsyks7056-90 Lumbar Vbxgwbkbmvb3143-12 Esophageal abvxynaacw1504-05 L4-L5 Microdisectomy Preventative Aovachi5502/03/2023 ALBUMIN 4.2 G/DL N011/14/2022 UPPER GRCQYJJJH34/21/2023 COLONOSCOPY ( 10 YEARS ) 3104/08/2020 MICRO ALBUMIN 0.6 MG/DL N104/08/2020 HAIC 7.9 % OF TOTAL HGB H004/21/2016 OPHTHALMOLOGY Social HistoryDoes not smoke or drinkNo 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 [employer] [facility] 07/26/2023 17:07:51 01/24/20 24 text/htm l Patient Name: Weston Branch Of Service: Monday ( 01.24.2024 ): 1985 Age: 38 There has been approximately a 3 lb weight gain since 07/26/2023. This represents approximately a 1.3% change in weight. Weight change attributable to lifestyle changes. Vital Signs:Blood Pressure: Sitting Rt. Arm 120/84Pulse: Sitting 79 /min and RegularRespiratory Rate: 16Height 72 in or 1.8 mWeight 237 lb or 107.5 kgBMI 32.1Temperature: 97 F or 36.1 CPulse Oximetry: 98 % at rest on no oxygen Chief Complaint: Addressed in HPI Problems or conditions discussed in the HPI were the only ones reviewed during the encounter.Only social and family history addressed in the HPI were reviewed during this encounter. Attendant(s): NoneConstitutional and Systemic Symptoms:none Medication Reconciliation: from medication list. Pokpjewcsph21/21/2023 colonoscopy negative with the exception for some internal hemorrhoids. Repeat in approximately 10 years11/14/2022: Upper endoscopy reflux esophagitis grade 1. Small hiatus hernia. Nonobstructive ring was noted at the esophageal cardia. A dilatation was performed using 18-20 mm. Mild gastritis in the stomach was noted. Mild duodenitis was also noted in the 2nd portion of the duodenum. 10-02-2023: Ultrasound of the abdomen right upper quadrant pain negative for any significant abnormalities gallbladder was well distended and appears normal with no evidence any gallstones or wall thickening. Bile duct is normal in diameter. Visualization of the pancreas aorta and IVC are all unremarkable 11-10-2023: Hepatobiliary scan negative for any obstructive or other pathology noted of the biliary system. History of Present Illness #1. Type I Hypercholesterolaemia: Currently taking medication and tolerating well. No interval complaints of any muscle pain or arthralgia. No significant liver changes with medications. Last lipid panel: fair control. Therapy reviewed regarding treatment of cholesterol management and include diet and Atorvastatin Calcium. #2. Type II Diabetes: Has had no polyuria polyphagia or polydipsia. Has had no hypoglycemic like responses. No new history of any numbness, tingling, weakness or visual problems. No nausea, anorexia or other constitutional symptoms. There has been no foot problems or non healing lesions. The last HAIC was DCCT HAIC: 7.5 Calculated MB mg%. CGM: No. Average blood sugars 125-150 mg%. Checking sugars : several times a week. Medication Types Include: Metformin, GLP-1, Sulfonylureas, SGLT2 inhibitors and Insulin Secondary complications include none. Macro-vascular complications include none. Therapy reviewed regarding diabetic management and include Amaryl, Glucophage, Jardiance, Novolin-70/30 and Trulicity Compliance: good Renal Protection: Jardiance Lipid management: statins Urinary microalbumin: A1 . Ophthalmological: has seen eye doctor within the last year. Control: Intermediate Control 7.1 - 8.0 #3. Gouty Arthritis: History of gouty arthritis. Has had no attacks since last examination. Currently taking allopurinol. No interval complaints of any new joint involvement. #4. Hx of esophageal reflux currently stable. Hx of Complications: none The severity, duration and intensity of symptoms have improved. Frequency: most meals Treatment consists medications taken on a regular basis. Current therapy includes Omeprazole. There has been no nausea. No change in he frequency or intensity of symptoms. Has had no melena. Has had no . Discussed use of H2 antagonists and the possibility of trying to reduce the frequency of the use of any PPI inhibitors and try H2 antagonists to see if symptoms can be controlled with lease intensive therapy since a number of complications are associated with chronic prolonged use of PPI inhibitors. Active Medication ListJardiance 25 MG TABLET, FILM COATED One DailyAllopurinol 300 MG (TABLET - ORAL) One Daily For GoutGlucophage 1000 MG One Bid With Meals For Type II DmAmaryl 2 MG (TABLET - ORAL) One Daily In Morning For Type II DmLosartan Potassium 50 MG TABLET One DailyAtorvastatin Calcium 20 MG (TABLET - ORAL) One DailyTrulicity 3 MG/.5ML INJECTION, SOLUTION WeeklyOmeprazole 40 MG CAPSULE, DELAYED RELEASE One Twice A DayNovolin-70/30 70-30 26u Bid Vaccination and Immunization( ) 2023-12 INFLUENZA( ) 2018-12 TDAP( ) 2020-05 COVID MODERNA( ) 2023-12 COVID BOOSTER PFIZER( ) 2020-12 COVID BOOSTER MODERNA Surgical Ozwvmwr1824-76 Lumbar Xygdggqbrqj2743-57 Esophageal nykvdhmpxa5334-57 L4-L5 Microdisectomy Preventative Testing( ) 08/05/2023 Albumin 4.4 G/DL N( ) 08/05/2023 HAIC 7.5 % OF TOTAL HGB H( ) 11/14/2022 Upper Endoscopy( ) 11/14/2022 Colonoscopy ( 10 Years ) 11/14/2032( ) 02/06/2021 Micro Albumin 0.6 MG/DL N( ) 04/21/2016 Ophthalmology Social HistoryDoes not smoke or drinkNo 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 This represents approximately a 2.3% change in weight. Weight change attributable to lifestyle changes. Vital Signs:Blood Pressure: Sitting Rt. Arm 118/78Pulse: Sitting 86 /min and RegularRespiratory Rate: 16Height 72 in or 1.8 mWeight 231.5 lb or 105.0 kgBMI 31.4Temperature: 97 F or 36.1 CPulse Oximetry: 98 % at rest on no oxygen Chief Complaint: Addressed in HPI Problems or conditions discussed in the HPI were the only ones reviewed during the encounter.Only social and family history addressed in the HPI were reviewed during this encounter. Attendant(s): NoneConstitutional and Systemic Symptoms:none Medication Reconciliation: from medication list. Qfgjciwovee18/21/2023 colonoscopy negative with the exception for some internal hemorrhoids. Repeat in approximately 10 years11/14/2022: Upper endoscopy reflux esophagitis grade 1. Small hiatus hernia. Nonobstructive ring was noted at the esophageal cardia. A dilatation was performed using 18-20 mm. Mild gastritis in the stomach was noted. Mild duodenitis was also noted in the 2nd portion of the duodenum. 10-02-2023: Ultrasound of the abdomen right upper quadrant pain negative for any significant abnormalities gallbladder was well distended and appears normal with no evidence any gallstones or wall thickening. Bile duct is normal in diameter. Visualization of the pancreas aorta and IVC are all unremarkable 11-10-2023: Hepatobiliary scan negative for any obstructive or other pathology noted of the biliary system. 02-06-2024: CT scan of the abdomen and pelvis with contrast shows bilateral nonobstructing nephrolithiasis. There is mild left hydronephrosis noted. History of Present Illness #1. Essential Hypertension: Stage: Stage I Interval Neurological Complaints no headaches, dizziness, weakness, visual changes, ataxia, aphasia and apraxia. No shortness of breath, orthopnea or cardiovascular symptoms. No other symptoms related to end organ damage. Pressure has been under excellent control. Currently normal. No other end organ symptoms or findings. Therapy reviewed regarding management of hypertension and includes salt restriction and Losartan Potassium. #2. Type II Hypercholesterolaemia: Currently taking medication and tolerating well. No interval complaints of any muscle pain or arthralgia. No significant liver changes with medications. Last lipid panel: fair control. Therapy reviewed regarding treatment of cholesterol management and include diet and Amaryl, Atorvastatin Calcium, Glucophage, Jardiance, Novolin-70/30 and Ozempic. #3. Type II Diabetes: Has had no polyuria polyphagia or polydipsia. Has had no hypoglycemic like responses. No new history of any numbness, tingling, weakness or visual problems. No nausea, anorexia or other constitutional symptoms. There has been no foot problems or non healing lesions. The last HAIC was done by clinical social worker. CGM: No. Average blood sugars 125-150 mg%. Checking sugars : approximately twice daily. Medication Types Include: Metformin, GLP-1, Sulfonylureas, SGLT2 inhibitors and Insulin Secondary complications include none. Macro-vascular complications include none. Therapy reviewed regarding diabetic management and include Amaryl, Novolin-70/30 and Ozempic Compliance: good Renal Protection: ARBs Lipid management: statins Urinary microalbumin: A1 . Ophthalmological: has seen eye doctor within the last year. Control: Intermediate Control 7.1 - 8.0 #4. Hx of esophageal reflux currently stable. Hx of Complications: none The severity, duration and intensity of symptoms have improved. Frequency: most meals Treatment consists medications taken on intermittent basis. Current therapy includes Colestipol Hydrochloride and Rabeprazole Sodium. There has been no nausea. No change in he frequency or intensity of symptoms. Has had no melena. Has had no . Discussed use of H2 antagonists and the possibility of trying to reduce the frequency of the use of any PPI inhibitors and try H2 antagonists to see if symptoms can be controlled with lease intensive therapy since a number of complications are associated with chronic prolonged use of PPI inhibitors. Active Medication ListJardiance 25 MG TABLET, FILM COATED One DailyAllopurinol 300 MG (TABLET - ORAL) One Daily For GoutGlucophage 1000 MG One Bid With Meals For Type II DmAmaryl 2 MG (TABLET - ORAL) One BidOzempic 1.34 MG/ML INJECTION, SOLUTION Once WeeklyLosartan Potassium 50 MG TABLET One DailyAtorvastatin Calcium 20 MG (TABLET - ORAL) One DailyNovolin-70/30 70-30 28 Units Twice A DayRabeprazole Sodium 20 MG TABLET, DELAYED RELEASE Once Twice A DayColestipol Hydrochloride 1 G TABLET One Twice A Day Vaccination and Immunization( ) 2023-12 INFLUENZA( ) 2018-12 TDAP( ) 2020-05 COVID MODERNA( ) 2023-12 COVID BOOSTER PFIZER( ) 2020-12 COVID BOOSTER MODERNA Surgical [id number] Lumbar [id number] Esophageal [id number] L4-L5 Microdisectomy Preventative Testing( ) 01/26/2024 Albumin 4.3 G/DL N( ) 01/26/2024 Micro Albumin 0.2 MG/DL N( ) 01/26/2024 HAIC 8.1 % OF TOTAL HGB H( ) 11/14/2022 Upper Endoscopy( ) 11/14/2022 Colonoscopy ( 10 Years ) 11/14/2032( ) 04/21/2016 Ophthalmology Social HistoryDoes not 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 This represents approximately a 3.7% change in weight. Weight change attributable to lifestyle changes. Vital Signs:Blood Pressure: Sitting Rt. Arm 120/72Pulse: Sitting 97 /min and RegularRespiratory Rate: 16Height 82 in or 2.1 mWeight 223 lb or 101.2 kgBMI 23.3Temperature: 97 F or 36.1 CPulse Oximetry: 96 % at rest on no oxygen Chief Complaint: Addressed in HPI Problems or conditions discussed in the HPI were the only ones reviewed during the encounter.Only social and family history addressed in the HPI were reviewed during this encounter. Attendant(s): NoneConstitutional and Systemic Symptoms:none Medication Reconciliation: from medication list. Kkdkeutvysl07/21/2023 colonoscopy negative with the exception for some internal hemorrhoids. Repeat in approximately 10 years11/14/2022: Upper endoscopy reflux esophagitis grade 1. Small hiatus hernia. Nonobstructive ring was noted at the esophageal cardia. A dilatation was performed using 18-20 mm. Mild gastritis in the stomach was noted. Mild duodenitis was also noted in the 2nd portion of the duodenum. 10-02-2023: Ultrasound of the abdomen right upper quadrant pain negative for any significant abnormalities gallbladder was well distended and appears normal with no evidence any gallstones or wall thickening. Bile duct is normal in diameter. Visualization of the pancreas aorta and IVC are all unremarkable 11-10-2023: Hepatobiliary scan negative for any obstructive or other pathology noted of the biliary system. 02-06-2024: CT scan of the abdomen and pelvis with contrast shows bilateral nonobstructing nephrolithiasis. There is mild left hydronephrosis noted. History of Present Illness #1. Complaining of right sacroiliac pain with radiation down the posterior aspect of the right leg down into the calf muscle on some numbness and tingling in the toes. Status post lumbar laminectomy and history of some spinal stenosis. Apparently been doing considerable amount of heavy lifting over the weekend and noticed increasing pain and discomfort. Has been on some ketorolac has shown some improvement. However since the patient is being limited in what he can do physically. Will give a trial of a Medrol Dosepak. Is diabetic and is aware to make adjustments in his medications pending the initiation of the steroids.: Active Medication ListJardiance 25 MG TABLET, FILM COATED One DailyAllopurinol 300 MG (TABLET - ORAL) One Daily For GoutGlucophage 1000 MG One Bid With Meals For Type II DmAmaryl 2 MG (TABLET - ORAL) One BidOzempic 1.34 MG/ML INJECTION, SOLUTION Once WeeklyLosartan Potassium 50 MG TABLET One DailyAtorvastatin Calcium 20 MG (TABLET - ORAL) One DailyNovolin-70/30 70-30 28 Units Twice A DayRabeprazole Sodium 20 MG TABLET, DELAYED RELEASE Once Twice A DayColestipol Hydrochloride 1 G TABLET One Twice A Day Vaccination and ImmunizationImmunizations and Vaccinations Discussed and Implemented if feasible In the Office. Else referred to pharmacies. 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
--- OUTSIDE RECORDS SUMMARY | 2024-10-02 01:11 | XMS_ITS | Clinical Summary ---
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 Active omeprazole (PriLOSEC) 20 mg capsule Active omeprazole (PriLOSEC) 40 mg capsule 4 Active sucralfate (CARAFATE) 1 gram tablet 4 Active acetaminophen (TYLENOL) 325 mg tablet Take 1 tablet (325 mg total) by mouth every 4 (four) hours as needed Active blood-glucose meter miscIndications :Type 2 diabetes mellitus with hyperglycemia, with long-term current use of insulin ([facility]) ACCU CHEK METER USE TO TEST BLOOD SUGARS 3 TIMES DAILY 1 each 4 Active BD Ultra-Fine Mini Pen Needle 31 gauge x 3/16 needleIndicatio ns:Type 2 diabetes mellitus with hyperglycemia, with long-term current use of insulin ([facility]) USE TO INJECT INSULIN TWICE DAILY 180 each [address] (ACIPHEX) 20 mg EC tablet Take 1 tablet (20 mg total) by mouth daily Active losartan (COZAAR) 50 mg tablet Take 1 tablet (50 mg total) by mouth daily Active colestipoL (COLESTID) 1 gram tablet Take 1 tablet (1 g total) by mouth 2 (two) times a day Active allopurinoL (ZYLOPRIM) 300 mg tabletIndicatio ns:Type 2 diabetes mellitus with hyperglycemia, with long-term current use of insulin ([facility]) TAKE 1 TABLET BY MOUTH DAILY 90 tablet 3 5 Active Jardiance 25 mg tabletIndicatio ns:Type 2 diabetes mellitus with hyperglycemia, with long-term current use of insulin ([facility]) TAKE 1 TABLET BY MOUTH DAILY 90 tablet 3 5 Active glimepiride (AMARYL) 2 mg tabletIndicatio ns:Type 2 diabetes mellitus with hyperglycemia, with long-term current use of insulin ([facility]) TAKE 1 TABLET BY MOUTH TWICE DAILY AFTER BREAKFAST AND DINNER 180 tablet 3 5 Active metFORMIN (GLUCOPHAGE) 1,000 mg tabletIndicatio ns:Type 2 diabetes mellitus with hyperglycemia, with long-term current use of insulin ([facility]) TAKE 1 TABLET TWICE DAILY WITH MEALS 180 tablet 5 Active Accu-Chek Guide test strips stripIndication s:Type 2 diabetes mellitus with hyperglycemia, with long-term current use of insulin ([facility]) USE TO TEST BLOOD SUGARS 3 TIMES A DAY. 300 strip 5 Active atorvastatin (LIPITOR) 20 mg tabletIndicatio ns:Type 2 diabetes mellitus with hyperglycemia, with long-term current use of insulin ([facility]) TAKE 1 TABLET BY MOUTH ONCEDAILY 90 tablet 3 5 Active semaglutide (OZEMPIC) 2 mg/dose (8 mg/3 mL) pen injector injection Inject 2 mg under the skin every 7 days 9 mL 3 5 Active insulin NPH-insulin regular 70/30 (NovoLIN 70/30 100 unit/mL) 100 unit/mL pen for injectionIndica tions:Type 2 diabetes mellitus with hyperglycemia, with long-term current use of insulin ([facility]) Inject 32 Units under the skin 2 (two) times a day 60 mL 3 5 Active Active Problems Problem Noted Date Diagnosed Date Lumbar radiculopathy 04/24/2023 Status post lumbar microdiscectomy 11/03/2021 Assessment & Plan (07/12/2022 3:27 PM CDT): Mr. Magdaleno is clinically improved after right L5 microdiskectomy. He is a chronic footdrop on the left which is longstanding. His anterior thigh symptoms have continued to improve over time. He reports that all of his symptoms are tolerable at the moment. We will not set up a scheduled appointment, but I would be happy to see him back at any point on an as-needed basis. Assessment & Plan (03/02/2022 3:03 PM UNIFORM ATTENDANT): Mr. Magdaleno's back pain and left lower extremity pain have resolved. He does have some right quadriceps tightness. Instructed the patient to continue exercises for strengthening of his lower extremities. Patient does not have any specific back pain or radicular symptoms of his lower extremities. Will have the patient follow up with us on an as-needed basis. Assessment & Plan (11/03/2021 10:11 AM CDT): Mr. Rodriguezs back pain and leg pain have resolved. He is quite pleased with his progress. He does have some slight weakness of his left foot with dorsiflexion. Advised the patient start physical therapy and will continue to monitor. PLAN: - Start physical therapy/aqua therapy/home exercise program WORK STATUS: (IT) - RETURN TO WORK: No restrictions FOLLOW UP APPT: With Dr. Novoa in 4 months no films. Preop MRI CD returned to the patient. Intervertebral disc disorder with radiculopathy of lumbar region 08/05/2021 Assessment & Plan (03/29/2023 2:59 PM UNIFORM ATTENDANT): Mr. Magdaleno clinically has a right S1 radiculopathy. He is status post L4-5 microdiskectomy on the left. He had very good results with this. In reviewing his prior MRI he had a disc bulge at L5-S1 on the right with some compression in the nerve root. We will get a new MRI to evaluate for S1 nerve root compression. He has seen Dr. Mantilla in the past from pain management for injections and will call him for and L5-S1 injection. We will speak to him by phone about the results of the MRI and further recommendations. He is aware of my change in practice in April and I have given him the number to my new practice for continuity of care. In the transition, if I am not able to accept his insurance we discussed that I will work to get one of my partners to assist in his care. Assessment & Plan (03/15/2022 3:32 PM UNIFORM ATTENDANT): Mr. Magdaleno has symptoms that correlate to the right L4 and L5 distributions with persistent symptoms in the right L5 distribution. His prior MRI from July showed L5-S1 compression on the right and L3-4 and L4-5 compression on the left that do not correspond to this. We discussed all options including observation, medications, injections and surgery. We will proceed from last a more invasive. I will call him in a script for Medrol Dosepak. If his symptoms persist, he will call the office and we will arrange for him to undergo evaluation by pain management with possible L4-5 injection. I plan to see him back in 4 months for re-evaluation with no new films at that time. Assessment & Plan (08/05/2021 3:29 PM CDT): Mr. 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 He has some lateral recess stenosis at L3-4 and L4-5 on the left. The L4-5 level seems symptomatic with a significant footdrop. I have offered him surgery in the form of left L4-5 microdiskectomy. We discussed that any decompression at the L3-4 level would likely require a fusion which could be problematic at his young age. He is aware that he likely has multiple lumbar surgeries including fusion in the future given the congenital stenosis and degenerative changes that are already present. Hyperlipidemia associated with type 2 diabetes rhoda xiong 08/02/2017 Assessment & Plan (08/27/2024 2:55 PM CDT): Chronic problem. On statin therapy, no changes. Assessment & Plan (10/02/2023 4:02 PM CDT): Chronic, stable. Continue statin therapy with atorvastatin. Update lipid profile. Assessment & Plan (02/27/2023 4:36 PM UNIFORM ATTENDANT): Chronic, well-controlled Continue regimen continue statin therapy with atorvastatin Assessment & Plan (06/29/2022 2:55 PM CDT): Chronic problem. On statin therapy, no changes. Assessment & Plan (12/20/2021 4:22 PM CDT): Chronic, well controlled Low fat Low cholesterol diet Exercise Continue statin therapy Assessment & Plan (08/09/2021 4:24 PM CDT): Chronic, well controlled Low fat Low cholesterol diet Exercise Continue statin therapy check lipid profile Assessment & Plan (02/08/2021 4:08 PM UNIFORM ATTENDANT): Will get report of lipid profile done recently Continue Atorvastastin Assessment & Plan (03/16/2020 3:41 PM UNIFORM ATTENDANT): Goal of treatment , LDL cholesterol less than 100 ( less than 70 in patients with history of heart attacks and / or strokes ) NonHDL cholesterol ( total cholesterol minus HDL cholesterol ) goal less than 130 ( less than 100 in patients with history of heart attacks and / or strokes ) Low cholesterol, low fat diet was discussed and advised. Daily exercise On statin therapy Assessment & Plan (09/09/2019 5:02 PM CDT): Goal of treatment , LDL cholesterol less than 100 ( less than 70 in patients with history of heart attacks and / or strokes ) NonHDL cholesterol ( total cholesterol minus HDL cholesterol ) goal less than 130 ( less than 100 in patients with history of heart attacks and / or strokes ) Low cholesterol, low fat diet was discussed and advised. Daily exercise On statin therapy with Lipitor Assessment & Plan (03/04/2019 4:08 PM UNIFORM ATTENDANT): Goal of treatment , LDL cholesterol less than 100 ( less than 70 in patients with history of heart attacks and / or strokes ) NonHDL cholesterol ( total cholesterol minus HDL cholesterol ) goal less than 130 ( less than 100 in patients with history of heart attacks and / or strokes ) Low cholesterol, low fat diet was discussed and advised. Daily exercise On statin therapy Assessment & Plan (08/27/2018 4:49 PM CDT): Goal of treatment , LDL cholesterol less than 100 ( less than 70 in patients with history of heart attacks and / or strokes ) NonHDL cholesterol ( total cholesterol minus HDL cholesterol ) goal less than 130 ( less than 100 in patients with history of heart attacks and / or strokes ) Low cholesterol, low fat diet was discussed and advised. Daily exercise On statin therapy Assessment & Plan (02/12/2018 3:38 PM UNIFORM ATTENDANT): Goal of treatment , LDL cholesterol less than 100 ( less than 70 in patients with history of heart attacks and / or strokes ) NonHDL cholesterol ( total cholesterol minus HDL cholesterol ) goal less than 130 ( less than 100 in patients with history of heart attacks and / or strokes ) Low cholesterol, low fat diet was discussed and advised. Daily exercise On statin therapy Assessment & Plan (08/02/2017 3:56 PM CDT): Goal of treatment , LDL cholesterol less than 100 ( less than 70 in patients with history of heart attacks and / or strokes ) NonHDL cholesterol ( total cholesterol minus HDL cholesterol ) goal less than 130 ( less than 100 in patients with history of heart attacks and / or strokes ) Low cholesterol, low fat diet was discussed and advised. Daily exercise On statin therapy Type 2 diabetes mellitus wit h hyperglycemia, with long-term current use of insulin 06/17/2013 Overview (07/01/2016): DMII WO CMP UNCNTRLD Assessment & Plan (08/27/2024 2:56 PM CDT): Chronic problem, overall stable. Notices his sugars are higher on Ozempic compared to other GLP1a, but he tolerates it well. Increase to 2 mg weekly. Continue metformin, Jardiance, glimepiride, and 70/30. Update routine labs. Assessment & Plan (04/12/2024 3:53 PM UNIFORM ATTENDANT): Chronic, not at goal Importance of diet and exercise discussed Will try to switch from Trulicity to Ozempic to see if it helps better with weight loss and glucose control I provided the patient with 2 samples of Ozempic pens. Instructed to start 0.25 mg weekly for 4 weeks and then increase to 0.5 mg weekly The patient to stop it in case of severe abdominal pain, nausea and vomiting Also increase glimepiride to 4 mg twice a day Continue insulin 70 30 same dose and metformin as well as Jardiance Assessment & Plan (10/02/2023 4:02 PM CDT): Chronic, well-controlled. Importance of diet and exercise was discussed. Continue current regimen including Novolin 70 30, 26 units b.i.d., Trulicity 4.5 mg weekly, glimepiride 2 mg daily and metformin a 1000 mg twice a day Assessment & Plan (02/27/2023 4:35 PM UNIFORM ATTENDANT): Hba1c was Lab Results Component Value Date HGBA1C 7.5 02/27/2023 today, indicating that up DM control Goal Hba1c under 7 and blood glucose level in the 120-160 range was explained Low carb diet and daily aerobic and /or resistant exercise were advised Prevention and treatment of hyypoglcyemia were discussed with the patient Blood glucose monitoring : Fingersticks twice a day. Patient not interested in CGM Adjustment to medications: Go back to Trulicity 455 mg week Continue current insulin regimen with Humalog 7525 twice a day Continue Jardiance and metformin and glimepiride Assessment & Plan (06/29/2022 2:56 PM CDT): Chronic stable problem. We discussed changing out Trulicity for Long, he just refilled 3 month supply of Trulicity. Will let us know when gets close to refill if he wants to change. Discussed lowering insulin if any hypoglycemia once on Geoffreyunjocelyn. Update routine labs. Assessment & Plan (12/20/2021 4:22 PM CDT): Hba1c was Lab Results Component Value Date HGBA1C 7.4 12/20/2021 today, indicating inadquate DM control Goal Hba1c and blood glucose explained Diet and exercise were advised Prevention and treatment of hyypoglcyemia were discussed with the patient Blood glucose monitoring : B.i.d. Adjustment to medications: Increase Trulicity to 4.5 mg weekly Continue metformin, Jardiance, glimepiride and Humalog 75/25 Assessment & Plan (08/09/2021 4:24 PM CDT): Hba1c was Lab Results Component Value Date HGBA1C 6.9 08/09/2021 today, indicating adequate DM control Goal Hba1c and blood glucose explained Diet and exercise were advised Prevention and treatment of hyypoglcyemia were discussed with the patient Blood glucose monitoring : 2 x day Adjustment to medications: Continue curren t Assessment & Plan (02/08/2021 4:07 PM UNIFORM ATTENDANT): Hba1c was Lab Results Component Value Date HGBA1C 7.8 02/08/2021 today, indicating suboptimal DM control Goal blood glucose levels : 90-130 Target Hba1c : 6.5 - 7 .0 BG monitoring : 2-3 x day Prevention and treatment of hyypoglcyemia discussed. Insulin regimen adjustments: Continue current Increase Jardiance to 25 mg daily Increase Trulicity, 4.5 mg weekly Oral medication adjustments: Assessment & Plan (03/16/2020 3:41 PM UNIFORM ATTENDANT): Hba1c was Lab Results Component Value Date HGBA1C 8.2 03/16/2020 today, indicating Inadequate DM control Goal blood sugars in the 120-150 range , with Hb1c under 7.0 % was explained 1800 calorie, consistent carb diet recommended. No more than 30-45 grams of carbs per meal recommended, as well as avoiding high concentrated sweet drinks . 25-45 min daily exercise, combining both aerobic and resistance exercise recommended. The need to monitor blood glucose before meals and bedtime was discussed. Prevention and treatment of hyypoglcyemia discussed. Increase Trulicity to 3.0 mg weekly Assessment & Plan (09/09/2019 5:03 PM CDT): Hba1c was Lab Results Component Value Date HGBA1C 7.6 09/09/2019 today, indicating Sub-optimal DM control 1800 calorie, consistent carb diet recommended. No more than 30-45 grams of carbs per meal recommended, as well as avoiding high concentrated sweet drinks . 25-45 min daily exercise, combining both aerobic and resistance exercise recommended. The need to monitor blood glucose before meals and bedtime was discussed. Prevention and treatment of hyypoglcyemia discussed. Continue current regimen Assessment & Plan (03/04/2019 4:08 PM UNIFORM ATTENDANT): Hba1c was Lab Results Component Value Date HGBA1C 7.3 03/04/2019 today, indicating sub-optimal DM control 1800 calorie, consistent carb diet recommended, no more than 3-45 grams of carbs per meal, avoiding concentrated sweet drinks and rapid absorption carbs. 25-45 min daily aerobic and resistance exercise recommended Prevention and treatment of hyypoglcyemia discussed. Blood glucose monitoring with fingers sticks.2-3 x day Medications: Continue current regimen Assessment & Plan (08/27/2018 4:49 PM CDT): Hba1c was Lab Results Component Value Date HGBA1C 7.6 08/27/2018 today, indicating adequate DM control 1800 calorie, consistent carb diet recommended 25-45 min daily exercise, combining both aerobic and resistance exercise recommended. The need to monitor blood glucose before meals and bedtime was discussed. Dose of basal and prandial insulin adjusted as follows: Continue current insulin regimen, along with Trulicity and oral agents. Prevention and treatment of hyypoglcyemia discussed. Assessment & Plan (02/12/2018 3:37 PM UNIFORM ATTENDANT): Hba1c was Lab Results Component Value Date HGBA1C 7.1 02/12/2018 today, indicating ... DM control 1800 calorie, consistent carb diet recommended 25-45 min daily exercise, combining both aerobic and resistance exercise recommended. The need to monitor blood glucose before meals and bedtime was discussed. Continue current insulin regimen Prevention and treatment of hyypoglcyemia discussed. Assessment & Plan (08/02/2017 4:36 PM CDT): Your Hba1c today was: Lab Results Component Value Date HGBA1C 8.1 08/02/2017 meaning a 3 month average sugar of : 184 Your goal hba1c is under 7.0 to prevent custodial diabetes complications ( eye , kidney and nerve damage ) . Your goal sugars are in the 90-130 range Daily aerobic ( walking, riding a bike, swimming ) and resistance exercises ( light weight lifting, resistance band stretching ) for at least 30 minutes is recommended If you can not walk, chair exercises is very acceptable. As little as 15-20 minutes exercise , in one or two sessions a day, is still very helpful and will help to improve your diabetes control . Eat small portion meals, no more than 1800 calories Diet Try to eat not more than than 2-3 servings of carbs ( starches ) wiith your meals. Avoid soft drinks, including regular sodas , fruit juices and sweetened tea. Drink water instead. Eat plenty of green and leafy vegetables, including salads. Take your medications regularly,including your insulin injections. Monitor your sugar levels with finger sticks regularly and keep a log sheet or book. Bring your sugar meter and /or a log book or log sheet to every office visit. Start Tima. Assessment & Plan (01/30/2017 3:51 PM UNIFORM ATTENDANT): Hba1c was 7.5 today, indicating suboptimal DM control 1800 calorie, consistent carb diet recommended 30 min daily exercise, combining both aerobic and resistance exercise is strongly recommended and needed as part of diabetes management plan. The need to monitor blood glucose before meals and bedtime was discussed. Take prandial insulin before meals based on carb intake and blood glucose readings. Prevention and treatment of hyypoglcyemia discussed. Resolved Problems Problem Noted Date Diagnosed Date Resolved Date Hypertension associated with type 2 diabetes mellitus 08/27/2024 08/27/2024 Encounters Date Type Department Care Team Description 09/03/2024 Results Follow-Up [facility] [address] [phone] Marialuisa Ayon PA Comprehensive metabolic panel, Lipid panel, Albumin Creatinine Ratio, Urine 08/27/2024 2:30 PM CDT Office Visit [facility] [address] [phone] Marialuisa Ayon PA Type 2 diabetes mellitus with hyperglycemia, with long-term current use of insulin (HCC) (Primary Dx); Hyperlipidemia associated with type 2 diabetes mellitus (HCC) from Last 3 Months Immunizations Immunization Administration Dates Next Due Influenza Virus Vaccine Trivalent Mdv 01/08/2021 Influenza, Quadrivalent, Spl it, Intramuscular 01/05/2015 Influenza, Quadrivalent, Spl it, Preservative Free, Intramuscular 01/10/2020 Influenza, Trivalent, IM (MDV) 02/17/2014 Pfizer SARS-CoV-2 Monovalent Vaccination (12+ Yrs) PURPLE 01/17/2021,06/02/2020,04/29/2020 Tdap 01/02/2019 Surgical History Surgery Date Site/Laterality Comments CARDIAC CATHETERIZATION normal coronaries LITHOTRIPSY MICRODISCECTOMY LUMBAR 09/23/2021 S/P L4-5 Left microdiscectomy Medical History Medical History Date Comments Gout History of nephrolithiasis Diabetes mellitus (HCC) Dyslipidemia Obesity BMI 33 Lumbar radiculopathy Family History Medical History Relation Name Comments Diabetes Father Hypertension Mother Relation Name Status Comments Father Mother Social History Tobacco Use Types Packs/Day Years [...] on file Legal Sex Male 11:20 AM UNIFORM ATTENDANT Gender Identity Not on file Sexual Orientation Straight 04/12/2024 3: 24 PM UNIFORM ATTENDANT Obstetrics History Last Filed Vital Signs Vital Sign Reading Time Taken Comments Blood Pressure 122/70 08/27/2024 2:34 PM CDT Pulse 91 08/27/2024 2:34 PM CDT Temperature 36.5 C (97.7 F) 09/23/2021 2:55 PM CDT Respiratory Rate 17 04/12/2024 3:33 PM UNIFORM ATTENDANT Oxygen Saturation 100% 04/26/2023 1:55 PM UNIFORM ATTENDANT Inhaled Oxygen Concentration - - Weight 103.9 kg (229 lb) 08/27/2024 2:34 PM CDT Height 182.9 cm (6') 08/27/2024 2:34 PM CDT Body Mass Index 31.06 08/27/2024 2:34 PM CDT Plan of Treatment Health Maintenance Due Date Last Done Comments Hepatitis C Screening 1984 Varicella Vaccines (1 of 2 - 13+ 2-dose series) 1997 Hepatitis B Screening 2002 Regular Well Visit/Exam 18-64 2002 Pneumococcal vaccine <65 (1 of 2 - PCV) 2003 Covid-19 Vaccine ( season) 2023 01/17/2021, 01/17/2021, 06/02/2020, Additional history exists Influenza Vaccine (#1) 2024 , 01/10/2023, 12/13/2022, Additional history exists Hemoglobin A1C 02/26/2025 08/27/2024, 03/27, 10/02/2023, Additional history exists Depression Screening 04/12/2025 04/12/2024, 10/02/2023, 12/20/2021, Additional history exists Dilated Eye Exam 06/05/2025 06/05/2024, 10/2023, 05/25/2021, Additional history exists Foot Exam 08/27/2025 08/27/2024, 06/2022, 12/20/2021, Additional history exists Albumin Creatinine Ratio, Urine 08/30/2025 08/30/2024, 10/06/2023, 08/20/2022, Additional history exists Lipid Panel 08/30/2025 08/30/2024, 09/24, 08/20/2022, Additional history exists eGFR 08/30/2025 08/30/2024, 09/24, 04/26/2023, Additional history exists DTaP/Tdap/Td Vaccine (2 - Td or Tdap) 01/02/2029 01/02/2019 HPV Vaccines Aged Out No longer eligi ble based on patient's age to complete this topic Procedures Procedure Name Priority Date/Time Associated Diagnosis Comments ALBUMIN CREATININE RATIO, URINE Routine 08/30/2024 8:12 AM CDT Type 2 diabetes mellitus with hyperglycemia, with long-term current use of insulin (HCC) LIPID PANEL Routine 08/30/2024 8:12 AM CDT Type 2 diabetes mellitus with hyperglycemia, with long-term current use of insulin (HCC) COMPREHENSIVE METABOLIC PANEL Routine 08/30/2024 8:12 AM CDT Type 2 diabetes mellitus with hyperglycemia, with long-term current use of insulin (HCC) POCT HEMOGLOBIN A1C Routine 08/27/2024 2 :37 PM CDT Type 2 diabetes mellitus with hyperglycemia, with long-term current use of insulin (HCC) POCT GLUCOSE Routine 08/27/2024 2:37 PM CDT Type 2 diabetes mellitus with hyperglycemia, with long-term current use of insulin (HCC) HM DIABETES EYE EXAM Routine 06/05/2024 from Last 3 Months or Most Recently Relevant to Health Maintenance Results * Albumin Creatinine Ratio, Urine (08/30/2024 8:12 AM CDT) Creatinine, ur 121 20 - 320 mg/dL [facility] Microalbumin, ur 0.5 See Note: mg/dL [facility] Comment: Reference Range: Reference Range Not established Microalbumin/creat ratio 4 <30 mg/g creat [facility] Comment: The ADA defines abnormalities in albumin excretion as follows: Albuminuria Category Result (mg/g creatinine) Normal to Mildly increased <30 Moderately increased 30-299 Severely increased > OR = 300 The ADA recommends that at least two of three specimens collected within a 3-6 month period be abnormal before considering a patient to be within a diagnostic category. Urine 08/30/2024 8:12 AM CDT 08/30/2024 8:13 AM CDT Narrative [facility] - 08/31/2024 3:23 AM CDT FASTING:YES FASTING: YES us Marialuisa ORTEGA LAB URINE ORDERABLES Fi nal Result [facility] [id number] [place] [phone] * (ABNORMAL) Lipid panel (08/30/2024 8:12 AM CDT) Cholesterol 127 <200 mg/dL [facility] HDL 39(L) > OR = 40 mg/dL Daniel [email or web address] [facility]na Triglycerides 72 <150 mg/dL Daniel Chan LDL 73 mg/dL (calc) Daniel Chan Comment: Reference range: <100 Desirable range <100 mg/dL for primary prevention; <70 mg/dL for patients with CHD or diabetic patients with > or = 2 CHD risk factors. LDL-C is now calculated using the Lisandro calculation, which is a validated novel method providing better accuracy than the Friedewald equation in the estimation of LDL-C. Damián RIVERS et al. SARA. 2013;310(19): 2970-8376 (http://education.[employer] [place]/faq/DRH352) Chol/HDL ratio 3.3 <5.0 (calc) Daniel Chan Non-HDL, (LDL+VLDL) 88 <130 mg/dL (calc) Daniel Chan Comment: For patients with diabetes plus 1 major ASCVD risk factor, treating to a non-HDL-C goal of <100 mg/dL (LDL-C of <70 mg/dL) is considered a therapeutic option. Blood 08/30/2024 8:12 AM CDT 08/30/2024 8:13 AM CDT Narrative [facility] - 08/31/2024 3:23 AM CDT FASTING:YES FASTING: YES us Marialuisa ORTEGA LAB BLOOD ORDERABLES Fi nal Result [facility] [address] [place] [address] * (ABNORMAL) Comprehensive metabolic panel (08/30/2024 8:12 AM CDT) Glucose 149(H) 65 - 99 mg/dL Daniel Chan Comment: Fasting reference interval For someone without known diabetes, a glucose value >125 mg/dL indicates that they may have diabetes and this should be confirmed with a follow-up test. BUN 13 7 - 25 mg/dL Daniel Chan Creatinine 0.72 0.60 - 1.29 mg/dL Daniel Chan eGFR 118 > OR = 60 mL/min/1.7 3m2 Daniel Chan BUN/creat ratio SEE NOTE: 6 - 22 (calc) CloudCrowd-Pasquale Chna Comment: Not Reported: BUN and Creatinine are within reference range. Sodium 135 135 - 146 mmol/L Daniel HollinsChipVision DesignPasquale Chan Potassium, pl 4.1 3.5 - 5.3 mmol/L [facility]-Pasquale Chan Chloride 100 98 - 110 mmol/L Daniel Hollins-Pasquale Chan CO2 30 20 - 32 mmol/L Daniel Hollins-Pasquale Chan Calcium 9.0 8.6 - 10.3 mg/dL Daniel Hollins-Pasquale Chan Protein, sr 6.5 6.1 - 8.1 g/dL Daniel Hollins-Pasquale Chan Albumin 4.2 3.6 - 5.1 g/dL Daniel Hollins-Pasquale Chan GLOBULIN 2.3 1.9 - 3.7 g/dL (calc) Daniel Hollins-Pasquale Chan Alb/glob ratio 1.8 1.0 - 2.5 (calc) Daniel Write.my-Pasquale Chan Bilirubin, total 0.7 0.2 - 1.2 mg/dL Daniel Write.myPasquale Chan Alk phos 59 36 - 130 U/L Daniel Hollins-Pasquale Chan AST 13 10 - 40 U/L Daniel Write.my-Pasquale Chan ALT (SGPT) 12 9 - 46 U/L CloudCrowd-Pasquale Chan Blood 08/30/2024 8:12 AM CDT 08/30/2024 8:13 AM CDT Narrative [facility] - 08/31/2024 3:23 AM CDT FASTING:YES FASTING: YES Marialuisa ORTEGA LAB BLOOD ORDERABLES Fi nal Result [facility] [address] [place] [address] * (ABNORMAL) POCT hemoglobin A1c (08/27/2024 2:37 PM CDT) Hemoglobin A1C, POC 7.5(A) 4.0 - 5.6 % Capillary blood 08/27/2024 2 :37 PM CDT Result [facility] Marialuisa ORTEGA POINT OF CARE TEST ORDE RABLES Final Result * POCT glucose (08/27/2024 2:37 PM CDT) Glucose Blood, POC 201 Normal Fasting 70 - 100, Random <200 mg/dL Blood 08/27/2024 2:37 PM CDT Marialuisa ORTEGA POINT OF CARE TEST ORDE RABLES Final Result * DIABETES EYE EXAM (06/05/2024) 06/05/2024 Historical Provider HEALTH MAINTENANCE Edited Result - Final from Last 3 Months or Most Recently Relevant to Health Maintenance Insurance PENDING SALE TO [facility] Care Teams Radiation / Chemistry Technician Relationship Specialty Start Date End Date Dl Johns MD [facility] - General 06/24/16
--- OUTSIDE RECORDS SUMMARY | 2024-10-02 01:11 | XMS_ITS | Clinical Summary ---
Author Organization [facility] Address [address] [place] [address] Phone Care Team Providers Care Bead Worker Sewing Name Role Phone Dl Johns MD Primary Care Provider [phone] Allergies No known active allergies Medications allopurinoL (ZYLOPRIM) 300 mg tablet Take 300 mg by mouth daily. Active omeprazole (PriLOSEC) 20 mg Capsule, Delayed Release(E.C.) Take 20 mg by mouth daily. Active gabapentin (NEURONTIN) 100 mg capsule Take 100 mg by mouth 3 times daily. Active acetaminophen (TYLENOL) 325 mg tablet Take 325 mg by mouth every 4 hours as needed. Active metFORMIN (GLUCOPHAGE) 1,000 mg tablet Take 1,000 mg by mouth 2 times daily with meals. Active glimepiride (AMARYL) 2 mg tablet Take 2 mg by mouth daily with breakfast. Active empagliflozin (JARDIANCE) 25 mg tablet Take by mouth daily in the morning. Active insulin lispro protamine-lispr o (HumaLOG MIX 75-25) 100 unit/mL (75-25) vial Inject by subcutaneous injection. Active dulaglutide (Trulicity) 4.5 mg/0.5 mL injection Inject 4.5 mg by subcutaneous injection. Active atorvastatin (LIPITOR) 20 mg tablet Take 20 mg by mouth daily. Active Active Problems Problem Noted Date Diagnosed Date Diabetes type 2, controlled 07/06/2023 Gout, unspecified 07/06/2023 High cholesterol 07/06/2023 Back pain 07/06/2023 Kidney stones 07/06/2023 Lumbar radiculopathy 07/06/2023 Immunizations Immunization Administration Dates Next Due Influenza Seasonal Unspecified Formulation IM Family History Relation Name Status Comments Father Alive Mother Alive Social History Tobacco Use Types Packs/Day Years Used Date Smoking Tobacco: Never Smokeless Tobacco: Never Tobacco Cessation:Counseling Given: Not Answered Alcohol Use Standard Drinks/Week Comments Yes 0 (1 standard drink = 0.6 oz pur e alcohol) sometimes Sex and Gender Information Value Date Recorded Sex Assigned at Not on file Legal Sex Male 11:41 AM CDT Gender Identity Not on file Sexual Orientation Not on file Last Filed Vital Signs Vital Sign Reading Time Taken Comments Blood Pressure 140/80 07/06/2023 2:38 PM CDT Pulse 82 07/06/2023 2:38 PM CDT Temperature 36.6 C (97.8 F) 07/06/2023 2:38 PM CDT Respiratory Rate 16 07/06/2023 2:38 PM CDT Oxygen Saturation 99% 07/06/2023 2:38 PM CDT Inhaled Oxygen Concentration - - Weight 106.8 kg (235 lb 8 oz) 07/06/2023 2:38 PM CDT Height 182.9 cm (6') 07/06/2023 2:38 PM CDT Body Mass Index 31.94 07/06/2023 2:38 PM CDT Plan of Treatment Health Maintenance Due Date Last Done Comments DIABETES ANNUAL RETINAL EXAM 2002 DIABETES MICROALBUMIN ANNUAL SCREEN 2002 LDL CHOLESTEROL ANNUAL 2002 HEPATITIS B VACCINES (1 of 3 - 19+ 3-dose series) 2003 DIABETES HBA1C Q 6 MONTHS 08/29/2023 02/27/2023 DIABETES ANNUAL FOOT EXAM 02/28/2024 02/27/2023 INFLUENZA VACCINE (#1) 2024 , 01/05/2022, 01/08/2021, Additional history exists DTAP/TDAP/TD VACCINES (2 - Td or Tdap) 01/02/2029 01/02/2019 HPV VACCINES Aged Out No longer eligi ble based on patient's age to complete this topic [place] [id number] Care Teams Bead Worker Sewing Relationship Specialty Start Date End Date Dl Johns MD [address] [address] PCP - General Internal Medicine 07/06/23
--- OUTSIDE RECORDS SUMMARY | 2024-10-02 01:11 | XMS_ITS | Encounter Summary ---
Author Organization [facility] Health Address [address] [place] [address] Care Team Providers Care Clinical Assoc Name Role Phone Unavailable Primary Care Provider Unavailabl e Encounter Details Date Type Department Care Team (Late st Contact Info) Description 02/27/2024 Lab Requisition [facility] - DermPath Lab [address] [place] [id number] Mika Lan MD [address] [place] [address] Social History Tobacco Use Types Packs/Day Years Used Date Smoking Tobacco: Never Smokeless Tobacco: Never Alcohol Use Standard Drinks/Week Comments Yes 0 (1 standard drink = 0.6 oz pur e alcohol) RARELY Sex and Gender Information Value Date Recorded Sex Assigned at Not on file Legal Sex Male 9:04 AM INTERACTIVE DESIGNER Gender Identity Not on file Sexual Orientation Not on file 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 Not on file Not on file documented as of this encounter Plan of Treatment Not on file documented as of this encounter Procedures Procedure Name Priority Date/Time Associated Diagnosis Comments DERMATOPATHOLOGY Routine 02/26/2024 12:0 0 AM INTERACTIVE DESIGNER documented in this encounter Results * DERMATOPATHOLOGY (02/26/2024 12:00 AM INTERACTIVE DESIGNER) Case Report Dermatopathology Report Case: [id number] Authorizing Provider: Mika Lan MD Collected: 02/26/2024 12:00 AM Ordering Location: [facility] - Received: 02/27/2024 07:25 AM DermPath Lab Pathologist: Danii Odell MD Specimen: Skin, left shoulder 4:31 PM [facility] DERMATOPATHOLOGY LABORATORY Final Diagnosis Specimen A. 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 The specimen consists of a punch biopsy measuring 2x2x7 mm. Jar 0. 4:31 PM [facility] DERMATOPATHOLOGY LABORATORY Microscopic Description Specimen A. SKIN, left shoulder: There are plump fibroblasts and collagen bundles oriented parallel to the skin surface. There is focal eosinophilic collagen. The hematoxylin and eosin stain is reviewed; immunohistochemical stains are performed for further diagnosis. SMA has tram-track staining from the proliferation. Desmin stains normal background smooth muscle fibers. SOX-10 fails to highlight the majority of the spindle cells. CD34 is negative. Factor XIIIa has faint patchy positivity. Additional deeper sections were obtained and reviewed. 4:31 PM [facility] DERMATOPATHOLOGY LABORATORY Disclaimer An external and internal positive and negative controls are appropriate for the histochemical, immunohistochemical and immunofluorescence stain(s) in this case (if any), except where stated explicitly. The performance characteristics of the stain(s) cited in this report were developed and its performance characteristic determined by the Dermatopathology Laboratory at [facility], directed by Dr. Kristine Watson. These tests need not be, and therefore are not, approved by the [place] Food and Drug Administration. The tests are used for clinical purposes. Billing Codes Specimen Charges Stain Charges 63321 1 [id number] 1 1 1 1 1 4:31 PM [facility] DERMATOPATHOLOGY LABORATORY Embedded Images 4:31 PM [facility] DERMATOPATHOLOGY LABORATORY Pathology/Cytolog y TISSUE SPECIMEN FROM SKIN / Unknown 02/26/2024 02/27/2024 7:25 AM [facility] Mika Lan MD LAB - PATHOLOGY/CYTOLOGY ORDERAB LES Final Result DERMATOPATHOLOGY LABORATORY [facility] - Department of Dermatology [facility] [address] [place] [address], [address] [phone] documented in this encounter Visit Diagnoses Not on filedocumented in this encounter
--- OUTSIDE RECORDS SUMMARY | 2024-10-02 01:11 | XMS_ITS | Referral Summary ---
Author Organization [facility] [address] [place] [phone] Care Team Providers Care Field Crop Farmworker Name Role Phone Dl Johns MD Primary Care Provider Encounters Date Type Department Care Team Description 09/03/2024 Results Follow-Up [facility] of [address] [address] Marialuisa Ayon PA Comprehensive metabolic panel, Lipid panel, Albumin Creatinine Ratio, Urine 08/27/2024 2:30 PM CDT Office Visit [facility] [address] [address] Marialuisa Ayon PA Type 2 diabetes mellitus with hyperglycemia, with long-term current use of insulin (HCC) (Primary Dx); Hyperlipidemia associated with type 2 diabetes mellitus (HCC) from Last 3 Months Allergies No known active allergies Medications omeprazole 20 mg tablet,delayed release (DR/EC) Take 1 tablet (20 mg total) by mouth geothermal plant 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 before breakfast Active omeprazole (PriLOSEC) 20 mg capsule Active omeprazole (PriLOSEC) 40 mg capsule 4 Active sucralfate (CARAFATE) 1 gram tablet 4 Active acetaminophen (TYLENOL) 325 mg tablet Take 1 tablet (325 mg total) by mouth every 4 (four) hours as needed Active blood-glucose meter miscIndications :Type 2 diabetes mellitus with hyperglycemia, with long-term current use of insulin ([facility]) ACCU CHEK METER USE TO TEST BLOOD SUGARS 3 TIMES DAILY 1 each 4 Active BD Ultra-Fine Mini Pen Needle 31 gauge x 06/09 needleIndicatio ns:Type 2 diabetes mellitus with hyperglycemia, with long-term current use of insulin ([facility]) USE TO INJECT INSULIN TWICE DAILY 180 [...] hyperglycemia, with long-term current use of insulin ([facility]) TAKE 1 TABLET BY MOUTH DAILY 90 tablet 3 5 Active Jardiance 25 mg tabletIndicatio ns:Type 2 diabetes mellitus with hyperglycemia, with long-term current use of insulin ([facility]) TAKE 1 TABLET BY MOUTH DAILY 90 tablet 3 5 Active glimepiride (AMARYL) 2 mg tabletIndicatio ns:Type 2 diabetes mellitus with hyperglycemia, with long-term current use of insulin ([facility]) TAKE 1 TABLET BY MOUTH TWICE DAILY AFTER BREAKFAST AND DINNER 180 tablet 3 5 Active metFORMIN (GLUCOPHAGE) 1,000 mg tabletIndicatio ns:Type 2 diabetes mellitus with hyperglycemia, with long-term current use of insulin ([facility]) TAKE 1 TABLET TWICE DAILY WITH MEALS 180 tablet 5 Active Accu-Chek Guide test strips stripIndication s:Type 2 diabetes mellitus with hyperglycemia, with long-term current use of insulin ([facility]) USE TO TEST BLOOD SUGARS 3 TIMES A DAY. 300 strip 5 Active atorvastatin (LIPITOR) 20 mg tabletIndicatio ns:Type 2 diabetes mellitus with hyperglycemia, with long-term current use of insulin ([facility]) TAKE 1 TABLET BY MOUTH ONCEDAILY 90 tablet 3 5 Active semaglutide (OZEMPIC) 2 mg/dose (8 mg/3 mL) pen injector injection Inject 2 mg under the skin every 7 days 9 mL 3 5 Active insulin NPH-insulin regular 70/30 (NovoLIN 70/30 100 unit/mL) 100 unit/mL pen for injectionIndica tions:Type 2 diabetes mellitus with hyperglycemia, with long-term current use of insulin (HCC) Inject 32 Units under the skin 2 [...] basis. Assessment & Plan (03/02/2022 3:03 PM CHIEF LOCK OPERATOR): Mr. Magdaleno's back pain and left lower [...] & Plan (11/03/2021 10:11 AM CDT): Mr. Magdaleno's back pain and leg pain have resolved. [...] 08/05/2021 Assessment & Plan (03/29/2023 2:59 PM CHIEF LOCK OPERATOR): Mr. Magdaleno clinically has a right S1 [...] care. Assessment & Plan (03/15/2022 3:32 PM CHIEF LOCK OPERATOR): Mr. Magdaleno has symptoms that correlate to [...] profile. Assessment & Plan (02/27/2023 4:36 PM CHIEF LOCK OPERATOR): Chronic, well-controlled Continue regimen continue statin therapy [...] profile Assessment & Plan (02/08/2021 4:08 PM CHIEF LOCK OPERATOR): Will get report of lipid profile done recently Continue Atorvastastin Assessment & Plan (03/16/2020 3:41 PM CHIEF LOCK OPERATOR): Goal of treatment , LDL cholesterol less [...] Lipitor Assessment & Plan (03/04/2019 4:08 PM CHIEF LOCK OPERATOR): Goal of treatment , LDL cholesterol less [...] therapy Assessment & Plan (02/12/2018 3:38 PM CHIEF LOCK OPERATOR): Goal of treatment , LDL cholesterol less [...] labs. Assessment & Plan (04/12/2024 3:53 PM CHIEF LOCK OPERATOR): Chronic, not at goal Importance of diet [...] day Assessment & Plan (02/27/2023 4:35 PM CHIEF LOCK OPERATOR): Hba1c was Lab Results Component Value Date [...] lowering insulin if any hypoglycemia once on Mounjaro. Update routine labs. Assessment & Plan (12/20/2021 [...] t Assessment & Plan (02/08/2021 4:07 PM CHIEF LOCK OPERATOR): Hba1c was Lab Results Component Value Date [...] adjustments: Assessment & Plan (03/16/2020 3:41 PM CHIEF LOCK OPERATOR): Hba1c was Lab Results Component Value Date [...] regimen Assessment & Plan (03/04/2019 4:08 PM CHIEF LOCK OPERATOR): Hba1c was Lab Results Component Value Date [...] discussed. Assessment & Plan (02/12/2018 3:37 PM CHIEF LOCK OPERATOR): Hba1c was Lab Results Component Value Date [...] goal hba1c is under 7.0 to prevent group home diabetes complications ( eye , kidney and [...] log sheet to every office visit. Start Trulicity. Assessment & Plan (01/30/2017 3:51 PM CHIEF LOCK OPERATOR): Hba1c was 7.5 today, indicating suboptimal DM [...] with type 2 diabetes mellitus 08/27/2024 08/27/2024 Immunizations Immunization Administration Dates Next Due Influenza Virus Vaccine Trivalent Mdv 01/08/2021 Influenza, Quadrivalent, Spl it, Intramuscular 01/05/2015 Influenza, Quadrivalent, Spl it, Preservative Free, Intramuscular 01/10/2020 Influenza, Trivalent, IM (MDV) 02/17/2014 Pfizer SARS-CoV-2 Monovalent Vaccination (12+ Yrs) PURPLE 01/17/2021,06/02/2020,04/29/2020 Tdap 01/02/2019 Social History Tobacco Use Types Packs/Day Years [...] on file Legal Sex Male 11:20 AM CHIEF LOCK OPERATOR Gender Identity Not on file Sexual Orientation Straight 04/12/2024 3: 24 PM CHIEF LOCK OPERATOR Last Filed Vital Signs Vital Sign Reading Time Taken Comments Blood Pressure 122/70 08/27/2024 2:34 PM CDT Pulse 91 08/27/2024 2:34 PM CDT Temperature 36.5 C (97.7 F) 09/23/2021 2:55 PM CDT Respiratory Rate 17 04/12/2024 3:33 PM CHIEF LOCK OPERATOR Oxygen Saturation 100% 04/26/2023 1:55 PM CHIEF LOCK OPERATOR Inhaled Oxygen Concentration - - Weight 103.9 kg (229 lb) 08/27/2024 2:34 PM CDT Height 182.9 cm (6') 08/27/2024 2:34 PM CDT Body Mass Index 31.06 08/27/2024 2:34 PM CDT Plan of Treatment Not on file Procedures Procedure Name Priority Date/Time Associated Diagnosis [...] CDT FASTING:YES FASTING: YES Marialuisa ORTEGA LAB URINE ORDERABLES Fi nal Result [facility] [address] [address] [phone] * (ABNORMAL) Lipid panel (08/30/2024 8:12 AM CDT) Cholesterol 127 <200 mg/dL [facility] Chan HDL 39(L) > OR = 40 mg/dL [facility]S [facility] Dustin Triglycerides 72 <150 mg/dL TogetheraHayden Chan LDL 73 mg/dL (calc) Daniel Chan Comment: Reference range: <100 Desirable range <100 mg/dL for primary prevention; <70 mg/dL for patients with CHD or diabetic patients with > or = 2 CHD risk factors. LDL-C is now calculated using the Lisandro calculation, which is a validated novel method providing better accuracy than the Friedewald equation in the estimation of LDL-C. Damián SS et al. SARA. 2013;310(19): 6962-7983 (http://education.aiHit/faq/WKJ756) Chol/HDL ratio 3.3 <5.0 (calc) Daniel Chan [...] ORTEGA LAB BLOOD ORDERABLES Fi nal Result [facility] [address] [place] [address] * (ABNORMAL) Comprehensive metabolic panel (08/30/2024 8:12 AM CDT) Pathologist [facility] Glucose 149(H) 65 - 99 mg/dL Daniel Chan Comment: Fasting reference interval For someone without known diabetes, a glucose value >125 mg/dL indicates that they may have diabetes and this should be confirmed with a follow-up test. BUN 13 7 - 25 mg/dL Daniel SmartCellsHayden Chan Creatinine 0.72 0.60 - 1.29 mg/dL TogetheraHayden Chan eGFR 118 > OR = 60 mL/min/1.7 3m2 Daniel SmartCellsHayden Chan BUN/creat ratio SEE NOTE: 6 - 22 (calc) [facility]-Pasquale Chan Comment: Not Reported: BUN and Creatinine are within reference range. Sodium 135 135 - 146 mmol/L Daniel Hollins-Pasquale Chan Potassium, pl 4.1 3.5 - 5.3 mmol/L Daniel Hollins-Pasquale Chan Chloride 100 98 - 110 mmol/L Daniel Hollins-S newton Chan CO2 30 20 - 32 mmol/L [facility]Pasquale Chan Calcium 9.0 8.6 - 10.3 mg/dL Daniel [facility]Pasquale Chan Protein, sr 6.5 6.1 - 8.1 g/dL Daniel [facility]S newton Chan Albumin 4.2 3.6 - 5.1 g/dL Daniel [facility]S [facility]ton Chan GLOBULIN 2.3 1.9 - 3.7 g/dL (calc) Daniel Hollins-Pasquale Chan Alb/glob ratio 1.8 1.0 - 2.5 (calc) T[facility]-Pasquale Chan Bilirubin, total 0.7 0.2 - 1.2 mg/dL Daniel [facility]Pasquale Chan Alk phos 59 36 - 130 U/L [facility]Pasquale Chan AST 13 10 - 40 U/L [facility]Pasquale Chan ALT (SGPT) 12 9 - 46 U/L [facility]-Pasquale Chan Blood 08/30/2024 8:12 AM CDT 08/30/2024 8:13 AM CDT Narrative [facility] - 08/31/2024 3:23 AM CDT FASTING:YES FASTING: YES Marialuisa ORTEGA LAB BLOOD ORDERABLES Fi nal Result [facility] [address] [place] [address] * (ABNORMAL) POCT hemoglobin A1c (08/27/2024 2:37 PM CDT) Hemoglobin A1C, POC 7.5(A) 4.0 - 5.6 % Capillary blood 08/27/2024 2 :37 PM CDT Marialuisa ORTEGA POINT OF CARE TEST ORDE RABPORSHA Final Result * POCT glucose (08/27/2024 2:37 PM CDT) Glucose Blood, POC 201 Normal Fasting 70 - 100, Random <200 mg/dL Blood 08/27/2024 2:37 PM CDT Marialuisa ORTEGA POINT OF CARE TEST ORDE RABLES Final Result * DIABETES EYE EXAM (06/05/2024) 06/05/2024 Historical Provider HEALTH MAINTENANCE Edited Result - Final from Last 3 Months or Most Recently Relevant to Health Maintenance Insurance [employer] Care Teams Field Crop Farmworker Relationship Specialty Start Date End Date Dl Johns MD PCP - General 06/24/16
[2024-10-02 09:10] VITALS: BP 130/81; PULSE 103; RESP 19; TEMP 36.7; O2SAT 98
[2024-10-02] MEDS: LACTATED RINGERS 1,000 ML 150 ML IV CONT (09:13)
--- NOTE | 2024-10-02 09:51 | P.PNAN_ITS ---
Anes - Initial Pre Proc Eval Procedure: Operation Date: 10/02/24 10:30 Proposed Procedures p Esophagogastroduodenoscopy - Silvestre Foley MD Date/Time: 10/02/24 09:51 Surgeon: Silvestre Foley MD Pre Op Diagnosis: Right upper quadrant pain, Gerd Patient Data Age: 39 Gender: M Height: 1.83 m Weight: 103.1 kg Last Vital Signs Temp 98.1 F 10/02/24 09:10 Pulse 103 H 10/02/24 09:10 Resp 19 10/02/24 09:10 BP 130/81 10/02/24 09:10 Pulse Ox 98 10/02/24 09:10 O2 Del Method Room Air 10/02/24 09:10 Allergies Allergy/AdvReac Type Severity Reaction Status Date / Time No Known Allergies Allergy Verified 07/17/24 15:34 Home Medications ?Medication ?Instructions ?Recorded ?Confirmed ?Type allopurinol 300 mg tablet 300 mg PO DAILY 10/09/20 10/02/24 History atorvastatin 20 mg tablet 20 mg PO DAILY 10/09/20 10/02/24 History empagliflozin 10 mg tablet 10 mg PO DAILY 10/09/20 10/02/24 History (Jardiance) glimepiride 2 mg tablet 2 mg PO BID 10/09/20 10/02/24 History insulin lispro protamine-lispro 24 unit subcut BID 10/09/20 10/02/24 History 100 unit/mL (75-25) subcutaneous pen metformin 1,000 mg tablet 1,000 mg PO BID 10/09/20 10/02/24 History sucralfate 1 gram tablet (Carafate) 1 g PO ACHS #120 tabs 08/30/23 09/11/24 Rx dexlansoprazole 60 mg 60 mg PO DAILY #90 caps 01/17/24 09/11/24 Rx capsule,biphase delayed release (Dexilant) losartan 25 mg tablet 50 mg PO DAILY 01/17/24 10/02/24 History omeprazole 40 mg capsule,delayed See Rx Instructions .Route 01/17/24 09/11/24 Rx release .COMPLEX #180 caps colestipol 1 gram tablet 1 g PO BID 90 days #180 tabs 04/10/24 10/02/24 Rx rabeprazole 20 mg tablet,delayed 20 mg PO BID 90 days #180 tabs 04/10/24 10/02/24 Rx release (AcipHex) semaglutide 1 mg/dose (4 mg/3 mL) 1 mg subcut WEEKLY 07/17/24 10/02/24 History subcutaneous pen injector (Ozempic) insulin NPH-regular 70-30 U-100 28 unit subcut BID 09/11/24 10/02/24 History insulin 100 unit/mL subcutaneous pen (Humulin 70/30 U-100 KwikPen) Laboratory Tests 10/02/24 09:16 POC Capillary Glucose 186 H mg/dl (65-105) Patient hx anesthesia problems: none Family hx anesthesia problems: none Results Review: All pre-operative results and documents have been reviewed as part of the pre- operative evaluation. [facility] Past Medical History Medical History Colon cancer screening Reflux esophagitis Diabetes mellitus Hematochezia GERD (gastroesophageal reflux disease) RUQ pain Diabetes type 2, controlled Hyperlipidemia Family History Family History Father Diabetes mellitus Mother Hypertension Social History Social History Smoking status: Never smoker Alcohol intake: current Drinks per week: 1 Substance use: never Substance use type: does not use Living arrangements: with family Gender identity (if verbalized by the patient): Male Spiritual care concerns: No Anes - Eval Final PreProcedure Day of Procedure 10/02/24 09:51 Patient weight: obese Lungs: normal air movement Airway: Mallampati scale class II Neurological: alert and oriented Last oral intake: >/= 8 hours ASA classification: III Emergent: no Anesthetic plan: proceed Anesthesia type and monitoring: general GIVS and standard monitoring Results Review: All pre-operative results and documents have been reviewed as part of the pre- operative evaluation. DM fsbs 186, HTN, hyperlipidemia. Informed Consent: The patient's anesthetic plan and its attendant risks and benefits were discussed with the patient/family/POA. Questions were solicited and answers provided to the satisfaction of the patient/family/POA.
--- NOTE | 2024-10-02 09:56 | PM.HPGS ---
History of Present Illness History of Present Illness Consent: Risks, benefits, and alternatives have been discussed and questions answered. Patient agrees to proceed with procedure. Chief complaint: Right upper quadrant pain, Gerd Narrative: Weston Magdaleno is a 39 year old male with gerd controlled on med, intermittent abdominal pain but recently better, imaging no major findings, also h/o DM. Review of Systems Review of Systems: All systems reviewed & are unremarkable except as noted in HPI and below PMFSH Past Medical History Medical History Colon cancer screening Reflux esophagitis Diabetes mellitus Hematochezia GERD (gastroesophageal reflux disease) RUQ pain Diabetes type 2, controlled Hyperlipidemia Family History Family History Father Diabetes mellitus Mother Hypertension Social History Social History Smoking status: Never smoker Alcohol intake: current Drinks per week: 1 Substance use: never Substance use type: does not use Living arrangements: with family Gender identity (if verbalized by the patient): Male Spiritual care concerns: No Meds Home Medications and Allergies Home Medications ?Medication ?Instructions ?Recorded ?Confirmed ?Type allopurinol 300 mg tablet 300 mg PO DAILY 10/09/20 10/02/24 History atorvastatin 20 mg tablet 20 mg PO DAILY 10/09/20 10/02/24 History empagliflozin 10 mg tablet 10 mg PO DAILY 10/09/20 10/02/24 History (Jardiance) glimepiride 2 mg tablet 2 mg PO BID 10/09/20 10/02/24 History insulin lispro protamine-lispro 24 unit subcut BID 10/09/20 10/02/24 History 100 unit/mL (75-25) subcutaneous pen metformin 1,000 mg tablet 1,000 mg PO BID 10/09/20 10/02/24 History sucralfate 1 gram tablet (Carafate) 1 g PO ACHS #120 tabs 08/30/23 09/11/24 Rx dexlansoprazole 60 mg 60 mg PO DAILY #90 caps 01/17/24 09/11/24 Rx capsule,biphase delayed release (Dexilant) losartan 25 mg tablet 50 mg PO DAILY 01/17/24 10/02/24 History omeprazole 40 mg capsule,delayed See Rx Instructions .Route 01/17/24 09/11/24 Rx release .COMPLEX #180 caps colestipol 1 gram tablet 1 g PO BID 90 days #180 tabs 04/10/24 10/02/24 Rx rabeprazole 20 mg tablet,delayed 20 mg PO BID 90 days #180 tabs 04/10/24 10/02/24 Rx release (AcipHex) semaglutide 1 mg/dose (4 mg/3 mL) 1 mg subcut WEEKLY 07/17/24 10/02/24 History subcutaneous pen injector (Ozempic) insulin NPH-regular 70-30 U-100 28 unit subcut BID 09/11/24 10/02/24 History insulin 100 unit/mL subcutaneous pen (Humulin 70/30 U-100 KwikPen) Allergies Allergy/AdvReac Type Severity Reaction Status Date / Time No Known Allergies Allergy Verified 07/17/24 15:34 Vital Signs Vital Signs - 24 hr 10/02/24 09:10 Temperature 98.1 F Pulse Rate 103 H Respiratory Rate 19 Blood Pressure 130/81 Pulse Oximetry 98 Oxygen Delivery Room Air Exam Const: General: comfortable and no acute distress HENMT: Face/Nose/Sinus: Normal nares present Eyes: General: appearance normal, both eyes and all related structures Neck: Neck: no JVD Resp: Auscultation: clear to auscultation bilaterally Cardio: Rate: regular rate Rhythm: regular rhythm GI: Inspection: non-distended GI Palp: Yes Soft to palpation Skin: General skin exam: normal color Neuro: General: gait normal Speech: normal speech Extrem: General: normal to inspection Psych: Mental Status: mental status grossly normal Assessment and Plan Assessment and plan (1) GERD (gastroesophageal reflux disease): Qualifiers: Esophagitis presence: with esophagitis Code(s): K21.9 - Gastro-esophageal reflux disease without esophagitis Status: Acute Assessment and Plan: egd (2) RUQ pain: Code(s): R10.11 - Right upper quadrant pain Status: Acute
[2024-10-02 10:01] VITALS: BP 123/81; PULSE 94; RESP 16; O2SAT 99
--- NOTE | 2024-10-02 10:01 | S_PTH ---
PATIENT: Weston Magdaleno LOC: [facility]#:[id number] AGE/SX: 39/M ROOM: RE10/02/[address]: Silvestre Foley MD : 1985 BED: DIS: 10/02/2024 SPEC #: [id number] RECD: 10/02/24 13:12 STATUS: CHUN REJuan C #: [id number] ANNA: 10/02/24 10:[address]: Silvestre Foley DEPT: [facility] Surgical RECD BY: Shell Salazar ENTERED: 10/02/24 13:12 SP TYPE: Surgical OTHR DR: Dl JohnsMD Tissues: A - Gastric Biopsy B - Small Bowel Bx Procedures: Hematoxylin and Eosin Stain Gross and Microscopic Level 4
[2024-10-02 10:11] VITALS: BP 128/83; PULSE 105; RESP 18; O2SAT 100
[2024-10-02 10:21] VITALS: BP 129/80; PULSE 90; RESP 19; O2SAT 100
== END 2024-10-02 10:27 | disposition home or self-care (01) ==
PROVIDERS: PCP Internal Medicine; Referring Provider Internal Medicine Gastroenterology; Visit Provider Internal Medicine Gastroenterology
PROC: 0DJ08ZZ Inspection of Upper Intestinal Tract, Via Natural or Artificial Opening Endoscopic (ICD-10-PCS; CPT 43239; principal; 2024-10-02 10:30)
DX: K21.9 Gastro-esophageal reflux disease without esophagitis (principal); K31.89 Other diseases of stomach and duodenum; K31.84 Gastroparesis; E11.9 Type 2 diabetes mellitus without complications; E78.5 Hyperlipidemia, unspecified; I10 Essential (primary) hypertension; E66.9 Obesity, unspecified; Z68.30 Body mass index [BMI] 30.0-30.9, adult; Z79.84 Long term (current) use of oral hypoglycemic drugs; Z79.4 Long term (current) use of insulin; Z79.85 Long-term (current) use of injectable non-insulin antidiabetic drugs
CPT/HCPCS: 43239; 82948; 88305; J2704; J7120

== ENCOUNTER 2024-10-22 07:39 | Outpatient (CLI) | payer BC, SELFPAY ==
--- NOTE | ~2024-10-22 | NM_ITS ---
EXAM: NM gastric emptying study DATE: 10/22/2024 12:14 INDICATION: Right upper quadrant pain TECHNIQUE: A gastric emptying study was performed using the methodology of Guillaume IHLTON, et al. J Nucl Med 2007; 48:568-572. The patient was given a meal consisting of 2 scrambled eggs labeled with 0.99 mCi Tc-99m sulfur colloid, 2 slices of toast, two packages of jam, and approximately 120 mL of water. Simultaneous anterior and posterior 1-min images of the abdomen were obtained with the patient supin e at multiple time points over a total period of 4 hours. The geometric mean of anterior and posterio r views was determined, and the percentage retention was calculated for each time point. COMPARISON: None. FINDINGS: Gastric retention of the radiotracer-labeled meal was 93%, 82%, and 70% at the 1-hour, 2-hour, and 4- hour time points, respectively. With this technique, apparent rapid gastric emptying is suggested by <30% gastric retention at 1 hour. Delayed gastric emptying is defined by gastric retention of >90% at 1 hour, >60% retention at 2 hours, or >10% retention at 4 hours. IMPRESSION: 1. Delayed gastric emptying. Reviewed, dictated and finalized at location A.
== END 2024-10-22 07:40 | disposition home or self-care (01) ==
LOC: ANHIMG 07:43
PROVIDERS: PCP Internal Medicine; Visit Provider Internal Medicine Gastroenterology
DX: R10.11 Right upper quadrant pain (principal); K21.9 Gastro-esophageal reflux disease without esophagitis; E11.9 Type 2 diabetes mellitus without complications; K30 Functional dyspepsia
CPT/HCPCS: 78264; A9541